=== PATIENT | male | born 1960 | race Hispanic/Latino ===

== ENCOUNTER 2016-10-25 00:39 | Inpatient (IN) | payer OTHER ==
[2016-10-25 00:40] VITALS: BMI 22.1
[2016-10-25] MEDS: Albuterol-Ipratrop 3 mg / 0.5 (3 ml) UD IH SCH ×4 (00:50→03:48)
--- NOTE | 2016-10-25 00:55 | ED PDOC ---
Arrival/HPI - General Chief Complaint: Shortness Of Breath Time Seen by Provider: 10/25/16 00:48 Historian: Patient - History of Present Illness Narrative History of Present Illness (Text): 10/25/16 00:54 Rik Vaughn is a 56 year old male, whose past medical history includes asthma , COPD, seizure disorder, hyperlipidemia, and alcohol abuse, who presents to the Emergency department complaining of shortness of breath. Patient states has been experiencing shortness of breath since symptoms are consistent with previous episodes of asthma. Patient states he used his inhalers at home but denies any significant relief. Patient denies any fever, chills, chest pain, nausea, vomiting, diarrhea, urinary symptoms, back pain, neck pain, headache, dizziness, or any other complaints. Time/Duration: 4-6 hours (18:00 yesterday) Symptom Onset: Gradual Symptom Course: Unchanged Activities at Onset: Rest, Light Context: Home Past Medical History - Provider Review Nursing Documentation Reviewed: Yes - Tetanus Immunization Tetanus Immunization: Unknown - Cardiac Hx Hypertension: Yes - Pulmonary Hx Respiratory Disorders: Yes Hx Asthma: Yes - Neurological Hx Neurological Disorder: Yes (forgetful) Hx Seizures: Yes (last hyoilek69/20/16) Hx Transient Ischemic Attacks (TIA): No Other/Comment: head trauma post fall 20 yrs ago, excision brain hematoma 20 yrs ago - HEENT Hx HEENT Disorder: Yes (reading glasses) Hx Blind: No - Endocrine/Metabolic Hx Hypothyroidism: Yes - Hematological/Oncological Hx Blood Disorders: No - Integumentary Hx Dermatological Disorder: No - Musculoskeletal/Rheumatological Hx Falls: Yes (head trauma 20 yrs ago) - Gastrointestinal Hx Gastrointestinal Disorders: Yes (weight loss) Hx Colostomy: Yes (ileostomy x2) Hx Gastroesophageal Reflux: Yes - Genitourinary/Gynecological Hx Genitourinary Disorders: Yes Hx Prostate Problems: Yes (bph slow urine stream) - Psychiatric Hx Anxiety: Yes Hx Emotional Abuse: No Hx Physical Abuse: No Hx Substance Use: No - Surgical History Hx Appendectomy: Yes Other/Comment: laparotomy/reversal of ileostomy/ partial small bowel resection today 05/18/16, exp lap 02/09/16, small bowel sx 02/16/16, perforated ap, pelvic and mucosa fistula reconstruction, ileostomy 01/2016 - Anesthesia Hx Anesthesia: Yes Hx Anesthesia Reactions: No Hx Malignant Hyperthermia: No - Suicidal Assessment Feels Threatened In Home Enviroment: No Family/Social History - Physician Review Nursing Documentation Reviewed: Yes Family/Social History: No Known Family HX Smoking Status: Former Smoker Hx Alcohol Use: Yes (quit 7 yrs ago) Hx Substance Use: No Allergies/Home Meds Allergies/Adverse Reactions: Allergies No Known Allergies Allergy (Verified 10/25/16 00:47) Review of Systems - Physician Review All systems were reviewed & negative as marked: Yes - Review of Systems Constitutional: Normal. absent: Fevers Eyes: Normal ENT: Normal Respiratory: SOB Cardiovascular: Normal. absent: Chest Pain Gastrointestinal: Normal. absent: Abdominal Pain, Diarrhea, Nausea, Vomiting Genitourinary Male: Normal. absent: Dysuria, Frequency, Hematuria, Urinary Output Changes Musculoskeletal: Normal. absent: Back Pain, Neck Pain Skin: Normal. absent: Rash Neurological: Normal. absent: Headache, Dizziness Endocrine: Normal Hemo/Lymphatic: Normal Psychiatric: Normal Physical Exam Vital Signs Reviewed: Yes Vital Signs Temp Pulse Resp BP Pulse Ox 10/25/16 13:00 93 H 17 119/59 L 97 10/25/16 12:33 87 18 128/69 10/25/16 11:00 87 17 128/69 100 10/25/16 08:58 86 18 126/82 100 10/25/16 07:00 89 17 115/73 98 10/25/16 06:41 113 H 115/73 10/25/16 05:41 100 H 18 120/63 96 10/25/16 04:09 113/66 10/25/16 03:20 109 H 18 121/72 98 10/25/16 00:55 25 H 10/25/16 00:50 98.4 F 116 H 24 153/95 H 93 L Temperature: Afebrile Blood Pressure: Normal Pulse: Regular Respiratory Rate: Normal Appearance: Positive for: Well-Appearing, Non-Toxic, Comfortable Pain Distress: None Mental Status: Positive for: Alert and Oriented X 3 - Systems Exam Head: Present: Atraumatic, Normocephalic Pupils: Present: PERRL Extroacular Muscles: Present: EOMI Conjunctiva: Present: Normal Mouth: Present: Moist Mucous Membranes Neck: Present: Normal Range of Motion Respiratory/Chest: Present: Wheezes. No: Respiratory Distress, Accessory Muscle Use Cardiovascular: Present: Regular Rate and Rhythm, Normal S1, S2. No: Murmurs Abdomen: Present: Normal Bowel Sounds. No: Tenderness, Distention, Peritoneal Signs Back: Present: Normal Inspection Upper Extremity: Present: Normal Inspection. No: Cyanosis, Edema Lower Extremity: Present: Normal Inspection. No: Edema Neurological: Present: GCS=15, CN II-XII Intact, Speech Normal Skin: Present: Warm, Dry, Normal Color. No: Rashes Psychiatric: Present: Alert, Oriented x 3, Normal Insight, Normal Concentration Medical Decision Making ED Course and Treatment: 10/25/16 00:54 Impression: 56 year old male complaining of shortness of breath. Differential Diagnosis include but are not limited to: asthma vs. COPD Plan: -- EKG -- Chest X-ray -- Labs, troponin -- Duoneb -- Solu-medrol -- Reassess and disposition Prior Visits: Notes and results from previous visits were reviewed. Progress Notes: Reviewed EKG, sinus tachycardia at 115 bpm. Non-specific ST/T wave changes. 10/25/16 02:30 Reviewed radiology, Chest X-ray shows no acute processes. 10/25/16 03:[address] Simms, who is aware and agrees with plan. Accepts pt in to his service. Pt will go to Telemetry observation for asthma. Discussed results and hospital observation plan with pt, who is aware and verbalizes understanding. 7am dr simms wants pt evaluated for icu dr brewer will come to ed , dr layton to follow up on icu 10/26/16 06:05 - Lab Interpretations Microbiology Results: Microbiology Results 10/25/16 01:10 Blood-Venous Blood Culture - Preliminary NO GROWTH AFTER 24 HOURS 10/25/16 00:55 Blood-Venous Blood Culture - Preliminary NO GROWTH AFTER 24 HOURS Lab Results: 10/25/16 00:56 10/25/16 00:56 Lab Results 10/25/16 03:00: Phenytoin 8 L 10/25/16 03:00: NT-Pro-B Natriuret Pep 48.3 10/25/16 03:00: PT 10.5, INR 0.97, APTT 25.2 10/25/16 00:56: Sodium 143, Potassium 3.8, Chloride 102, Carbon Dioxide 31, Anion Gap 14, BUN 19, Creatinine 0.9, Est GFR ( Amer) > 60, Est GFR (Non- Af Amer) > 60, Random Glucose 98, Calcium 9.2, Total Bilirubin 0.2, AST 37, ALT 35, Alkaline Phosphatase 122, Troponin I < 0.01 D, Total Protein 7.5, Albumin 4.5, Globulin 3.0, Albumin/Globulin Ratio 1.5 10/25/16 00:56: WBC 17.3 H D, RBC 4.18, Hgb 13.2 L, Hct 38.2 L, MCV 91.4, MCH 31.6, MCHC 34.6, RDW 13.5, Plt Count 256, MPV 11.2 H, Gran % 79.1 H, Lymph % ( Auto) 11.8 L, Patrick % (Auto) 7.2 H, Eos % (Auto) 1.7, Baso % (Auto) 0.2, Gran # 13.65 H, Lymph # 2.0, Patrick # 1.3 H, Eos # 0.3, Baso # 0.03 I have reviewed the lab results: Yes - RAD Interpretation Radiology Orders: 10/25/16 01:55 CHEST PORTABLE [RAD] Stat Monorail Helper: ED Physician - EKG Interpretation Interpreted by ED Physician: Yes Type: 12 lead EKG - Medication Orders Current Medication Orders: Acetaminophen (Tylenol 325mg Tab) 650 mg PO Q4H PRN PRN Reason: Fever >100.5 F Last Admin: 10/25/16 03:51 Dose: 650 mg Re-Assess: MAR Pain/Vitals Document 10/25/16 04:50 RD (Rec: 10/25/16 04:50 RD [id number]) Pain Reassessment Is This A Pain ReAssessment? No Sleep Is patient sleeping during reassessment? No Presence of Pain Presence of Pain No Acetylcysteine (Acetylcysteine 20%) 4 ml IH [id number] [facility] Last Admin: 10/26/16 02:00 Dose: 4 ml Albuterol/Ipratropium (Duoneb 3 Mg/0.5 Mg (3 Ml) Ud) 3 ml IH Q4H PRN PRN Reason: Wheezing Last Admin: 10/25/16 08:48 Dose: 3 ml Aspirin (Ecotrin) 81 mg PO DAILY [facility] Last Admin: 10/25/16 10:03 Dose: 81 mg Enoxaparin Sodium (Lovenox) 40 mg SC DAILY [facility] PRN Reason: Protocol Last Admin: 10/25/16 10:07 Dose: Ergocalciferol (Drisdol 50,000 Intl Units Cap) 1 cap PO WED [facility] Folic Acid (Folic Acid) 1 mg PO DAILY [facility] Last Admin: 10/25/16 10:03 Dose: 1 mg Furosemide (Lasix) 20 mg IVP Q12 [facility] Last Admin: 10/25/16 22:29 Dose: 20 mg Doxycycline Hyclate 100 mg/ (Sodium Chloride) 100 mls @ 100 mls/hr IVPB Q12 [facility] PRN Reason: Protocol Last Admin: 10/25/16 22:32 Dose: 100 mls/hr Cefepime HCl (Maxipime 1gm) 1 gm in 100 mls @ 100 mls/hr IVPB Q12 [facility] PRN Reason: Protocol Last Admin: 10/25/16 23:49 Dose: 100 mls/hr Levalbuterol HCl (Xopenex) 0.63 mg IH [id number] [facility] Last Admin: 10/26/16 02:05 Dose: Not Given Non-Admin Reason: Patient Asleep Levetiracetam (Keppra) 500 mg PO BID [facility] Last Admin: 10/25/16 17:53 Dose: 500 mg Magnesium Oxide (Mag-Ox) 400 mg PO BID [facility] Last Admin: 10/25/16 17:52 Dose: 400 mg Methylprednisolone (Solu-Medrol) 30 mg IVP Q8H [facility] Last Admin: 10/25/16 22:31 Dose: 30 mg Metoprolol Tartrate (Lopressor) 25 mg PO BRKDIN [facility] Last Admin: 10/25/16 17:53 Dose: 25 mg Midodrine (Proamatine) 5 mg PO Q8 [facility] Last Admin: 10/25/16 22:30 Dose: 5 mg Pantoprazole Sodium (Protonix Ec Tab) 40 mg PO 0630 [facility] Last Admin: 10/25/16 06:40 Dose: 40 mg Phenytoin Sodium (Dilantin) 200 mg PO Q12 [facility] Last Admin: 10/25/16 22:29 Dose: 200 mg Potassium Chloride (K-Dur 20 Meq Er Tab) 20 meq PO ACBD [facility] Last Admin: 10/25/16 17:53 Dose: 20 meq Tamsulosin HCl (Flomax) 0.4 mg PO DAILY [facility] Last Admin: 10/25/16 10:03 Dose: 0.4 mg Discontinued Medications Albuterol/Ipratropium (Duoneb 3 Mg/0.5 Mg (3 Ml) Ud) 3 ml IH Q15M [facility] Last Admin: 10/25/16 03:48 Dose: Albuterol/Ipratropium (Duoneb 3 Mg/0.5 Mg (3 Ml) Ud) 3 ml IH STAT STA Stop: 10/25/16 03:05 Last Admin: 10/25/16 03:12 Dose: 3 ml Doxycycline Hyclate 100 mg/ (Sodium Chloride) 100 mls @ 100 mls/hr IVPB STAT STA PRN Reason: Protocol Stop: 10/25/16 04:39 Last Admin: 10/25/16 04:36 Dose: 100 mls/hr Ceftriaxone Sodium (Rocephin 1 Gram Ivpb) 1 gm in 100 mls @ 200 mls/hr IVPB STAT STA PRN Reason: Protocol Stop: 10/25/16 04:09 Last Admin: 10/25/16 03:49 Dose: 200 mls/hr Methylprednisolone 30 gm/ (Sodium Chloride) 250 mls @ 500 mls/hr IV Q8H [facility] Phenytoin 500 mg/ Sodium (Chloride) 100 mls @ 120 mls/hr IVPB STAT STA Stop: 10/25/16 07:22 Last Admin: 10/25/16 06:58 Dose: 120 mls/hr Methylprednisolone (Solu-Medrol) 125 mg IVP ONCE ONE Stop: 10/25/16 00:55 Last Admin: 10/25/16 01:05 Dose: 125 mg Phenytoin Sodium (Dilantin) 100 mg PO Q8H [facility] Last Admin: 10/25/16 04:36 Dose: 100 mg - Ernestineibe Statement The provider has reviewed the documentation as recorded by the Ron Sheikh All medical record entries made by the Ron were at my direction and personally dictated by me. I have reviewed the chart and agree that the record accurately reflects my personal performance of the history, physical exam, medical decision making, and the department course for this patient. I have also personally directed, reviewed, and agree with the discharge instructions and disposition. Disposition/Present on Arrival - Present on Arrival Any Indicators Present on Arrival: No History of DVT/PE: No History of Uncontrolled Diabetes: No Urinary Catheter: No History of Decub. Ulcer: No History Surgical Site Infection Following: None - Disposition Have Diagnosis and Disposition been Completed?: Yes Diagnosis: Asthma attack, Pneumonia Disposition: HOSPITALIZED Disposition Time: 07:00 Patient Problems: Current Active Problems Problem Status Onset Asthma attack Acute Condition: FAIR
[2016-10-25 02:10] LABS: ADD MANUAL DIFF? NO
[2016-10-25 02:13] LABS: BASO # 0.03 K/mm3 (0.0-2.0); BASO % 0.2 % (0.0-3.0); EOS # 0.3 (0.0-0.7); EOS % 1.7 % (1.5-5.0); GRAN # 13.65 (1.4-6.5); GRAN % 79.1 % (50.0-68.0); HEMATOCRIT 38.2 % (42.0-52.0); LYMPH % 11.8 % (22.0-35.0); MEAN CELL VOLUME 91.4 fL (80.0-105.0); MEAN CORPUSCULAR HEMOGLOBIN 31.6 pg (25.0-35.0); MEAN CORPUSCULAR HGB CONC 34.6 g/dl (31.0-37.0); MEAN PLATELET VOLUME 11.2 fl (7.0-11.0); MONO # 1.3 (0.1-0.6); MONO % 7.2 % (1.0-6.0); PLATELET COUNT 256 10^3/uL (120.0-450.0); RED CELL DISTRIBUTION WIDTH 13.5 % (11.5-14.5); WHITE BLOOD COUNT 17.3 10^3/ul (4.5-11.0)
[2016-10-25 02:22] LABS: ALB/GLOB RATIO 1.5 (1.1-1.8); ALKALINE PHOSPHATASE 122 U/L (38-133); ALT/SGPT 35 U/L (7-56); AST/SGOT 37 U/L (15-59); BILIRUBIN,TOTAL 0.2 mg/dL (0.2-1.3); BLOOD UREA NITROGEN 19 mg/dL (7-21); CALCIUM 9.2 mg/dL (8.4-10.5); CARBON DIOXIDE 31 mmol/L (21-33); CHLORIDE 102 mmol/L (98-107); GFR AFRICAN-AMERICAN > 60; GLUCOSE,RANDOM 98 mg/dL (70-110); POTASSIUM 3.8 mmol/L (3.6-5.0); SODIUM 143 mmol/L (132-148); TOTAL PROTEIN 7.5 g/dL (5.8-8.3)
[2016-10-25 02:35] LABS: TROPONIN I < 0.01 ng/mL
[2016-10-25] MEDS ORDERED: Albuterol-Ipratrop 3 mg / 0.5 (3 ml) UD IH STA (03:04)
[2016-10-25] MEDS ORDERED: cefTRIAXone 1 gm 1 GM/100 ML BAG IVPB STA (03:40)
[2016-10-25] MEDS ORDERED: Albuterol-Ipratrop 3 mg / 0.5 (3 ml) UD IH PRN (03:41)
[2016-10-25] MEDS: Magnesium Oxide 400 mg Tab UD PO SCH ×3 (04:09→17:52)
[2016-10-25] MEDS ORDERED: methylPREDNISolone 30 GM in Sodium Chloride 0.9% 250 ML IV SCH (04:15)
[2016-10-25 04:18] LABS: INR 0.97 (0.93-1.08); PARTIAL THROMBOPLASTIN TIME 25.2 Seconds (23.7-30.8)
[2016-10-25 05:19] LABS: TROPONIN I < 0.01 ng/mL
[2016-10-25] MEDS: MethylPREDNISolone 40 mg Vial IVP SCH ×3 (05:25→22:31)
[2016-10-25] MEDS: Enoxaparin 40 mg Syringe SC SCH ×2 (05:32→10:07)
[2016-10-25] MEDS ORDERED: Phenytoin 500 MG in Sodium Chloride 0.9% 100 ML IVPB STA (06:33)
[2016-10-25] MEDS: Pantoprazole 40 mg EC Tab PO SCH (06:40)
[2016-10-25] MEDS: Potassium Chloride 20 mEq ER Tab PO SCH ×2 (06:41→17:53)
--- NOTE | 2016-10-25 07:24 | ED PDOC ---
Physical Exam Vital Signs Temp Pulse Resp BP Pulse Ox 10/25/16 08:58 86 18 126/82 100 10/25/16 07:00 89 17 115/73 98 10/25/16 06:41 113 H 115/73 10/25/16 05:41 100 H 18 120/63 96 10/25/16 04:09 113/66 10/25/16 03:20 109 H 18 121/72 98 10/25/16 00:55 25 H 10/25/16 00:50 98.4 F 116 H 24 153/95 H 93 L Medical Decision Making ED Course and Treatment: 10/25/16 07:00 Patient signed out to me by Dr. Martinez. Pending ICU Eval/Consult. 10/25/16 09:[address] Alexis Leon. We agree that patient can be admitted to Telemetry as planned. Patient is not in respiratory distress. - Lab Interpretations Lab Results: 10/25/16 00:56 10/25/16 00:56 Lab Results 10/25/16 03:00: Phenytoin 8 L 10/25/16 03:00: NT-Pro-B Natriuret Pep 48.3 10/25/16 03:00: PT 10.5, INR 0.97, APTT 25.2 10/25/16 00:56: Sodium 143, Potassium 3.8, Chloride 102, Carbon Dioxide 31, Anion Gap 14, BUN 19, Creatinine 0.9, Est GFR ( Amer) > 60, Est GFR (Non- Af Amer) > 60, Random Glucose 98, Calcium 9.2, Total Bilirubin 0.2, AST 37, ALT 35, Alkaline Phosphatase 122, Troponin I < 0.01 D, Total Protein 7.5, Albumin 4.5, Globulin 3.0, Albumin/Globulin Ratio 1.5 10/25/16 00:56: WBC 17.3 H D, RBC 4.18, Hgb 13.2 L, Hct 38.2 L, MCV 91.4, MCH 31.6, MCHC 34.6, RDW 13.5, Plt Count 256, MPV 11.2 H, Gran % 79.1 H, Lymph % ( Auto) 11.8 L, Bland % (Auto) 7.2 H, Eos % (Auto) 1.7, Baso % (Auto) 0.2, Gran # 13.65 H, Lymph # 2.0, Bland # 1.3 H, Eos # 0.3, Baso # 0.03 - RAD Interpretation Radiology Orders: 10/25/16 01:55 CHEST PORTABLE [RAD] Stat - Medication Orders Current Medication Orders: Acetaminophen (Tylenol 325mg Tab) 650 mg PO Q4H PRN PRN Reason: Fever >100.5 F Last Admin: 10/25/16 03:51 Dose: 650 mg Re-Assess: MAR Pain/Vitals Document 10/25/16 04:50 RD (Rec: 10/25/16 04:50 RD [id number]) Pain Reassessment Is This A Pain ReAssessment? No Sleep Is patient sleeping during reassessment? No Presence of Pain Presence of Pain No Acetylcysteine (Acetylcysteine 20%) 4 ml IH [id number] [facility] Last Admin: 10/25/16 08:03 Dose: 4 ml Albuterol/Ipratropium (Duoneb 3 Mg/0.5 Mg (3 Ml) Ud) 3 ml IH Q4H PRN PRN Reason: Wheezing Last Admin: 10/25/16 08:48 Dose: 3 ml Aspirin (Ecotrin) 81 mg PO DAILY [facility] Enoxaparin Sodium (Lovenox) 40 mg SC DAILY [facility] PRN Reason: Protocol Last Admin: 10/25/16 05:32 Dose: 40 mg Ergocalciferol (Drisdol 50,000 Intl Units Cap) 1 cap PO WED [facility] Folic Acid (Folic Acid) 1 mg PO DAILY [facility] Furosemide (Lasix) 20 mg IVP Q12 [facility] Last Admin: 10/25/16 04:09 Dose: 20 mg Doxycycline Hyclate 100 mg/ (Sodium Chloride) 100 mls @ 100 mls/hr IVPB Q12 [facility] PRN Reason: Protocol Cefepime HCl (Maxipime 1gm) 1 gm in 100 mls @ 100 mls/hr IVPB Q12 [facility] PRN Reason: Protocol Levalbuterol HCl (Xopenex) 0.63 mg IH [id number] [facility] Last Admin: 10/25/16 08:03 Dose: 0.63 mg Levetiracetam (Keppra) 500 mg PO BID [facility] Last Admin: 10/25/16 04:09 Dose: 500 mg Magnesium Oxide (Mag-Ox) 400 mg PO BID [facility] Last Admin: 10/25/16 04:09 Dose: 400 mg Methylprednisolone (Solu-Medrol) 30 mg IVP Q8H [facility] Last Admin: 10/25/16 05:25 Dose: Metoprolol Tartrate (Lopressor) 25 mg PO BRKDIN [facility] Last Admin: 10/25/16 06:41 Dose: 25 mg Midodrine (Proamatine) 5 mg PO Q8 [facility] Last Admin: 10/25/16 05:32 Dose: 5 mg Pantoprazole Sodium (Protonix Ec Tab) 40 mg PO 0630 [facility] Last Admin: 10/25/16 06:40 Dose: 40 mg Phenytoin Sodium (Dilantin) 200 mg PO Q12 [facility] Potassium Chloride (K-Dur 20 Meq Er Tab) 20 meq PO ACBD [facility] Last Admin: 10/25/16 06:41 Dose: 20 meq Tamsulosin HCl (Flomax) 0.4 mg PO DAILY [facility] Discontinued Medications Albuterol/Ipratropium (Duoneb 3 Mg/0.5 Mg (3 Ml) Ud) 3 ml IH Q15M [facility] Last Admin: 10/25/16 03:48 Dose: Albuterol/Ipratropium (Duoneb 3 Mg/0.5 Mg (3 Ml) Ud) 3 ml IH STAT STA Stop: 10/25/16 03:05 Last Admin: 10/25/16 03:12 Dose: 3 ml Doxycycline Hyclate 100 mg/ (Sodium Chloride) 100 mls @ 100 mls/hr IVPB STAT STA PRN Reason: Protocol Stop: 10/25/16 04:39 Last Admin: 10/25/16 04:36 Dose: 100 mls/hr Ceftriaxone Sodium (Rocephin 1 Gram Ivpb) 1 gm in 100 mls @ 200 mls/hr IVPB STAT STA PRN Reason: Protocol Stop: 10/25/16 04:09 Last Admin: 10/25/16 03:49 Dose: 200 mls/hr Methylprednisolone 30 gm/ (Sodium Chloride) 250 mls @ 500 mls/hr IV Q8H [facility] Phenytoin 500 mg/ Sodium (Chloride) 100 mls @ 120 mls/hr IVPB STAT STA Stop: 10/25/16 07:22 Last Admin: 10/25/16 06:58 Dose: 120 mls/hr Methylprednisolone (Solu-Medrol) 125 mg IVP ONCE ONE Stop: 10/25/16 00:55 Last Admin: 10/25/16 01:05 Dose: 125 mg Phenytoin Sodium (Dilantin) 100 mg PO Q8H [facility] Last Admin: 10/25/16 04:36 Dose: 100 mg - Ron Statement The provider has reviewed the documentation as recorded by the Ron Wei Provider Attestation: All medical record entries made by the Ron were at my direction and personally dictated by me. I have reviewed the chart and agree that the record accurately reflects my personal performance of the history, physical exam, medical decision making, and the department course for this patient. I have also personally directed, reviewed, and agree with the discharge instructions and disposition. Disposition/Present on Arrival - Present on Arrival Any Indicators Present on Arrival: No History of DVT/PE: No History of Uncontrolled Diabetes: No Urinary Catheter: No History of Decub. Ulcer: No History Surgical Site Infection Following: None - Disposition Have Diagnosis and Disposition been Completed?: Yes Diagnosis: Asthma attack Disposition: HOSPITALIZED Disposition Time: 03:39 Patient Plan: Admission Condition: FAIR
[2016-10-25] MEDS: Levalbuterol 0.63 MG/3 ML Inhal Soln UD IH SCH ×2 (08:03→14:26)
[2016-10-25] MEDS: Acetylcysteine 20% Inhal Soln (4ml) IH SCH ×2 (08:03→14:26)
[2016-10-25 08:38] LABS: TROPONIN I 0.02 ng/mL
--- NOTE | 2016-10-25 09:13 | CP.PCM.PN ---
Subjective - Date & Time of Evaluation Date of Evaluation: 10/25/16 Time of Evaluation: 08:40 - Subjective Subjective: 56 y/o M came to the ER w/ SOB , chest tightness and wheezing. In the ER received > 4 Albuterol treatments and Solumedrol. I was called to evaluate the patient per the PCP and ER physicians at 4a.m. I came to see the patient in the morning. He is sitting up speaking in full sentences but is upset and doesn't want to be examined or give any pertinent history . The patient did mention that he doesn't have a [employer] and he has been only using PROAIR roughly 10x day . His labs were reviewed and imaging. No findings of concern on the CT chest. Labs do show elevated WBC , for which he is started on ABX per the PCP. Elevated Lactate likely from Increased albuterol usage ( high proven in literature). Can repeat once albuterol frequency is lowered. No use of BIPAP or accessory muscles on R.A. Dr. Pearson from pulmonary is here as well and will be managing onwards. If pt worsens and warrants ICU please call back. Objective - Vital Signs/Intake and Output Vital Signs (last 24 hours): Temp Pulse Resp BP Pulse Ox 98.4 F 86 18 126/82 100 10/25/16 00:50 10/25/16 08:58 10/25/16 08:58 10/25/16 08:58 10/25/16 08:58 - Medications Medications: Current Medications Acetaminophen (Tylenol 325mg Tab) 650 mg PO Q4H PRN PRN Reason: Fever >100.5 F Last Admin: 10/25/16 03:51 Dose: 650 mg Acetylcysteine (Acetylcysteine 20%) 4 ml IH [id number] [facility] Last Admin: 10/25/16 08:03 Dose: 4 ml Albuterol/Ipratropium (Duoneb 3 Mg/0.5 Mg (3 Ml) Ud) 3 ml IH Q4H PRN PRN Reason: Wheezing Last Admin: 10/25/16 08:48 Dose: 3 ml Aspirin (Ecotrin) 81 mg PO DAILY [facility] Enoxaparin Sodium (Lovenox) 40 mg SC DAILY [facility] PRN Reason: Protocol Last Admin: 10/25/16 05:32 Dose: 40 mg Ergocalciferol (Drisdol 50,000 Intl Units Cap) 1 cap PO WED [facility] Folic Acid (Folic Acid) 1 mg PO DAILY [facility] Furosemide (Lasix) 20 mg IVP Q12 [facility] Last Admin: 10/25/16 04:09 Dose: 20 mg Doxycycline Hyclate 100 mg/ (Sodium Chloride) 100 mls @ 100 mls/hr IVPB Q12 [facility] PRN Reason: Protocol Cefepime HCl (Maxipime 1gm) 1 gm in 100 mls @ 100 mls/hr IVPB Q12 [facility] PRN Reason: Protocol Levalbuterol HCl (Xopenex) 0.63 mg IH [id number] [facility] Last Admin: 10/25/16 08:03 Dose: 0.63 mg Levetiracetam (Keppra) 500 mg PO BID [facility] Last Admin: 10/25/16 04:09 Dose: 500 mg Magnesium Oxide (Mag-Ox) 400 mg PO BID [facility] Last Admin: 10/25/16 04:09 Dose: 400 mg Methylprednisolone (Solu-Medrol) 30 mg IVP Q8H [facility] Last Admin: 10/25/16 05:25 Dose: Not Given Metoprolol Tartrate (Lopressor) 25 mg PO BRKDIN [facility] Last Admin: 10/25/16 06:41 Dose: 25 mg Midodrine (Proamatine) 5 mg PO Q8 [facility] Last Admin: 10/25/16 05:32 Dose: 5 mg Pantoprazole Sodium (Protonix Ec Tab) 40 mg PO 0630 [facility] Last Admin: 10/25/16 06:40 Dose: 40 mg Phenytoin Sodium (Dilantin) 200 mg PO Q12 [facility] Potassium Chloride (K-Dur 20 Meq Er Tab) 20 meq PO ACBD [facility] Last Admin: 10/25/16 06:41 Dose: 20 meq Tamsulosin HCl (Flomax) 0.4 mg PO DAILY [facility] - Labs Labs: PT 10.5 Seconds (9.9-11.8) 10/25/16 03:00 INR 0.97 (0.93-1.08) 10/25/16 03:00 APTT 25.2 Seconds (23.7-30.8) 10/25/16 03:00 - Constitutional Appears: No Acute Distress, Unkempt - Respiratory Exam Respiratory Exam: Wheezes
--- NOTE | 2016-10-25 09:19 | RAD ---
HISTORY: sob COMPARISON: 05/25/2016 FINDINGS: LUNGS: No active pulmonary disease. PLEURA: No significant pleural effusion identified, no pneumothorax apparent. CARDIOVASCULAR: Normal. OSSEOUS STRUCTURES: No significant abnormalities. VISUALIZED UPPER ABDOMEN: Normal. OTHER FINDINGS: None. IMPRESSION: No active disease.
[2016-10-25] MEDS: Cefepime 1gm in NS 100ml 1 GM/100 ML BAG IVPB SCH ×2 (10:03→23:49)
--- NOTE | 2016-10-25 10:58 | CT ---
PROCEDURE: CT Chest without contrast HISTORY: COPD COMPARISON: None. TECHNIQUE: Contiguous axial images were obtained through the chest without intravenous contrast enhancement. Sagittal and coronal reconstructions were performed. Radiation dose (DLP): 328 mGy-cm. This CT exam was performed using one or more of the following dose reduction techniques: Automated exposure control, adjustment of the mA and/or kV according to patient size, and/or use of iterative reconstruction technique. FINDINGS: LUNGS: Minimal interstitial infiltrate is seen in the left lower lobe. The lungs are otherwise clear. No evidence of emphysema MEDIASTINUM: Unremarkable thoracic aorta. No aneurysm. Normal sized heart. Main pulmonary artery unremarkable. No vascular congestion. No lymphadenopathy. PLEURA: No pleural fluid. No pneumothorax. BONES: No fracture. No destructive lesion. UPPER ABDOMEN: Grossly unremarkable. OTHER FINDINGS: The report concurs with the preliminary [facility] report IMPRESSION: Minimal interstitial infiltrate is seen in the left lower lobe. The lungs are otherwise clear. No evidence of emphysema
--- NOTE | 2016-10-25 12:07 | CARD ---
APPROVED REPORT EKG Measurement Heart [id number] <Conclusion> Poor data quality, interpretation may be adversely affected Sinus tachycardia Possible Left atrial enlargement Rightward axis Pulmonary disease pattern Abnormal ECG
[2016-10-25 12:45] LABS: TROPONIN I < 0.01 ng/mL
--- NOTE | 2016-10-25 16:09 | CON ---
DATE: 10/25/2016 The patient was seen and examined in the Emergency Room. I examined the patient together with Dr. Leon from intensive care unit, who was also called to evaluate the patient for possible admission to intensive care unit. The patient currently not in acute distress. He has mild shortness of breath at rest and he is receiving continuous albuterol inhalation treatment. He is able to speak in full sentences and give history. HISTORY OF PRESENT ILLNESS: The patient reported increasing shortness of breath over the last 10 days. He denied fever, denied chills, denied respiratory infections or chest pain. This time, the exacerbation or worsening occurred suddenly, so he came to Emergency Room. PAST MEDICAL HISTORY: Positive for bronchial asthma since childhood, chronic obstructive pulmonary disease, seizure disorder, hyperlipidemia, alcohol abuse. So seizure disorder, last seizure was 03/19/2016. PAST SURGICAL HISTORY: In addition to above history, positive for laparotomy temporary ileostomy, partial bowel resection 5 months ago. This was caused by a perforated appendix. FAMILY HISTORY: Negative for inherited diseases. SOCIAL HISTORY: He is a former smoker, quit 7 years ago. History of alcohol abuse, no substance abuse. ALLERGIES: No known allergies. REVIEW OF SYSTEMS: Conducted by reviewing all sources: CONSTITUTIONAL: Absent fevers. EYES, EARS, NOSE AND THROAT: Negative. RESPIRATORY: See history of present illness. CARDIOVASCULAR: No chest pain, no palpitations. GASTROINTESTINAL: No nausea, vomiting, diarrhea. GENITOURINARY: No dysuria or hematuria. MUSCULOSKELETAL: No back pain. SKIN: No new skin rashes. NEUROLOGIC: No new abnormalities. All other systems negative. PHYSICAL EXAMINATION: VITAL SIGNS: His temperature is 98.4, pulse is 100, respirations 22, blood pressure is 113/66, pulse oximetry currently is 100% on nasal cannula. HEAD, EARS, NOSE, AND THROAT: Atraumatic, normocephalic. NECK: Supple with no jugular vein distention. RESPIRATORY: Diffuse expiratory wheezes. Moderate tightness. No crackles. HEART: Regular, tachycardia, no murmurs. GASTROINTESTINAL: Abdomen soft, nontender. Surgical scars present. : Within normal limits EXTREMITIES: No edema. Good pulses. SKIN: Warm, dry, no cyanosis. NEUROLOGIC: Limited at present time. Chest x-ray was evaluated by me, showed no acute infiltrates. The patient also underwent CT angiogram, negative for pulmonary embolism. LABORATORY DATA: Reviewed. BNP is normal at 48. WBCs elevated at 17.3, hemoglobin 13.2, hematocrit 38, platelets 256,000. Sodium 143, potassium 3.8, BUN 19, creatinine 0.9, blood sugar is 98. ASSESSMENT AND PLAN: Exacerbation of bronchial asthma. The patient uses only albuterol inhaler at home. He is not on inhalant steroids, actually refusing to give a more detailed history about his asthma. His medical attending is Dr. Trevor Yin. Currently, he is receiving nebulizer treatment. He was started on doxycycline and ceftriaxone and also started on Solu-Medrol. I agree with current therapy. If patient's condition stabilizes, he can go to telemetry. Otherwise, ICU will reconsider. The patient could benefit from inhaled steroids as well as long acting bronchodilators on an outpatient basis. He may also benefit for workup for newer biological agent for asthma. However, he is not cooperative in the sense that he is refusing to consider those ideas. We will continue following him closely. Alex Arroyo MD cc: [id number] TT: 10/25/2016 16:08:13 Confirmation # [id number] Dictation # [id number] en MTDD
--- NOTE | 2016-10-25 20:20 | HP ---
The patient is a 56-year-old male who presented to the Emergency Room with complaints of sh ortness of breath, wheezing, asthma symptoms. The patient stated that he was trying to work at his h ome by probably removing some old paint or was trying to get rid of the nicotine smell in his house. After that, the patient developed shortness of breath and wheezing. The patient came to the Emergen cy Room. The patient's 13-system review was done. Pertinent positives and negatives dictated as per shortness of breath and wheezing. CODE STATUS: Full code. LIVING WILL AND ADVANCED DIRECTIVE: None. ALLERGIES: None. HEIGHT: 5 feet 9. WEIGHT: 150. BMI: 22. HOME MEDICATIONS: Aspirin 81 mg daily. Midodrine 5 mg q. 8 hours, which is incorrect dose; the danica ent is supposed to be on 10 mg 3 times a day. The patient is on Xopenex nebulizer 0.63 mg every 6 ho urs, Lasix 20 mg twice a day, folic acid 1 mg daily, vitamin B12 1000 mcg IM monthly, vitamin D2 50,0 00 units weekly, Keppra 500 mg twice a day, K-Dur 20 mEq twice a day or once a day, Dilantin 200 mg t wice a day, Protonix 40 mg daily. The patient is also on Zestril 2.5 mg daily. The patient is on Li pitor 40 mg daily. The patient is on Protonix 40 mg daily. The patient is on ProAmatine 10 mg 3 winston es a day. These doses of home medications are most likely not correct, which will be updated when e office records are available. SOCIAL HISTORY: Positive for former smoking, positive for former alcohol and questionable drug use. FAMILY HISTORY: Not available. OCCUPATIONAL HISTORY: Disabled male. PAST MEDICAL AND SURGICAL HISTORY: History of seizure disorder, history of nicotine and alcohol depe ndence in the past, history of vitamin B12 deficiency, history of chronic obstructive pulmonary disea se, history of idiopathic hypotension, history of cardiomyopathy with history of systolic congestive heart failure, history of cardiac catheterization, history of hypovitaminosis D, history of seizure d isorder, history of hypokalemia, history of seizure disorder, history of gastroesophageal reflux, his tory of perforated ruptured appendix and appendicitis, with history of abdominal abscess, history of colostomy, history of reversal of colostomy, history of intraabdominal abscess drainage, history of s epsis and septic shock, history of anemia, history of hyponatremia, history of dyslipidemia, history of prostate hypertrophy, history of prostatic hypertrophy. For details of history and other details, please refer to the previous admission and discharge summar y and history of physical examination in [facility]. PHYSICAL EXAMINATION: The patient was evaluated in the Emergency Room at bed 7 by ER physician. VITAL SIGNS: The patient's T-max was afebrile. Heart rate ranged from 100 to 116. Blood pressure 1 20/63, 128/64, 158/95. Heart rate between 98 and 100. The patient later on was seen and examined in room 577, bed 1. GENERAL: The patient was initially evaluated by the kennel attendant for possible admission to the intens gerald care unit, but since the patient was stabilized in the Emergency Room, the patient was then downg raded to telemetry then to med-surg. The patient is seen lying in the bed in room 577, bed 1. HEAD: Normocephalic, atraumatic. HEENT: Shows pinkish, pale conjunctivae, anicteric sclerae. No oropharyngeal lesion. NECK: No neck rigidity. CHEST: Kyphosis. LUNGS: Shows positive rhonchi, positive wheezing, positive creps, positive rales left more than the right. HEAD: Normocephalic, atraumatic. HEENT: Shows pinkish, pale conjunctivae, anicteric sclerae. No oropharyngeal lesion. NECK: No neck rigidity. CHEST: Kyphosis. LUNGS: As dictated above. Positive rhonchi, positive wheezing, positive crackles, rales left more t nixon the right. CARDIOVASCULAR: S1, S2, regular rhythm. ABDOMEN: Slightly protuberant with healed surgical scar of colostomy. GENITALIA: Male. RECTAL: Deferred. EXTREMITIES: Shows no pitting edema, no calf tenderness, no Homans sign. Positive ARISTIDES stockings. MUSCULOSKELETAL: Shows a body mass index of 22.2. NEUROLOGIC: The patient is alert, awake, oriented x 3. Cranial nerves II-XII intact. GAIT: Could not be tested. VASCULAR: Palpated pulses. Plantars are downward. DTRs are 2+. PSYCHIATRIC: Negative. DIAGNOSTICS: WBC count is 17.3, hemoglobin and hematocrit 13.2 and 38.2, platelet 256. Lactic acid initially 3.9 down to 2.5. 79 segs. Dilantin level 8. Chemistry is most of the chemistry is within normal limits. CPK slightly elevated in the 300s. Troponin is negative. BNP is less than 50. The patient's last blood pressure 120/72, pulse 82. CT of the chest was done, which shows left lower lo be interstitial infiltrate. EKG shows sinus tachycardia, possible right axis deviation with possible right ventricular conduction delay. The patient was seen in the Emergency Room by the ER physician. The patient was given a nebulizer tr eatment, IV steroids, Solu-Medrol 125 mg was given. The patient was Emergency Room. The patie nt was evaluated by kennel attendant because of elevated lactic acid level. The patient was initially mana luated by kennel attendant for ICU admission, but later on, the patient was stabilized and downgraded. Th e patient was then admitted to telemetry and then down to med-surg. IMPRESSION AND PLAN: 1. Acute exacerbation of bronchial asthma versus chronic obstructive pulmonary disease with bronchos pasm, wheezing. 2. Possible community-acquired versus healthcare-associated left lower lobe pneumonia and atelectasi s. 3. Lactic acidosis. 4. Leukocytosis with granulocytosis. 5. Tachycardia. 6. Questionable systemic inflammatory response syndrome. 7. Right axis deviation. 8. Questionable right ventricular conduction delay versus right bundle branch block. 9. Transient hypotension. 10. Tachycardia. 11. History of seizure disorder with subtherapeutic Dilantin level. 12. History of breakthrough seizures. 13. History of Dilantin toxicity. 14. History of poor compliance. 15. History of alcoholic cardiomyopathy. 16. History of hypotension, history of chronic obstructive pulmonary disease, history of hypovitamin osis D, history of seizure disorder, history of hypokalemia, history of gastroesophageal reflux. PLAN: At this time, the patient is to be admitted to [facility]. The patient has been s tarted on bronchodilators with Xopenex and Mucomyst nebulizer treatment. The patient has been given a Dilantin loading dose 500 mg IV. The patient is now placed on Dilantin 200 q. 12. The patient sta rted on Vibramycin 100 mg IV q. 12, vitamin D 50,000 units weekly. The patient started on aspirin 81 daily, Flomax 0.4 mg daily, folic acid 1 mg daily, K-Dur 20 mEq twice a day, Keppra 500 mg twice a d ay, Lasix 20 mg IV q. 12, Lopressor 25 mg q. 12, Lovenox 40 mg subQ daily for deep venous thrombosis prophylaxis, magnesium oxide 400 mg twice a day. The patient is started on Maxipime 1 gram IV q. 12. The patient was already given . The patient is resumed on ProAmatine 5 mg 3 times a day or 10 mg 3 times a day, Protonix 40 mg daily, Solu-Medrol 30 mg IV q. 8, Tylenol 650 q. 4 p.r.n. At present, the patient is to be admitted. In addition, the patient will be requested to be seen by infectious, by Dr. Angel; cardiology, Dr. López; pulmonary, Dr. Witt. At present, the patient is admitted to [facility]. The patient's further management is dependent upon the clini moi condition, hemodynamic status, and as per the patient response to therapeutic intervention, as pe r the patient's diagnostic test results and as per recommendation by all the physicians involved in t he care of the patient. Dictated, electronically signed, not read. Trevro Yin MD cc: [id number] TT: 10/25/2016 20:20:23 geovany
--- NOTE | 2016-10-25 21:05 | CON ---
DATE: 10/25/2016 The patient seen in the Emergency Room earlier. CHIEF COMPLAINT: Weakness and shortness of breath times several days. HISTORY OF PRESENT ILLNESS: This is a 56-year-old male with past medical history significant for ast hma, seizures, high cholesterol, GERD, history of appendectomy, who was in the hospital recently in [facility], who is now admitted, in the Emergency Room saw Dr. Rik Martinez complaining of shortness of breath. He denied any fevers, any chills, no chest pain, nausea, vomiting, no diarrhea or constipati on. PAST MEDICAL HISTORY: Significant for COPD, seizures, hyperlipidemia, asthma, GERD, alcohol abuse. The patient's past medical history is also significant for hypertension. PAST SURGICAL HISTORY: Significant for appendectomy. The patient also had a laparotomy and reversal of ileostomy, partial small bowel resection in 04/2016. MEDICATIONS: At home include Ecotrin, Lasix, Keppra, Protonix, phenytoin, folic acid. PHYSICAL EXAMINATION: GENERAL: The patient is in bed in no acute distress. VITAL SIGNS: Temperature of 98, heart rate of 113, respiratory rate was up to 24-25, blood pressure is 120/60, saturation was down to 93% in the Emergency Room on admission on room air. HEENT: Unremarkable. NECK: Supple. LUNGS: Have decreased breath sounds. HEART: Normal S1, S2. ABDOMEN: Soft, nontender, no organomegaly, no rebound, no guarding. The scars are present and have healed nicely. LABORATORY EXAMINATION: Reveals a white count of 17,300, hemoglobin of 13, platelets of 256. Chemis tries reveal the BUN of 19, creatinine of 0.9. Lactic acid is 3.9. BUN of 19, creatinine of 0.9. Th e patient had a CAT scan of the chest, interstitial infiltrates seen in the left lobe. The patient h ad a chest x-ray which showed no active disease. The patient was seen again by Dr. Thomas in the Em ergency Room. Dr. Leon's note is reviewed. The patient had an EKG, no reading available. ASSESSMENT AND PLAN: This is a 56-year-old male with asthma, seizures, high cholesterol, gastroesoph ageal reflux disease, chronic obstructive lung disease, alcohol abuse, hypertension. Last hospitaliz ation was in April over 5 months ago. Now admitted with severe sepsis with left-sided community-a cquired pneumonia. We will treat the patient with doxycycline, was started by Dr. Yin, and cefepim e, prednisone, pending blood cultures, urine cultures, sputum cultures and procalcitonin level. Will make further recommendations. Will follow closely with you. The patient had a human immunodeficien cy virus test in January which was negative. Santosh Angel MD cc: [id number] TT: 10/25/2016 21:04:51 Confirmation # [id number] Dictation # [id number] rn
[2016-10-26] MEDS: Acetylcysteine 20% Inhal Soln (4ml) IH SCH ×4 (02:00→20:45)
[2016-10-26] MEDS: Levalbuterol 0.63 MG/3 ML Inhal Soln UD IH SCH ×5 (02:01→20:45)
[2016-10-26] MEDS: MethylPREDNISolone 40 mg Vial IVP SCH ×3 (06:03→21:23)
[2016-10-26] MEDS: Pantoprazole 40 mg EC Tab PO SCH (06:03)
[2016-10-26 07:46] LABS: ADD MANUAL DIFF? NO
[2016-10-26 07:58] LABS: BASO # 0.02 K/mm3 (0.0-2.0); BASO % 0.2 % (0.0-3.0); EOS # 0.2 (0.0-0.7); EOS % 1.6 % (1.5-5.0); GRAN # 8.65 (1.4-6.5); GRAN % 78.3 % (50.0-68.0); HEMATOCRIT 38.6 % (42.0-52.0); LYMPH # 1.5 (1.2-3.4); LYMPH % 13.7 % (22.0-35.0); MEAN CELL VOLUME 92.3 fL (80.0-105.0); MEAN CORPUSCULAR HEMOGLOBIN 30.9 pg (25.0-35.0); MEAN CORPUSCULAR HGB CONC 33.4 g/dl (31.0-37.0); MEAN PLATELET VOLUME 10.6 fl (7.0-11.0); MONO # 0.7 (0.1-0.6); MONO % 6.2 % (1.0-6.0); PLATELET COUNT 260 10^3/uL (120.0-450.0); WHITE BLOOD COUNT 11.1 10^3/ul (4.5-11.0)
[2016-10-26] MEDS: Budesonide 0.5 mg/2 ml Inhal Susp UD IH SCH ×2 (08:07→20:45)
[2016-10-26 08:09] LABS: ALB/GLOB RATIO 1.5 (1.1-1.8); ALKALINE PHOSPHATASE 115 U/L (38-133); ALT/SGPT 40 U/L (7-56); AST/SGOT 32 U/L (15-59); BILIRUBIN,DIRECT 0.3 mg/dL (0.0-0.4); BILIRUBIN,TOTAL 0.3 mg/dL (0.2-1.3); BLOOD UREA NITROGEN 32 mg/dL (7-21); CALCIUM 9.4 mg/dL (8.4-10.5); CARBON DIOXIDE 27 mmol/L (21-33); CHLORIDE 102 mmol/L (98-107); GFR AFRICAN-AMERICAN > 60; GLUCOSE,RANDOM 107 mg/dL (70-110); MAGNESIUM 1.9 mg/dL (1.7-2.2); POTASSIUM 4.1 mmol/L (3.6-5.0); SODIUM 139 mmol/L (132-148); TOTAL PROTEIN 7.3 g/dL (5.8-8.3)
--- NOTE | 2016-10-26 08:38 | PN ---
DATE: 10/26/2016 SUBJECTIVE: The patient appears comfortable at rest. He is not short of breath. PHYSICAL EXAMINATION: VITAL SIGNS: Last temperature recorded 98.4, pulse 82, respirations 18, blood pressure 111/63. Oxygen saturation on nasal cannula is 97-100%. HEENT: Normocephalic, atraumatic. No JVD. CARDIOVASCULAR: Positive S1, S2. No S3 gallop. LUNGS: Decreased breath sounds at the bases. Mild bilateral rhonchi. No wheezing. EXTREMITIES: No clubbing, cyanosis, or edema. Calves are nontender to palpation. GASTROINTESTINAL: Abdomen is soft, nontender, nondistended. Bowel sounds are positive. SKIN: No acute rash. NEUROLOGIC: Limited at the present time. PERTINENT LABORATORY DATA: CAT scan of the chest was done on 10/25/2016 and reviewed. There is a small infiltrate noted at the left lower lobe. The lungs are otherwise clear. There is no lymphadenopathy. IMPRESSION: 1. Chronic obstructive pulmonary disease. 2. Asthma. 3. Acute bronchitis. 4. Left lower lobe pneumonia. PLAN: The patient appears comfortable this morning. He is not short of breath at rest. He states he is feeling much better overall. On physical exam, there is only mild bronchospasm noted. I will continue with the current nebulizer treatments and decrease the intravenous steroids this morning. I will also add inhaled Pulmicort. I did review the CAT scan of the chest. There is a small infiltrate noted at the left lower lobe - consistent with pneumonia. Pancultures have been ordered and will be analyzed when feasible. The patient has been placed on antibiotic therapy - as per infectious disease. Input by Dr. Angel is noted. Clinical status of the patient is improved - compared to the initial presentation. The patient is advised to be out of bed as much as possible. I will discuss the above with Dr. Yin. Jacob Witt MD cc: [id number] TT: 10/26/2016 08:37:43 Confirmation # [id number] Dictation # [id number] geovany MANN
[2016-10-26] MEDS: Potassium Chloride 20 mEq ER Tab PO SCH ×2 (10:20→17:18)
[2016-10-26] MEDS: Magnesium Oxide 400 mg Tab UD PO SCH ×2 (10:20→17:18)
[2016-10-26] MEDS: Enoxaparin 40 mg Syringe SC SCH (10:24)
[2016-10-26] MEDS: Cefepime 1gm in NS 100ml 1 GM/100 ML BAG IVPB SCH (10:25)
--- NOTE | 2016-10-26 13:52 | PN ---
DATE: 10/26/2016 The patient is seen in bed in no acute distress, nontoxic, no fevers and chills. PHYSICAL EXAMINATION: VITAL SIGNS: Temperature is 98, blood pressure is 111/60, respiratory rate of 20, heart rate of 81. HEENT: Unremarkable. NECK: Supple. LUNGS: Have decreased breath sounds. HEART: Normal S1, S2. ABDOMEN: Soft, nontender. LABORATORY DATA: Reveals the patient's white count is down to 11,000, hemoglobin of 12. BUN of 32, creatinine of 1.0. Procalcitonin is less than 0.05. Microbiology reveals the blood cultures are neg ative. Urine cultures are negative. Dr. Witt's note is reviewed. ASSESSMENT AND PLAN: This is a 56-year-old male with asthma, seizures, high cholesterol, gastroesoph ageal reflux disease, chronic obstructive lung disease, alcohol abuse, hypertension, now admitted wit h severe sepsis, left-sided community-acquired pneumonia on doxycycline and cefepime with negative bl ood cultures, negative urine cultures and a negative procalcitonin, white count is resolved, still so mewhat hypoxic. Would complete a short course of antibiotics, on cefepime and doxycycline, today is day #2 of antibiotics. The patient has no known allergies. The patient's EKG shows a QTc of 470, re lative contraindication for use of quinolones. Will follow with you. Santosh Angel MD cc: [id number] TT: 10/26/2016 13:51:46 Confirmation # [id number] Dictation # [id number] cn
--- NOTE | 2016-10-26 14:31 | CARD ---
APPROVED REPORT EKG Measurement Heart [id number] <Conclusion> Normal sinus rhythm with sinus arrhythmia Rightward axis Borderline ECG
--- NOTE | 2016-10-26 16:54 | PN ---
DATE: 10/26/2016 The patient is in room 577, bed 1. Overnight nurse's notes were reviewed. The patient was found to be alert, awake, oriented x 3, resting in bed. The patient was found to be sitting in bed this morning. Also overnight, patient had some wheezing, but patient continued to get treatment. The patient also ambulated today, witnessed by the nurses. PHYSICAL EXAMINATION: VITAL SIGNS: T-max 98.5, heart rate down to 81-97-15-87-89, blood pressure of 111/61, 120/72, 119/59, 128/69, respirations 20, O2 sat was 94%, 97%, 100%, 98% , 96%. Intake/output not documented. HEAD: Normocephalic, atraumatic. HEENT: Shows pink conjunctivae, anicteric sclerae. No oropharyngeal lesion. NECK: No neck rigidity. CHEST: Kyphosis. CARDIOVASCULAR: S1, S2, regular rhythm. LUNGS: Shows decreased breath sounds, occasional rhonchi, no wheezing today. Decreasing crackles left side. ABDOMEN: Soft, positive healed surgical scar of colostomy reversal. GENITALIA: Male. RECTAL: Deferred. EXTREMITIES: Shows positive ARISTIDES stockings. MUSCULOSKELETAL: Shows a body mass index of greater than 22. NEUROLOGIC: Cranial nerves II-XII intact. GAIT: Not tested. PSYCHIATRIC: Negative. VASCULAR: Palpable pulses. DIAGNOSTICS: WBC 11.1 down from 17.3, hemoglobin and hematocrit 12.9 and 38.6, platelets 260, granulocytes 78%. Sodium 139, potassium 4.1, chloride 102, CO2 27, anion gap 14, BUN 32, creatinine 1.0, GFR greater than 60. Lactic acid today is down to 1.4. LFTs are normal. Dilantin level today is 14. Blood and urine cultures negative so far. EKG done today was reviewed, shows sinus rhythm , right axis deviation. IMPRESSION AND PLAN: 1. Severe sepsis with left lower lobe community-acquired pneumonia. 2. Lactic acidosis. 3. Tachycardia 4. Transient hypotension. 5. Transient hypoxemia. 6. Leukocytosis with granulocytosis. 7. Normocytic anemia. 8. Lactic acidosis. 9. Mild rhabdomyolysis with elevated CPK. 10. History of seizure disorder with subtherapeutic Dilantin level. 11. Left lower lobe pneumonia, infiltrate, atelectasis. 12. Right axis deviation. 13. History of alcoholic cardiomyopathy. 14. History of alcohol abuse and nicotine dependence. 15. History of seizure disorder. 16. Hypovitaminosis D. 17. Prostatic hypertrophy. 18. Hypomagnesemia. 19. Hypotension. 20. History of seizure disorder with epileptogenic focus in the right temporal region. 21. History of poor compliance. 22. 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 23. History of former nicotine and alcohol dependence. 1. Acute exacerbation of bronchial asthma versus chronic obstructive pulmonary disease with bronchospasm, wheezing. 2. Possible community-acquired versus healthcare-associated left lower lobe pneumonia and atelectasis. 3. Lactic acidosis. 4. Leukocytosis with granulocytosis. 5. Tachycardia. 6. Questionable systemic inflammatory response syndrome. 7. Right axis deviation. 8. Questionable right ventricular conduction delay versus right bundle branch block. 9. Transient hypotension. 10. Tachycardia. 11. History of seizure disorder with subtherapeutic Dilantin level. 12. History of breakthrough seizures. 13. History of Dilantin toxicity. 14. History of poor compliance. 15. History of alcoholic cardiomyopathy. 16. History of hypotension, history of chronic obstructive pulmonary disease, history of hypovitaminosis D, history of seizure disorder, history of hypokalemia, history of gastroesophageal reflux. PLAN: At this time, patient is seen by infectious disease and pulmonary. The patient is to be continued on therapeutic intervention as follows: The patient has been ordered serial labs. CONSULTATIONS: Cardiology, pulmonary, infectious disease. CURRENT MEDICATIONS: 1. Xopenex and Mucomyst nebulizer treatment every 6 hours. 2. Dilantin 200 mg twice a day. 3. Doxycycline 100 mg IV q. 12. 4. Drisdol 50,000 weekly. 5. Ecotrin 81 mg daily. 6. Flomax 0.4 mg daily. 7. Folic acid 1 mg daily. 8. K-Dur 20 mEq twice a day. 9. Keppra 500 mg twice a day. 10. Lasix 20 mg IV q. 12. 11. Lopressor 25 mg twice a day. 12. Lovenox 40 mg subQ daily. 13. Magnesium oxide 400 mg twice a day. 14. Maxipime 1 gram IV q. 12. 15. ProAmatine 5 mg q. 8. 16. Protonix 40 mg daily. 17. Pulmicort nebulizer 0.5 mg q. 12. 18. Solu-Medrol 30 mg IV q. 12. 19. Tylenol 650 q. 4 p.r.n. 20. Xopenex nebulizer with Mucomyst nebulizer. Repeat EKG ordered. Echo with Doppler pending. Heart healthy diet, out of bed to chair, ARISTIDES stockings, SCDs. The patient will be ordered lipid panel, thyroid panel, vitamin D. The patient will be referred for TCU evaluation. At present, patient will be continued on the above therapeutic intervention as dictated above with close pulmonary, cardiology, infectious disease followup. The patient was advised strict compliance. Dictated and electronically signed, not read. Trevor Yin MD cc: [id number] TT: 10/26/2016 16:54:43 Confirmation # [id number] Dictation # [id number] en MTDD
[2016-10-26 17:13] LABS: CHOLESTEROL 178 mg/dL (130-200)
[2016-10-26 17:33] LABS: FREE T4 0.77 ng/dL (0.78-2.19); T4 5.2 ug/dL (5.5-11.0)
[2016-10-26 17:55] LABS: THYROID STIMULATING HORMONE 0.89 mIU/mL (0.46-4.68)
[2016-10-27] MEDS: Levalbuterol 0.63 MG/3 ML Inhal Soln UD IH SCH ×4 (04:44→19:44)
[2016-10-27] MEDS: Acetylcysteine 20% Inhal Soln (4ml) IH SCH ×4 (04:44→19:44)
[2016-10-27] MEDS: Pantoprazole 40 mg EC Tab PO SCH (06:30)
[2016-10-27 07:20] LABS: ADD MANUAL DIFF? NO
[2016-10-27 07:31] LABS: BASO # 0.02 K/mm3 (0.0-2.0); BASO % 0.2 % (0.0-3.0); EOS # 0.1 (0.0-0.7); EOS % 0.5 % (1.5-5.0); GRAN # 7.07 (1.4-6.5); GRAN % 62.7 % (50.0-68.0); HEMATOCRIT 37.5 % (42.0-52.0); LYMPH # 3.2 (1.2-3.4); LYMPH % 28.3 % (22.0-35.0); MEAN CELL VOLUME 91.5 fL (80.0-105.0); MEAN CORPUSCULAR HGB CONC 33.9 g/dl (31.0-37.0); MEAN PLATELET VOLUME 10.4 fl (7.0-11.0); MONO # 0.9 (0.1-0.6); MONO % 8.3 % (1.0-6.0); PLATELET COUNT 242 10^3/uL (120.0-450.0); RED CELL DISTRIBUTION WIDTH 13.7 % (11.5-14.5); WHITE BLOOD COUNT 11.3 10^3/ul (4.5-11.0)
[2016-10-27 07:52] LABS: ALB/GLOB RATIO 1.4 (1.1-1.8); ALKALINE PHOSPHATASE 106 U/L (38-133); ALT/SGPT 36 U/L (7-56); AST/SGOT 27 U/L (15-59); BILIRUBIN,DIRECT 0.4 mg/dL (0.0-0.4); BILIRUBIN,TOTAL 0.4 mg/dL (0.2-1.3); BLOOD UREA NITROGEN 35 mg/dL (7-21); CARBON DIOXIDE 27 mmol/L (21-33); CHLORIDE 101 mmol/L (98-107); GFR AFRICAN-AMERICAN > 60; GLUCOSE,RANDOM 117 mg/dL (70-110); POTASSIUM 3.8 mmol/L (3.6-5.0); SODIUM 140 mmol/L (132-148)
--- NOTE | 2016-10-27 07:58 | PN ---
DATE: 10/27/2016 SUBJECTIVE: The patient appears comfortable this morning. He is not short of breath at rest. PHYSICAL EXAMINATION: VITAL SIGNS: Temperature is 98.4, pulse 82, respirations 18, blood pressure 115 /75. Oxygen saturation on nasal cannula is 96%. HEENT: Normocephalic, atraumatic. No JVD. CARDIOVASCULAR: Positive S1, S2. No S3. LUNGS: Decreased breath sounds at the bases. Less rhonchi. No wheezing. EXTREMITIES: No clubbing, cyanosis, or edema. Calves are nontender to palpation. GASTROINTESTINAL: Abdomen is soft, nontender, nondistended. Bowel sounds are positive. SKIN: No acute rash. NEUROLOGIC: Limited at the present time. IMPRESSION: 1. Chronic obstructive pulmonary disease. 2. Asthma. 3. Acute bronchitis. 4. Left lower lobe pneumonia. PLAN: The patient appears comfortable this morning. He is not short of breath at rest. He does state to feeling much better overall. On physical exam, there is less bronchospasm noted. I will continue with the current nebulizer treatments and current intravenous steroids (decreased yesterday) for now. The patient remains on antibiotic therapy -- as per infectious disease. Input by Dr. Angel is noted. There are no temperatures noted. The leukocytosis has almost completely resolved. Clinical status of the patient is significantly improved -- compared to the initial presentation. I will discuss the above with Dr. Yin. Jacob Witt MD cc: [id number] TT: 10/27/2016 07:57:32 Confirmation # [id number] Dictation # [id number] en MTDD
[2016-10-27] MEDS: Potassium Chloride 20 mEq ER Tab PO SCH (08:05)
[2016-10-27] MEDS: Budesonide 0.5 mg/2 ml Inhal Susp UD IH SCH ×2 (08:38→19:44)
[2016-10-27] MEDS: Cefepime 1gm in NS 100ml 1 GM/100 ML BAG IVPB SCH ×2 (10:21→21:31)
[2016-10-27] MEDS: MethylPREDNISolone 40 mg Vial IVP SCH ×2 (10:22→21:32)
[2016-10-27] MEDS: Enoxaparin 40 mg Syringe SC SCH (10:23)
[2016-10-27] MEDS: Magnesium Oxide 400 mg Tab UD PO SCH ×2 (10:24→17:11)
--- NOTE | 2016-10-27 11:16 | PN ---
DATE: 10/27/2016 The patient is seen in room 577, bed 1. The patient is seen lying in the bed. The patient is alert, awake, oriented x 3. The patient denies any shortness of breath, denies wheezing. Denies coughing. The patient slept well overnight. The patient was ambulatory. PHYSICAL EXAMINATION: VITAL SIGNS: T-max 98, heart rate 84, blood pressure 120/80, 123/84, 115/75, respirations 16, O2 sat 98%. HEAD: Normocephalic, atraumatic. HEENT: Shows pink conjunctivae, anicteric sclerae. No oropharyngeal lesion. NECK: No neck rigidity. CHEST: Kyphosis. LUNGS: Show no wheezing. Occasional rhonchi. No crackles, rales, or crepitations. CARDIOVASCULAR: Shows S1, S2, regular rhythm. ABDOMEN: Soft. Positive healed surgical scar of the reversal of colostomy. GENITALIA: Male. RECTAL: Deferred. EXTREMITIES: Show positive ARISTIDES stockings. MUSCULOSKELETAL: Shows a body mass index of 22. NEUROLOGIC: Cranial nerves II-XII intact. Gait examination is independent as per the nurses' notes. VASCULAR: Palpable pulses. PSYCHIATRIC: Negative. DIAGNOSTICS: 10/27, WBC 7.3, hemoglobin and hematocrit 12.7 and 37.5, platelet 242. Sodium 140, potassium 3.8, chloride 101, CO2 27, anion gap 16, BUN 35, creatinine 1.0, GFR greater than 60, glucose 117. Lactic acid 1.1, calcium 9.0 , magnesium 2.0. LFTs are normal. ProBNP is 67.2. Vitamin D25 hydroxy 50. Cholesterol 178, LDL 72, HDL 86. Dilantin level today is 13 which is within normal limits. Urine and blood cultures negative. EKG from today shows sinus rhythm, right axis deviation. Q-wave in III and aVF. The patient seen by lead accountant, Dr. Witt. IMPRESSION AND PLAN: 1. Severe sepsis with left lower lobe community-acquired pneumonia. 2. Acute exacerbation of bronchial asthma and chronic obstructive pulmonary disease with bronchospasm and wheezing. 3. Leukocytosis with granulocytosis. 4. Normocytic anemia. 5. 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 6. History of seizure disorder, history of poor compliance. 7. History of pulmonary arterial hypertension with elevated right ventricular systolic pressure of 63 mmHg. 8. Mild prerenal kidney injury. 9. Lactic acidosis. 10. Mild rhabdomyolysis with elevated CPK. 11. History of seizure disorder with poor compliance and subtherapeutic Dilantin level. 12. History of alcohol and nicotine dependence. 13. History of hypokalemia. 14. History of hypotension. 1. Severe sepsis with left lower lobe community-acquired pneumonia. 2. Lactic acidosis. 3. Tachycardia 4. Transient hypotension. 5. Transient hypoxemia. 6. Leukocytosis with granulocytosis. 7. Normocytic anemia. 8. Lactic acidosis. 9. Mild rhabdomyolysis with elevated CPK. 10. History of seizure disorder with subtherapeutic Dilantin level. 11. Left lower lobe pneumonia, infiltrate, atelectasis. 12. Right axis deviation. 13. History of alcoholic cardiomyopathy. 14. History of alcohol abuse and nicotine dependence. 15. History of seizure disorder. 16. Hypovitaminosis D. 17. Prostatic hypertrophy. 18. Hypomagnesemia. 19. Hypotension. 20. History of seizure disorder with epileptogenic focus in the right temporal region. 21. History of poor compliance. 22. 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 23. History of former nicotine and alcohol dependence. 1. Acute exacerbation of bronchial asthma versus chronic obstructive pulmonary disease with bronchospasm, wheezing. 2. Possible community-acquired versus healthcare-associated left lower lobe pneumonia and atelectasis. 3. Lactic acidosis. 4. Leukocytosis with granulocytosis. 5. Tachycardia. 6. Questionable systemic inflammatory response syndrome. 7. Right axis deviation. 8. Questionable right ventricular conduction delay versus right bundle branch block. 9. Transient hypotension. 10. Tachycardia. 11. History of seizure disorder with subtherapeutic Dilantin level. 12. History of breakthrough seizures. 13. History of Dilantin toxicity. 14. History of poor compliance. 15. History of alcoholic cardiomyopathy. 16. History of hypotension, history of chronic obstructive pulmonary disease, history of hypovitaminosis D, history of seizure disorder, history of hypokalemia, history of gastroesophageal reflux. PLAN: At this time, patient has been ordered serial labs. The patient is currently on consult with cardiology, infectious disease, pulmonary. The patient was referred to TCU. CURRENT MEDICATIONS: 1. Mucomyst and Xopenex nebulizer treatment every 6 hours. 2. Dilantin 200 twice a day. 3. Doxycycline 100 mg IV q. 12. 4. Drisdol 50,000 weekly. 5. Aspirin 81 mg daily. 6. Flomax 0.4 mg daily. 7. Folic acid 1 mg daily. 8. The patient's potassium and Lasix are stopped because of prerenal kidney injury with elevated BUN from 19-35. The patient's Lasix and potassium are discontinued at present. 9. The patient is on Keppra 500 twice a day. 10. Lopressor 25 twice a day. 11. Lovenox 40 mg subQ daily. 12. Magnesium oxide 400 mg twice a day. 13. Maxipime 1 gram IV q. 12. 14. ProAmatine 5 mg q. 8. 15. Protonix 40 mg daily. 17. Pulmicort nebulizer 0.5 mg twice a day. 18. The patient's Solu-Medrol is to be kept at 30 mg IV q. 12 hours as per pulmonary recommendation. The patient is on chest PT, incentive spirometer. The patient is awaiting echo with Doppler. The patient has been ordered out of bed, ARISTIDES stockings, SCDs, physical therapy. At present, the patient will be continued on the IV antibiotics as per infectious disease recommendation. We are awaiting recommendations from TCU evaluation. Dictated and electronically signed, not read. Trevor Yin MD cc: [id number] TT: 10/27/2016 11:15:19 Confirmation # [id number] Dictation # [id number] valeri MANN
--- NOTE | 2016-10-27 13:47 | CP.PCM.PN ---
Subjective - Date & Time of Evaluation Date of Evaluation: 10/27/16 Time of Evaluation: 11:50 - Subjective Subjective: Comfortable, not dyspneic at rest, no fevers overnight. Objective - Vital Signs/Intake and Output Vital Signs (last 24 hours): Temp Pulse Resp BP Pulse Ox 98 F 84 16 123/84 98 10/27/16 08:00 10/27/16 08:06 10/27/16 08:00 10/27/16 08:06 10/27/16 08:00 Intake and Output: 10/27/16 10/27/16 06:59 18:59 Intake Total 960 Balance 960 - Medications Medications: Current Medications Acetaminophen (Tylenol 325mg Tab) 650 mg PO Q4H PRN PRN Reason: Fever >100.5 F Last Admin: 10/25/16 03:51 Dose: 650 mg Acetylcysteine (Acetylcysteine 20%) 4 ml IH [id number] [facility] Last Admin: 10/27/16 08:38 Dose: 4 ml Albuterol/Ipratropium (Duoneb 3 Mg/0.5 Mg (3 Ml) Ud) 3 ml IH Q4H PRN PRN Reason: Wheezing Last Admin: 10/25/16 08:48 Dose: 3 ml Aspirin (Ecotrin) 81 mg PO DAILY [facility] Last Admin: 10/26/16 10:21 Dose: 81 mg Budesonide (Pulmicort Respules) 0.5 mg IH [id number] [facility] Last Admin: 10/27/16 08:38 Dose: 0.5 mg Enoxaparin Sodium (Lovenox) 40 mg SC DAILY [facility] PRN Reason: Protocol Last Admin: 10/26/16 10:24 Dose: 40 mg Ergocalciferol (Drisdol 50,000 Intl Units Cap) 1 cap PO WED [facility] Folic Acid (Folic Acid) 1 mg PO DAILY [facility] Last Admin: 10/26/16 10:20 Dose: 1 mg Furosemide (Lasix) 20 mg IVP Q12 [facility] Last Admin: 10/26/16 21:24 Dose: 20 mg Doxycycline Hyclate 100 mg/ (Sodium Chloride) 100 mls @ 100 mls/hr IVPB Q12 [facility] PRN Reason: Protocol Last Admin: 10/26/16 21:26 Dose: 100 mls/hr Cefepime HCl (Maxipime 1gm) 1 gm in 100 mls @ 100 mls/hr IVPB Q12 [facility] PRN Reason: Protocol Last Admin: 10/26/16 10:25 Dose: 100 mls/hr Levalbuterol HCl (Xopenex) 0.63 mg IH [id number] [facility] Last Admin: 10/27/16 08:39 Dose: 0.63 mg Levetiracetam (Keppra) 500 mg PO BID [facility] Last Admin: 10/26/16 17:18 Dose: 500 mg Magnesium Oxide (Mag-Ox) 400 mg PO BID [facility] Last Admin: 10/26/16 17:18 Dose: 400 mg Methylprednisolone (Solu-Medrol) 30 mg IVP Q12 [facility] Last Admin: 10/26/16 21:23 Dose: 30 mg Metoprolol Tartrate (Lopressor) 25 mg PO BRKDIN [facility] Last Admin: 10/27/16 08:06 Dose: 25 mg Midodrine (Proamatine) 5 mg PO Q8 [facility] Last Admin: 10/27/16 07:58 Dose: 5 mg Pantoprazole Sodium (Protonix Ec Tab) 40 mg PO 0630 [facility] Last Admin: 10/27/16 06:30 Dose: 40 mg Phenytoin Sodium (Dilantin) 200 mg PO Q12 [facility] Last Admin: 10/26/16 21:23 Dose: 200 mg Potassium Chloride (K-Dur 20 Meq Er Tab) 20 meq PO ACBD [facility] Last Admin: 10/27/16 08:05 Dose: 20 meq Tamsulosin HCl (Flomax) 0.4 mg PO DAILY [facility] Last Admin: 10/26/16 10:21 Dose: 0.4 mg - Labs Labs: 10/27/16 07:00 10/27/16 07:00 PT 10.5 Seconds (9.9-11.8) 10/25/16 03:00 INR 0.97 (0.93-1.08) 10/25/16 03:00 APTT 25.2 Seconds (23.7-30.8) 10/25/16 03:00 - Constitutional Appears: Non-toxic, No Acute Distress - Head Exam Head Exam: NORMAL INSPECTION - ENT Exam ENT Exam: Mucous Membranes Moist - Neck Exam Neck Exam: absent: Lymphadenopathy, Meningismus - Respiratory Exam Respiratory Exam: Decreased Breath Sounds - Cardiovascular Exam Cardiovascular Exam: +S1, +S2 - GI/Abdominal Exam GI & Abdominal Exam: Soft. 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
[2016-10-27 16:49] VITALS: RESP 20
[2016-10-28] MEDS: Levalbuterol 0.63 MG/3 ML Inhal Soln UD IH SCH ×4 (01:14→19:57)
[2016-10-28] MEDS: Acetylcysteine 20% Inhal Soln (4ml) IH SCH ×4 (01:14→19:57)
--- NOTE | 2016-10-28 01:40 | CARD ---
APPROVED REPORT EKG Measurement Heart [id number] <Conclusion> Normal sinus rhythm Cannot rule out Inferior infarct, age undetermined Abnormal ECG
[2016-10-28] MEDS: Pantoprazole 40 mg EC Tab PO SCH (06:08)
[2016-10-28] MEDS: Budesonide 0.5 mg/2 ml Inhal Susp UD IH SCH ×2 (07:18→19:57)
[2016-10-28 07:29] LABS: ADD MANUAL DIFF? NO
[2016-10-28 07:35] LABS: BASO # 0.04 K/mm3 (0.0-2.0); BASO % 0.4 % (0.0-3.0); EOS # 0.1 (0.0-0.7); EOS % 0.6 % (1.5-5.0); GRAN # 6.51 (1.4-6.5); GRAN % 59.7 % (50.0-68.0); HEMATOCRIT 39.5 % (42.0-52.0); LYMPH # 3.4 (1.2-3.4); MEAN CELL VOLUME 91.6 fL (80.0-105.0); MEAN CORPUSCULAR HEMOGLOBIN 31.1 pg (25.0-35.0); MEAN CORPUSCULAR HGB CONC 33.9 g/dl (31.0-37.0); MEAN PLATELET VOLUME 10.5 fl (7.0-11.0); MONO # 0.9 (0.1-0.6); MONO % 8.3 % (1.0-6.0); PLATELET COUNT 251 10^3/uL (120.0-450.0); RED CELL DISTRIBUTION WIDTH 13.6 % (11.5-14.5); WHITE BLOOD COUNT 10.9 10^3/ul (4.5-11.0)
[2016-10-28 07:44] LABS: ALB/GLOB RATIO 1.5 (1.1-1.8); ALKALINE PHOSPHATASE 105 U/L (38-133); ALT/SGPT 34 U/L (7-56); AST/SGOT 25 U/L (15-59); BILIRUBIN,DIRECT 0.3 mg/dL (0.0-0.4); BILIRUBIN,TOTAL 0.3 mg/dL (0.2-1.3); BLOOD UREA NITROGEN 39 mg/dL (7-21); CALCIUM 9.2 mg/dL (8.4-10.5); CARBON DIOXIDE 25 mmol/L (21-33); CHLORIDE 102 mmol/L (95-110); GFR AFRICAN-AMERICAN > 60; GLUCOSE,RANDOM 88 mg/dL (70-110); MAGNESIUM 2.1 mg/dL (1.7-2.2); POTASSIUM 3.9 mmol/L (3.6-5.0); SODIUM 138 mmol/L (132-148); TOTAL PROTEIN 7.1 g/dL (5.8-8.3)
--- NOTE | 2016-10-28 08:32 | PN ---
DATE: 10/28/2016 SUBJECTIVE: The patient appears very comfortable this morning. He is not short of breath at rest. PHYSICAL EXAMINATION: VITAL SIGNS (last noted in the computer): Temperature is 98.2, pulse 78, respirations 18/20, blood pressure 123/88. Oxygen saturation on room air ranges between 94%-98%. HEENT: Normocephalic, atraumatic. No JVD. CARDIOVASCULAR: Positive S1, S2. No S3. LUNGS: Improved breath sounds at the bases. Much less/minimal rhonchi. No wheezing. EXTREMITIES: No clubbing, cyanosis, or edema. Calves are nontender to palpation. GASTROINTESTINAL: Abdomen is soft, nontender, nondistended. Bowel sounds are positive. SKIN: No acute rash. NEUROLOGIC: Limited at the present time. IMPRESSION: 1. Chronic obstructive pulmonary disease. 2. Asthma. 3. Acute bronchitis. 4. Left lower lobe pneumonia. PLAN: The patient appears very comfortable this morning. He is not short of breath at rest. He does state to feeling much better overall. On physical exam , his bronchospasm continues to resolve. In addition, the alveolar-arterial gradient also continues to resolve. I will continue with the current nebulizer treatments and change to oral steroids this morning. The patient remains on antibiotic therapy -- as per infectious disease. There are no temperatures noted. His leukocytosis has completely resolved. Clinical status of the patient is significantly improved -- compared to the initial presentation. The patient is reminded to be out of bed as much as possible. I will discuss the above with Dr. Yin. Jacob Witt MD cc: [id number] TT: 10/28/2016 08:32:07 Confirmation # [id number] Dictation # [id number] en MTDD
[2016-10-28] MEDS ORDERED: Ergocalciferol 50,000 Intl Units Cap PO SCH (10:00)
[2016-10-28] MEDS: Magnesium Oxide 400 mg Tab UD PO SCH ×2 (10:14→17:08)
[2016-10-28] MEDS: Enoxaparin 40 mg Syringe SC SCH (10:15)
[2016-10-28] MEDS: Cefepime 1gm in NS 100ml 1 GM/100 ML BAG IVPB SCH ×2 (10:15→21:59)
--- NOTE | 2016-10-28 14:39 | PN ---
DATE: 10/28/2016 The patient is seen in room 577, bed 1 with patient's next of kin, Sheridan, at bedside. The patient is alert, awake, responsive. The patient does not appear to be in any respiratory distress. The patient denies any nausea, vomiting, diarrhea or wheezing. The patient was evaluated by TCU. The patient was not found to be eligible for TCU due to insurance issues. Overnight nurse's notes were reviewed. PHYSICAL EXAMINATION: VITAL SIGNS: T-max 98.2, pulse 78-85; blood pressure 108/65, 123/88; respirations 20, O2 sat 94-96-98%. HEAD: Normocephalic, atraumatic. HEENT: Shows pink conjunctivae, anicteric sclerae. No oropharyngeal lesion. NECK: No neck rigidity. CHEST: Kyphosis. LUNGS: Show no rales, crackles, or wheezing. Very occasional rhonchi anterior lung dimas, upper lung dimas. CARDIOVASCULAR: S1, S2, regular rhythm. ABDOMEN: Soft, slightly protuberant with positive surgical scar of abdominal surgery. GENITALIA: Male. RECTAL: Deferred. EXTREMITIES: Shows no pitting edema, no calf tenderness, no Homans' sign. NEUROLOGIC: The patient is alert, awake, oriented x 3. Cranial nerves II-XII intact. GAIT: Independent. VASCULAR: Palpable pulses. PSYCHIATRIC: Negative for anxiety, depression. Negative for suicidal or homicidal ideation. Negative for auditory or visual hallucinations. DIAGNOSTICS: 10/28/2016: WBC 10.9, hemoglobin and hematocrit are 13.4 and 39.5 , platelet 251. Sodium 138, potassium 3.9, chloride 102, CO2 of 25, anion gap 15, BUN 39, creatinine 0.9, GFR greater than 60, glucose 88. Lactic acid is down to 0.8 from 3.9. LFTs are normal. Magnesium is normal. BNP is normal. Dilantin level is 10 today. The patient is seen by pulmonary. Recommendations noted. IMPRESSION: 1. Sepsis due to left-sided community-acquired pneumonia. 2. History of seizure disorder. 3. Hypoxemia. 4. History of nicotine and alcohol dependence. 5. Leukocytosis with granulocytosis. 6. Normocytic anemia. 7. Mild prerenal kidney injury. 8. Lactic acidosis. 9. Mild rhabdomyolysis with elevated CPK. 10. History of hypovitaminosis D. 11. History of seizure disorder with subtherapeutic Dilantin level. 12. Acute exacerbation of chronic obstructive pulmonary disease and bronchial asthma. 1. Severe sepsis with left lower lobe community-acquired pneumonia. 2. Acute exacerbation of bronchial asthma and chronic obstructive pulmonary disease with bronchospasm and wheezing. 3. Leukocytosis with granulocytosis. 4. Normocytic anemia. 5. 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 6. History of seizure disorder, history of poor compliance. 7. History of pulmonary arterial hypertension with elevated right ventricular systolic pressure of 63 mmHg. 8. Mild prerenal kidney injury. 9. Lactic acidosis. 10. Mild rhabdomyolysis with elevated CPK. 11. History of seizure disorder with poor compliance and subtherapeutic Dilantin level. 12. History of alcohol and nicotine dependence. 13. History of hypokalemia. 14. History of hypotension. 1. Severe sepsis with left lower lobe community-acquired pneumonia. 2. Lactic acidosis. 3. Tachycardia 4. Transient hypotension. 5. Transient hypoxemia. 6. Leukocytosis with granulocytosis. 7. Normocytic anemia. 8. Lactic acidosis. 9. Mild rhabdomyolysis with elevated CPK. 10. History of seizure disorder with subtherapeutic Dilantin level. 11. Left lower lobe pneumonia, infiltrate, atelectasis. 12. Right axis deviation. 13. History of alcoholic cardiomyopathy. 14. History of alcohol abuse and nicotine dependence. 15. History of seizure disorder. 16. Hypovitaminosis D. 17. Prostatic hypertrophy. 18. Hypomagnesemia. 19. Hypotension. 20. History of seizure disorder with epileptogenic focus in the right temporal region. 21. History of poor compliance. 22. 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 23. History of former nicotine and alcohol dependence. 1. Acute exacerbation of bronchial asthma versus chronic obstructive pulmonary disease with bronchospasm, wheezing. 2. Possible community-acquired versus healthcare-associated left lower lobe pneumonia and atelectasis. 3. Lactic acidosis. 4. Leukocytosis with granulocytosis. 5. Tachycardia. 6. Questionable systemic inflammatory response syndrome. 7. Right axis deviation. 8. Questionable right ventricular conduction delay versus right bundle branch block. 9. Transient hypotension. 10. Tachycardia. 11. History of seizure disorder with subtherapeutic Dilantin level. 12. History of breakthrough seizures. 13. History of Dilantin toxicity. 14. History of poor compliance. 15. History of alcoholic cardiomyopathy. 16. History of hypotension, history of chronic obstructive pulmonary disease, history of hypovitaminosis D, history of seizure disorder, history of hypokalemia, history of gastroesophageal reflux. PLAN: At this time, the patient is declined by TCU. The patient has been ordered serial labs. CURRENT CONSULTATION: Pulmonary and infectious disease. The patient not seen by cardiology yet. CURRENT MEDICATIONS: 1. Mucomyst 20% 4 mL nebulizer with Xopenex 0.63 mg nebulizer every 6 hours. 2. Dilantin 200 mg p.o. q. 12. 3. Vibramycin 100 mg IV q. 12. 4. Drisdol 50,000 weekly. 5. Ecotrin 81 mg daily. 6. Flomax 0.4 mg daily. 7. Folic acid 1 mg daily. 8. Keppra 500 mg twice a day. 9. Lopressor 25 mg twice a day. 10. Lovenox 40 mg subQ daily. 11. Magnesium oxide 400 mg twice a day. 12. Maxipime 1 gram IV q. 12. 13. The patient's IV steroids are switched to prednisone 40 mg daily. 14. ProAmatine 5 mg q. 8 hours. 15. Protonix 40 mg daily. 16. Pulmicort nebulizer 0.5 mg q. 12 hours. 17. Tylenol 650 q. 4 p.r.n. Chest PT, incentive spirometry. The patient's echo with Doppler is pending. The patient has been ordered out of bed, ARISTIDES yun, SCDs. Infectious disease recommendations noted. The patient is to continue on IV cefepime and doxycycline for a total of 5-7 days; today is day #4. If patient continues to improve, we will await further recommendations by infectious disease regarding the discontinuation of the IV antibiotics. The patient's echocardiogram will be reviewed when the results are available. The patient has been updated about his condition, diagnoses, test results and recommendation by all physicians involved in the care of the patient, and all the questions and concerns answered , which he acknowledged and understands. Dictated and electronically signed; not read. Trevor Yin MD cc: [id number] TT: 10/28/2016 14:38:58 Confirmation # [id number] Dictation # [id number] mn [email or web address]
--- NOTE | 2016-10-28 18:31 | CON ---
DATE: 10/28/2016 HISTORY OF PRESENT ILLNESS: The patient is a 56-year-old male who presented with dyspnea. No chest pain noted. PAST MEDICAL HISTORY: Notable for dilated cardiomyopathy in the past. He underwent a cardiac cathet erization in April of this past year, which no critical coronary lesions were noted. The ejection fraction was 30%. The patient has a past medical history of heavy drinking as well as smoking, which he has stopped sin ce his catheterization in April. He is currently feeling better. His breathing has improved. Denies chest pain. SOCIAL HISTORY: He is a former smoker. REVIEW OF SYSTEMS: A 14-point review of systems was reviewed. No acute symptoms are noted. PHYSICAL EXAMINATION: VITAL SIGNS: Blood pressure is 108/65, heart rate is in the 80s. NECK: Negative JVD. LUNGS: Without rales. HEART: Reveals S1, S2. EXTREMITIES: Without edema. LABORATORIES: Hemoglobin is 13.4, BUN and creatinine are unremarkable. Troponins are negative x 4. IMPRESSION: 1. Dilated cardiomyopathy. 2. Probable chronic obstructive pulmonary disease. 3. Nonobstructive coronary artery disease. 4. History of alcohol abuse which he has stopped since April. PLAN: Given these findings, the patient's cardiac status is stable. No evidence for acute coronary syndrome. Will check his echocardiogram to evaluate his LV function. Balaji López MD cc: [id number] TT: 10/28/2016 18:29:54 Confirmation # [id number] Dictation # [id number] samanta
--- NOTE | 2016-10-28 18:45 | CP.PCM.PN ---
Subjective - Date & Time of Evaluation Date of Evaluation: 10/28/16 Time of Evaluation: 10:40 - Subjective Subjective: Breathing better, no fevers overnight, able to walk around the floor without getting dyspneic. Objective - Vital Signs/Intake and Output Vital Signs (last 24 hours): Temp Pulse Resp BP Pulse Ox 97.9 F 85 20 108/65 94 L 10/28/16 08:25 10/28/16 08:42 10/28/16 08:25 10/28/16 08:42 10/28/16 08:25 Intake and Output: 10/28/16 10/28/16 06:59 18:59 Intake Total 780 Balance 780 - Medications Medications: Current Medications Acetaminophen (Tylenol 325mg Tab) 650 mg PO Q4H PRN PRN Reason: Fever >100.5 F Last Admin: 10/25/16 03:51 Dose: 650 mg Acetylcysteine (Acetylcysteine 20%) 4 ml IH [id number] [facility] Last Admin: 10/28/16 07:18 Dose: 4 ml Albuterol/Ipratropium (Duoneb 3 Mg/0.5 Mg (3 Ml) Ud) 3 ml IH Q4H PRN PRN Reason: Wheezing Last Admin: 10/25/16 08:48 Dose: 3 ml Aspirin (Ecotrin) 81 mg PO DAILY [facility] Last Admin: 10/27/16 10:24 Dose: 81 mg Budesonide (Pulmicort Respules) 0.5 mg IH [id number] [facility] Last Admin: 10/28/16 07:18 Dose: 0.5 mg Enoxaparin Sodium (Lovenox) 40 mg SC DAILY [facility] PRN Reason: Protocol Last Admin: 10/27/16 10:23 Dose: 40 mg Ergocalciferol (Drisdol 50,000 Intl Units Cap) 1 cap PO WED [facility] Folic Acid (Folic Acid) 1 mg PO DAILY [facility] Last Admin: 10/27/16 10:24 Dose: 1 mg Doxycycline Hyclate 100 mg/ (Sodium Chloride) 100 mls @ 100 mls/hr IVPB Q12 [facility] PRN Reason: Protocol Last Admin: 10/27/16 22:46 Dose: 100 mls/hr Cefepime HCl (Maxipime 1gm) 1 gm in 100 mls @ 100 mls/hr IVPB Q12 [facility] PRN Reason: Protocol Last Admin: 10/27/16 21:31 Dose: 100 mls/hr Levalbuterol HCl (Xopenex) 0.63 mg IH [id number] [facility] Last Admin: 10/28/16 07:17 Dose: 0.63 mg Levetiracetam (Keppra) 500 mg PO BID [facility] Last Admin: 10/27/16 17:10 Dose: 500 mg Magnesium Oxide (Mag-Ox) 400 mg PO BID [facility] Last Admin: 10/27/16 17:11 Dose: 400 mg Metoprolol Tartrate (Lopressor) 25 mg PO BRKDIN [facility] Last Admin: 10/28/16 08:42 Dose: 25 mg Midodrine (Proamatine) 5 mg PO Q8 [facility] Last Admin: 10/28/16 06:08 Dose: 5 mg Pantoprazole Sodium (Protonix Ec Tab) 40 mg PO 0630 [facility] Last Admin: 10/28/16 06:08 Dose: 40 mg Phenytoin Sodium (Dilantin) 200 mg PO Q12 [facility] Last Admin: 10/27/16 21:31 Dose: 200 mg Prednisone (Prednisone Tab) 40 mg PO DAILY [facility] Tamsulosin HCl (Flomax) 0.4 mg PO DAILY [facility] Last Admin: 10/27/16 10:24 Dose: 0.4 mg - Labs Labs: 10/28/16 07:10 10/28/16 07:10 PT 10.5 Seconds (9.9-11.8) 10/25/16 03:00 INR 0.97 (0.93-1.08) 10/25/16 03:00 APTT 25.2 Seconds (23.7-30.8) 10/25/16 03:00 - Constitutional Appears: Non-toxic, No Acute Distress - Head Exam Head Exam: NORMAL INSPECTION - ENT Exam ENT Exam: Mucous Membranes Moist - Neck Exam Neck Exam: absent: Lymphadenopathy, Meningismus - Respiratory Exam Respiratory Exam: Decreased Breath Sounds - Cardiovascular Exam Cardiovascular Exam: +S1, +S2 - GI/Abdominal Exam GI & Abdominal Exam: Soft. 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
--- NOTE | 2016-10-28 20:13 | CARD ---
APPROVED REPORT EXAM: Two-dimensional and M-mode echocardiogram with Doppler and color Doppler. INDICATION Cardiomyopathy 2D DIMENSIONS IVSd0.9 (0.7-1.1cm)LVDd4.7 (3.9-5.9cm) PWd1.0 (0.7-1.1cm)LVDs3.2 (2.5-4.0cm) FS (%) 33.4 %LVEF (%)50.0 (>50%) M-Mode DIMENSIONS Aortic Root2.90 (2.2-3.7cm)Aortic Cusp Exc.1.70 (1.5-2.0cm) Aortic Valve AoV Peak Zzzxkfbm606.0cm/Kira Peak GR.7mmHg Mitral Valve MV E Hvjdarqr30.0cm/sMV A Yfisxvrd92.4cm/sE/A ratio1.2 TDI Lateral E' Peak V13.60cm/sMedial E' Peak V10.30cm/sE/Lateral E'6.3 E/Medial E'8.3 Pulmonary Valve PV Peak Zkpstkzs096.0cm/sPV Peak Grad.4mmHg Tricuspid Valve TR Peak Xyziplgx772mr/sRAP CHPLRYWV77phQtKJ Peak Gr.40mmHg [id number] LEFT VENTRICLE The left ventricle is normal size. There is normal left ventricular wall thickness. Left ventricle systolic function is borderline. There is normal LV segmental wall motion. RIGHT VENTRICLE The right ventricle is moderately dilated. RV Systolic function is moderately reduced. ATRIA The left atrium size is normal. The right atrium is mildly dilated. AORTIC VALVE The aortic valve is not well visualized. MITRAL VALVE The mitral valve is normal in structure. TRICUSPID VALVE There is moderate pulmonary hypertension. GREAT VESSELS The aortic root is normal in size. PERICARDIAL EFFUSION There is a trace loculated anterior pericardial effusion. <Conclusion> The left ventricle is normal size. There is normal left ventricular wall thickness. Left ventricle systolic function is borderline. The right ventricle is moderately dilated. RV Systolic function is moderately reduced. There is moderate pulmonary hypertension.
[2016-10-29] MEDS: Acetylcysteine 20% Inhal Soln (4ml) IH SCH ×4 (01:48→20:06)
[2016-10-29] MEDS: Levalbuterol 0.63 MG/3 ML Inhal Soln UD IH SCH ×4 (01:48→20:05)
[2016-10-29] MEDS: Pantoprazole 40 mg EC Tab PO SCH (05:45)
[2016-10-29 07:23] LABS: ADD MANUAL DIFF? NO
--- NOTE | 2016-10-29 07:28 | PN ---
DATE: 10/29/2016 SUBJECTIVE: The patient appears very comfortable this morning. He is not short of breath at rest. PHYSICAL EXAMINATION: VITAL SIGNS: Temperature is 98.2, pulse 92, respirations 18, blood pressure 126 /82. Oxygen saturation on room air is 98%. HEENT: Normocephalic, atraumatic. No JVD. CARDIOVASCULAR: Positive S1, S2. No S3. LUNGS: Very minimal/less rhonchi. No wheezing. EXTREMITIES: No clubbing, cyanosis, or edema. Calves are nontender to palpation. GASTROINTESTINAL: Abdomen is soft, nontender, nondistended. Bowel sounds are positive. SKIN: No acute rash. NEUROLOGIC: Limited at the present time. IMPRESSION: 1. Chronic obstructive pulmonary disease. 2. Asthma. 3. Acute bronchitis. 4. Left lower lobe pneumonia. PLAN: The patient appears very comfortable this morning. He is not short of breath at rest. He is not short of breath on exertion. He states he is feeling much, much better overall. On physical exam, his bronchospasm continues to resolve. In addition, the alveolar arterial gradient has also resolved. Oxygen saturation on room air is now 98%. I will continue with the current nebulizer treatments and current oral steroids (started yesterday) for now. The patient remains on antibiotic therapy -- as per infectious disease. Input by Dr. Escalante is noted. Pulmonary status of the patient is significantly improved -- compared to the initial presentation. I will discuss the above with Dr. Yin. Jacob Witt MD cc: [id number] TT: 10/29/2016 07:27:43 Confirmation # [id number] Dictation # [id number] valeri MANN
[2016-10-29 07:41] LABS: ALB/GLOB RATIO 1.4 (1.1-1.8); ALKALINE PHOSPHATASE 103 U/L (38-133); ALT/SGPT 35 U/L (7-56); AST/SGOT 21 U/L (15-59); BILIRUBIN,DIRECT 0.2 mg/dL (0.0-0.4); BILIRUBIN,TOTAL 0.2 mg/dL (0.2-1.3); BLOOD UREA NITROGEN 28 mg/dL (7-21); CALCIUM 9.1 mg/dL (8.4-10.5); CARBON DIOXIDE 28 mmol/L (21-33); CHLORIDE 103 mmol/L (98-107); GFR AFRICAN-AMERICAN > 60; GLUCOSE,RANDOM 83 mg/dL (70-110); POTASSIUM 4.1 mmol/L (3.6-5.0); SODIUM 139 mmol/L (132-148); TOTAL PROTEIN 7.3 g/dL (5.8-8.3)
[2016-10-29 07:51] LABS: BASO # 0.07 K/mm3 (0.0-2.0); BASO % 0.6 % (0.0-3.0); EOS # 0.2 (0.0-0.7); EOS % 1.4 % (1.5-5.0); GRAN # 6.49 (1.4-6.5); GRAN % 54.8 % (50.0-68.0); HEMATOCRIT 40.1 % (42.0-52.0); LYMPH # 4.1 (1.2-3.4); LYMPH % 34.8 % (22.0-35.0); MEAN CELL VOLUME 91.8 fL (80.0-105.0); MEAN CORPUSCULAR HEMOGLOBIN 31.6 pg (25.0-35.0); MEAN CORPUSCULAR HGB CONC 34.4 g/dl (31.0-37.0); MEAN PLATELET VOLUME 10.4 fl (7.0-11.0); MONO % 8.4 % (1.0-6.0); PLATELET COUNT 257 10^3/uL (120.0-450.0); RED CELL DISTRIBUTION WIDTH 13.7 % (11.5-14.5); WHITE BLOOD COUNT 11.8 10^3/ul (4.5-11.0)
[2016-10-29] MEDS: Budesonide 0.5 mg/2 ml Inhal Susp UD IH SCH ×2 (08:11→20:05)
[2016-10-29] MEDS: Magnesium Oxide 400 mg Tab UD PO SCH ×2 (09:25→17:51)
[2016-10-29] MEDS: Cefepime 1gm in NS 100ml 1 GM/100 ML BAG IVPB SCH ×2 (09:27→22:04)
[2016-10-29] MEDS: Enoxaparin 40 mg Syringe SC SCH (09:27)
--- NOTE | 2016-10-29 11:05 | CP.PCM.PN ---
Subjective - Date & Time of Evaluation Date of Evaluation: 10/29/16 Time of Evaluation: 10:05 - Subjective Subjective: Comfortable, breathing better, afebrile, not in distress. Objective - Vital Signs/Intake and Output Vital Signs (last 24 hours): Temp Pulse Resp BP Pulse Ox 98.2 F 74 20 132/73 98 10/28/16 16:00 10/29/16 08:23 10/28/16 16:00 10/29/16 08:23 10/28/16 16:00 Intake and Output: 10/29/16 10/29/16 06:59 18:59 Intake Total 1060 Balance 1060 - Medications Medications: Current Medications Acetaminophen (Tylenol 325mg Tab) 650 mg PO Q4H PRN PRN Reason: Fever >100.5 F Last Admin: 10/25/16 03:51 Dose: 650 mg Acetylcysteine (Acetylcysteine 20%) 4 ml IH [id number] [facility] Last Admin: 10/29/16 08:11 Dose: 4 ml Albuterol/Ipratropium (Duoneb 3 Mg/0.5 Mg (3 Ml) Ud) 3 ml IH Q4H PRN PRN Reason: Wheezing Last Admin: 10/25/16 08:48 Dose: 3 ml Aspirin (Ecotrin) 81 mg PO DAILY [facility] Last Admin: 10/29/16 09:27 Dose: 81 mg Budesonide (Pulmicort Respules) 0.5 mg IH [id number] [facility] Last Admin: 10/29/16 08:11 Dose: 0.5 mg Doxycycline Hyclate (Doryx) 100 mg PO Q12 [facility] PRN Reason: Protocol Last Admin: 10/29/16 09:25 Dose: 100 mg Enoxaparin Sodium (Lovenox) 40 mg SC DAILY [facility] PRN Reason: Protocol Last Admin: 10/29/16 09:27 Dose: 40 mg Ergocalciferol (Drisdol 50,000 Intl Units Cap) 1 cap PO WED [facility] Last Admin: 10/28/16 10:14 Dose: 1 cap Folic Acid (Folic Acid) 1 mg PO DAILY [facility] Last Admin: 10/29/16 09:26 Dose: 1 mg Cefepime HCl (Maxipime 1gm) 1 gm in 100 mls @ 100 mls/hr IVPB Q12 [facility] PRN Reason: Protocol Last Admin: 10/29/16 09:27 Dose: 100 mls/hr Levalbuterol HCl (Xopenex) 0.63 mg IH [id number] [facility] Last Admin: 10/29/16 08:14 Dose: 0.63 mg Levetiracetam (Keppra) 500 mg PO BID [facility] Last Admin: 10/29/16 09:24 Dose: 500 mg Magnesium Oxide (Mag-Ox) 400 mg PO BID [facility] Last Admin: 10/29/16 09:25 Dose: 400 mg Metoprolol Tartrate (Lopressor) 25 mg PO BRKDIN [facility] Last Admin: 10/29/16 08:23 Dose: 25 mg Midodrine (Proamatine) 5 mg PO Q8 [facility] Last Admin: 10/29/16 05:44 Dose: 5 mg Pantoprazole Sodium (Protonix Ec Tab) 40 mg PO 0630 [facility] Last Admin: 10/29/16 05:45 Dose: 40 mg Phenytoin Sodium (Dilantin) 200 mg PO Q12 [facility] Last Admin: 10/29/16 09:24 Dose: 200 mg Prednisone (Prednisone Tab) 40 mg PO DAILY [facility] Last Admin: 10/29/16 09:26 Dose: 40 mg Tamsulosin HCl (Flomax) 0.4 mg PO DAILY [facility] Last Admin: 10/29/16 09:27 Dose: 0.4 mg - Labs Labs: 10/29/16 07:10 10/29/16 07:10 PT 10.5 Seconds (9.9-11.8) 10/25/16 03:00 INR 0.97 (0.93-1.08) 10/25/16 03:00 APTT 25.2 Seconds (23.7-30.8) 10/25/16 03:00 - Constitutional Appears: Non-toxic, No Acute Distress - Head Exam Head Exam: NORMAL INSPECTION - ENT Exam ENT Exam: Mucous Membranes Moist - Neck Exam Neck Exam: absent: Lymphadenopathy, Meningismus - Respiratory Exam Respiratory Exam: Decreased Breath Sounds - Cardiovascular Exam Cardiovascular Exam: +S1, +S2 - GI/Abdominal Exam GI & Abdominal Exam: Soft. 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 Witt previously
--- NOTE | 2016-10-29 11:40 | PN ---
DATE: 10/29/2016 The patient is seen lying in the bed in room 574, bed 2. The patient's room lumbar has been changed. The patient was seen and examined with the patient's nurse, Amy. The patient is lying in the bed. The patient is alert, awake, responsive. The patient does not offer any specific complaints. Overnight nurse's notes were reviewed. The patient refused vital signs last night. The patient was educated about incentive spirometry. PHYSICAL EXAMINATION: VITAL SIGNS: T-max 98.____, heart rate 74, 92, 85, blood pressure 132/73, 126/ 82, respiration 20, O2 sat 98%. HEAD: Normocephalic, atraumatic. HEENT: Shows pink conjunctivae, anicteric sclerae. No oropharyngeal lesion. NECK: No neck rigidity. CHEST: Kyphosis. LUNGS: Show no rales, crackles, or wheezing, no rhonchi, no creps. CARDIOVASCULAR: Shows S1, S2, regular rhythm. Questionable soft systolic murmur right second intercostal space, left sternal border. ABDOMEN: Soft. Positive midline surgical scar. Positive surgical scar of the abdominal surgery. GENITALIA: Male. RECTAL: Deferred. EXTREMITIES: Show positive ARISTIDES stockings. NEUROLOGIC: Cranial nerves II-XII are intact. GAIT : Independent. VASCULAR: Palpable pulses. MUSCULOSKELETAL: Shows a body mass index of 22. Cranial nerves II-XII intact. PSYCHIATRIC: Negative for anxiety, depression. Negative for suicidal or homicidal ideation, negative for auditory or visual hallucination. DIAGNOSTICS: 10/29: WBC 11.8, hemoglobin and hematocrit 13.8 and 40, platelets 257. Sodium 139, potassium 4.1, chloride 103, CO2 of 28, anion gap 12, BUN 28, creatinine 0.8. GFR greater than 60. Glucose 83, calcium 9.1, magnesium 2.0. LFTs are normal. Dilantin level is 11. Blood and urine cultures are all negative. MRSA is negative. MRSA nares is negative. Echocardiogram done yesterday. Echocardiogram shows an ejection fraction of 50% , right ventricular systolic pressure of 50 mmHg. Left ventricular systolic function, borderline, moderately dilated right ventricle with moderately- reduced right ventricular systolic function with moderate pulmonary arterial hypertension. IMPRESSION AND PLAN: 1. Sepsis secondary to left lower lobe community-acquired pneumonia. 2. Borderline reduced left ventricular systolic function with ejection fraction of 50%. 3. Pulmonary arterial hypertension with right ventricular systolic pressure of 50 mmHg. 4. Moderately dilated right ventricle with moderately reduced right ventricular systolic function. 5. History of tachycardia. 6. History of hypotension. 7. Leukocytosis with granulocytosis. 8. Normocytic anemia. 9. Prerenal kidney injury. 10. Lactic acidosis. 11. Mild rhabdomyolysis. 12. Mild rhabdomyolysis with elevated CPK. 13. History of seizure disorder with subtherapeutic Dilantin level. 14. History of poor compliance and noncompliance. 15. History of alcohol and nicotine abuse and dependence. 16. Hypovitaminosis D. 17. Left lower lobe interstitial pneumonia and infiltrate. 18. Right axis deviation. 19. Age-indeterminate inferior infarct. 21. Sinus tachycardia. 22. Right axis deviation. 23. History of prostatic hypertrophy. 24. Acute exacerbation of chronic obstructive pulmonary disease and asthma with bronchospasm. 25. Hypovitaminosis D. 1. Sepsis due to left-sided community-acquired pneumonia. 2. History of seizure disorder. 3. Hypoxemia. 4. History of nicotine and alcohol dependence. 5. Leukocytosis with granulocytosis. 6. Normocytic anemia. 7. Mild prerenal kidney injury. 8. Lactic acidosis. 9. Mild rhabdomyolysis with elevated CPK. 10. History of hypovitaminosis D. 11. History of seizure disorder with subtherapeutic Dilantin level. 12. Acute exacerbation of chronic obstructive pulmonary disease and bronchial asthma. 1. Severe sepsis with left lower lobe community-acquired pneumonia. 2. Acute exacerbation of bronchial asthma and chronic obstructive pulmonary disease with bronchospasm and wheezing. 3. Leukocytosis with granulocytosis. 4. Normocytic anemia. 5. 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 6. History of seizure disorder, history of poor compliance. 7. History of pulmonary arterial hypertension with elevated right ventricular systolic pressure of 63 mmHg. 8. Mild prerenal kidney injury. 9. Lactic acidosis. 10. Mild rhabdomyolysis with elevated CPK. 11. History of seizure disorder with poor compliance and subtherapeutic Dilantin level. 12. History of alcohol and nicotine dependence. 13. History of hypokalemia. 14. History of hypotension. 1. Severe sepsis with left lower lobe community-acquired pneumonia. 2. Lactic acidosis. 3. Tachycardia 4. Transient hypotension. 5. Transient hypoxemia. 6. Leukocytosis with granulocytosis. 7. Normocytic anemia. 8. Lactic acidosis. 9. Mild rhabdomyolysis with elevated CPK. 10. History of seizure disorder with subtherapeutic Dilantin level. 11. Left lower lobe pneumonia, infiltrate, atelectasis. 12. Right axis deviation. 13. History of alcoholic cardiomyopathy. 14. History of alcohol abuse and nicotine dependence. 15. History of seizure disorder. 16. Hypovitaminosis D. 17. Prostatic hypertrophy. 18. Hypomagnesemia. 19. Hypotension. 20. History of seizure disorder with epileptogenic focus in the right temporal region. 21. History of poor compliance. 22. 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 23. History of former nicotine and alcohol dependence. 1. Acute exacerbation of bronchial asthma versus chronic obstructive pulmonary disease with bronchospasm, wheezing. 2. Possible community-acquired versus healthcare-associated left lower lobe pneumonia and atelectasis. 3. Lactic acidosis. 4. Leukocytosis with granulocytosis. 5. Tachycardia. 6. Questionable systemic inflammatory response syndrome. 7. Right axis deviation. 8. Questionable right ventricular conduction delay versus right bundle branch block. 9. Transient hypotension. 10. Tachycardia. 11. History of seizure disorder with subtherapeutic Dilantin level. 12. History of breakthrough seizures. 13. History of Dilantin toxicity. 14. History of poor compliance. 15. History of alcoholic cardiomyopathy. 16. History of hypotension, history of chronic obstructive pulmonary disease, history of hypovitaminosis D, history of seizure disorder, history of hypokalemia, history of gastroesophageal reflux. PLAN: 1. At this time, the patient has been ordered serial labs. The patient is on Xopenex 0.63 mg and Mucomyst 20% 4-mL nebulizer every 6 hours. 2. Dilantin 200 mg twice a day. 3. Doxycycline 100 mg p.o. q. 12. 4. Drisdol 50,000 weekly. 5. Ecotrin 81 mg daily. 6. Flomax 0.4 mg daily. 7. Folic acid 1 mg daily. 8. Keppra 500 mg twice a day. 9. Lopressor 25 mg twice a day. 10. Lovenox 40 mg subQ daily. 11. Magnesium oxide 400 mg twice a day. 12. Cefepime 1 gram IV q. 12. 13. Prednisone 40 mg p.o. daily. 14. ProAmatine 5 mg p.o. q. 8 hours. 15. Protonix 40 mg daily. 16. Pulmicort nebulizer 0.5 mg q. 12. 17. Tylenol 650 q. 4 p.r.n. 18. Xopenex 0.63 mg every 6 hours. The patient is ordered chest PT, incentive spirometry, out of bed, ARISTIDES stockings , SCDs. At present, the patient has been explained about all of his diagnostic test results and recommendation by all the physicians involved in the care of the patient, which he acknowledged and understood. The patient was also explained the patient needs to complete 7 days of intravenous antibiotic, which he is in agreement with. The patient has completed day 4 of IV antibiotic today. The patient' s day 7 will be 11/01, Wednesday, and after that, the patient will be considered for discharge by 11/02. The patient was evaluated by TCU, but the patient was declined by TCU. Dictated and electronically signed, not read. Trevor Yin MD cc: [id number] TT: 10/29/2016 11:40:00 Confirmation # [id number] Dictation # [id number] [id number]
[2016-10-29 16:11] VITALS: TEMP 98.3; O2SAT 94
[2016-10-30] MEDS: Acetylcysteine 20% Inhal Soln (4ml) IH SCH ×2 (01:36→07:29)
[2016-10-30] MEDS: Levalbuterol 0.63 MG/3 ML Inhal Soln UD IH SCH ×2 (01:36→07:29)
[2016-10-30] MEDS: Pantoprazole 40 mg EC Tab PO SCH (05:31)
[2016-10-30] MEDS: Budesonide 0.5 mg/2 ml Inhal Susp UD IH SCH (07:29)
[2016-10-30 08:12] LABS: ADD MANUAL DIFF? NO
[2016-10-30 08:17] LABS: BASO # 0.03 K/mm3 (0.0-2.0); BASO % 0.3 % (0.0-3.0); EOS # 0.2 (0.0-0.7); EOS % 1.6 % (1.5-5.0); GRAN # 6.78 (1.4-6.5); LYMPH # 3.2 (1.2-3.4); LYMPH % 29.1 % (22.0-35.0); MEAN CELL VOLUME 91.6 fL (80.0-105.0); MEAN CORPUSCULAR HEMOGLOBIN 30.8 pg (25.0-35.0); MEAN CORPUSCULAR HGB CONC 33.7 g/dl (31.0-37.0); MEAN PLATELET VOLUME 10.4 fl (7.0-11.0); MONO # 0.9 (0.1-0.6); PLATELET COUNT 280 10^3/uL (120.0-450.0); RED CELL DISTRIBUTION WIDTH 13.6 % (11.5-14.5); WHITE BLOOD COUNT 11.1 10^3/ul (4.5-11.0)
[2016-10-30 08:37] VITALS: BP 132/83; PULSE 76
--- NOTE | 2016-10-30 08:40 | PN ---
DATE: 10/30/2016 SUBJECTIVE: The patient appears very comfortable this morning. He is not short of breath at rest. PHYSICAL EXAMINATION: VITAL SIGNS: Temperature is 98.3, pulse 72, respirations 18, blood pressure 129 /67. Oxygen saturation on room air ranges between 94%-98%. HEENT: Normocephalic, atraumatic. No JVD. CARDIOVASCULAR: Positive S1, S2. No S3. LUNGS: Clear bilaterally. EXTREMITIES: No clubbing, cyanosis, or edema. Calves are nontender to palpation. GASTROINTESTINAL: Abdomen is soft, nontender, nondistended. Bowel sounds are positive. SKIN: No acute rash. NEUROLOGIC: Limited at the present time. IMPRESSION: 1. Chronic obstructive pulmonary disease. 2. Asthma. 3. Acute bronchitis. 4. Left lower lobe pneumonia. PLAN: The patient appears very comfortable this morning. He is not short of breath at rest. He states he is feeling much, much better overall. On physical exam, his lungs are now clear. In addition, there is no significant alveolar-arterial gradient. I will continue with the current nebulizer treatments and decrease the oral steroids this morning. I did review the note by Dr. Escalante -- infectious disease. Hopefully, we can change to oral antibiotic therapy at this point in time. Clinical status of the patient is significantly improved overall. He is for discharge in the near future. Jacob Witt MD cc: [id number] TT: 10/30/2016 08:40:12 Confirmation # [id number] Dictation # [id number]
[2016-10-30 09:06] LABS: ALB/GLOB RATIO 1.4 (1.1-1.8); ALKALINE PHOSPHATASE 93 U/L (38-133); ALT/SGPT 34 U/L (7-56); AST/SGOT 22 U/L (15-59); BILIRUBIN,DIRECT 0.3 mg/dL (0.0-0.4); BILIRUBIN,TOTAL 0.4 mg/dL (0.2-1.3); BLOOD UREA NITROGEN 28 mg/dL (7-21); CALCIUM 9.4 mg/dL (8.4-10.5); CARBON DIOXIDE 29 mmol/L (21-33); CHLORIDE 103 mmol/L (98-107); GFR AFRICAN-AMERICAN > 60; GLUCOSE,RANDOM 81 mg/dL (70-110); MAGNESIUM 2.3 mg/dL (1.7-2.2); POTASSIUM 4.4 mmol/L (3.6-5.0); SODIUM 139 mmol/L (132-148); TOTAL PROTEIN 6.6 g/dL (5.8-8.3)
[2016-10-30] MEDS: Magnesium Oxide 400 mg Tab UD PO SCH (09:20)
[2016-10-30] MEDS: Enoxaparin 40 mg Syringe SC SCH (09:20)
--- NOTE | 2016-10-30 09:38 | DS ---
The patient is seen in room 574, bed 2. When I walked into the room today morning, the patient started cursing and using inappropriate words. The patient started cursing and using inappropriate language and was disrespectful, so I told the patient that when he has calmed down and when he is more appropriate, I will later to see him. Later on, patient came out of the room and apologized and then patient was examined with the patient's nurse, . The patient was seen sitting up in the bed. The patient does not appear to be in any distress. Overnight nurse's notes were reviewed. No adverse events documented. PHYSICAL EXAMINATION: VITAL SIGNS: T-max afebrile, heart rate 76, blood pressure 132/83, respirations 20, O2 sat is 94%-98%. HEAD: Normocephalic, atraumatic. HEENT: Shows pink conjunctivae, anicteric sclerae. No oropharyngeal lesion. NECK: No neck rigidity. CHEST: Kyphosis. LUNGS: Shows no rales, crackles, or wheezing. CARDIOVASCULAR: S1, S2, regular rhythm. Questionable soft systolic murmur right second intercostal space, left sternal border. ABDOMEN: Soft, positive healed surgical scar of the abdomen. Positive healed surgical scar of the abdomen. GENITALIA: Male. RECTAL: Deferred. EXTREMITIES: Shows no pitting edema, no calf tenderness, no Homans signs. GAIT: Independent. VASCULAR: Palpable pulses. MUSCULOSKELETAL: Shows a body mass index of 22. NEUROLOGIC: Cranial nerves II-XII are intact. PSYCHIATRIC: Negative for anxiety, depression. Negative for suicidal or homicidal ideation. Negative for auditory or visual hallucination. DIAGNOSTIC DATA: 10/30, WBC 11.1, hemoglobin/hematocrit 12.8/38.0, platelets 280. Chemistry is pending. Dilantin level is 10. Chemistry is pending. Dilantin level is 10. FINAL IMPRESSION, PLAN, AND DISCHARGE DIAGNOSES: 1. Sepsis, secondary to left lower lobe community-acquired pneumonia, atelectasis. 2. Poor compliance. 3. Tachycardia. 4. History of poor compliance and noncompliance. 5. History of hypertension. 6. Episodic hypoxemia. 7. Leukocytosis with granulocytosis. 8. Normocytic anemia. 9. Mild prerenal kidney injury. 10. Dyslipidemia with elevated HDL. 11. Hypovitaminosis D. 12. Mild rhabdomyolysis with elevated CPK. 13. Lactic acidosis (resolved). 14. History of seizure disorder. 15. History of seizure disorder and poor compliance. 16. Borderline reduced left ventricular systolic function with ejection fraction of 50%. 17. Pulmonary arterial hypertension with elevated right ventricular systolic pressure of 50 mmHg. 18. Moderately dilated right ventricle with moderately reduced right ventricular systolic function. 19. Moderate pulmonary arterial hypertension. 20. Left lower lobe pneumonia, interstitial infiltrate. 21. Sinus tachycardia. 22. Right axis deviation. 23. Acute exacerbation of chronic obstructive pulmonary disease and asthma. 1. Sepsis secondary to left lower lobe community-acquired pneumonia. 2. Borderline reduced left ventricular systolic function with ejection fraction of 50%. 3. Pulmonary arterial hypertension with right ventricular systolic pressure of 50 mmHg. 4. Moderately dilated right ventricle with moderately reduced right ventricular systolic function. 5. History of tachycardia. 6. History of hypotension. 7. Leukocytosis with granulocytosis. 8. Normocytic anemia. 9. Prerenal kidney injury. 10. Lactic acidosis. 11. Mild rhabdomyolysis. 12. Mild rhabdomyolysis with elevated CPK. 13. History of seizure disorder with subtherapeutic Dilantin level. 14. History of poor compliance and noncompliance. 15. History of alcohol and nicotine abuse and dependence. 16. Hypovitaminosis D. 17. Left lower lobe interstitial pneumonia and infiltrate. 18. Right axis deviation. 19. Age-indeterminate inferior infarct. 21. Sinus tachycardia. 22. Right axis deviation. 23. History of prostatic hypertrophy. 24. Acute exacerbation of chronic obstructive pulmonary disease and asthma with bronchospasm. 25. Hypovitaminosis D. 1. Sepsis due to left-sided community-acquired pneumonia. 2. History of seizure disorder. 3. Hypoxemia. 4. History of nicotine and alcohol dependence. 5. Leukocytosis with granulocytosis. 6. Normocytic anemia. 7. Mild prerenal kidney injury. 8. Lactic acidosis. 9. Mild rhabdomyolysis with elevated CPK. 10. History of hypovitaminosis D. 11. History of seizure disorder with subtherapeutic Dilantin level. 12. Acute exacerbation of chronic obstructive pulmonary disease and bronchial asthma. 1. Severe sepsis with left lower lobe community-acquired pneumonia. 2. Acute exacerbation of bronchial asthma and chronic obstructive pulmonary disease with bronchospasm and wheezing. 3. Leukocytosis with granulocytosis. 4. Normocytic anemia. 5. 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 6. History of seizure disorder, history of poor compliance. 7. History of pulmonary arterial hypertension with elevated right ventricular systolic pressure of 63 mmHg. 8. Mild prerenal kidney injury. 9. Lactic acidosis. 10. Mild rhabdomyolysis with elevated CPK. 11. History of seizure disorder with poor compliance and subtherapeutic Dilantin level. 12. History of alcohol and nicotine dependence. 13. History of hypokalemia. 14. History of hypotension. 1. Severe sepsis with left lower lobe community-acquired pneumonia. 2. Lactic acidosis. 3. Tachycardia 4. Transient hypotension. 5. Transient hypoxemia. 6. Leukocytosis with granulocytosis. 7. Normocytic anemia. 8. Lactic acidosis. 9. Mild rhabdomyolysis with elevated CPK. 10. History of seizure disorder with subtherapeutic Dilantin level. 11. Left lower lobe pneumonia, infiltrate, atelectasis. 12. Right axis deviation. 13. History of alcoholic cardiomyopathy. 14. History of alcohol abuse and nicotine dependence. 15. History of seizure disorder. 16. Hypovitaminosis D. 17. Prostatic hypertrophy. 18. Hypomagnesemia. 19. Hypotension. 20. History of seizure disorder with epileptogenic focus in the right temporal region. 21. History of poor compliance. 22. 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 23. History of former nicotine and alcohol dependence. 1. Acute exacerbation of bronchial asthma versus chronic obstructive pulmonary disease with bronchospasm, wheezing. 2. Possible community-acquired versus healthcare-associated left lower lobe pneumonia and atelectasis. 3. Lactic acidosis. 4. Leukocytosis with granulocytosis. 5. Tachycardia. 6. Questionable systemic inflammatory response syndrome. 7. Right axis deviation. 8. Questionable right ventricular conduction delay versus right bundle branch block. 9. Transient hypotension. 10. Tachycardia. 11. History of seizure disorder with subtherapeutic Dilantin level. 12. History of breakthrough seizures. 13. History of Dilantin toxicity. 14. History of poor compliance. 15. History of alcoholic cardiomyopathy. 16. History of hypotension, history of chronic obstructive pulmonary disease, history of hypovitaminosis D, history of seizure disorder, history of hypokalemia, history of gastroesophageal reflux. PLAN: At this time, patient is seen by infectious disease. Their recommendations noted. The patient is seen by pulmonary. Their recommendations were noted. The patient can be switched to oral antibiotic as per infectious disease. CURRENT MEDICATIONS: Mucomyst 20% 4 mL nebulizer every 6 hours with Xopenex 0.63 mg nebulizer every 6 hours. The patient is on Dilantin 200 twice a day, doxycycline 100 mg twice a day, Drisdol 50,000 weekly, Ecotrin 81 mg daily, Flomax 0.4 mg daily, folic acid 1 mg daily, Keppra 500 mg twice a day, Lopressor 25 mg twice a day, Lovenox 40 mg subQ daily, magnesium oxide 400 mg twice a day, cefepime 1 gram IV q. 12, prednisone tapering will be ordered 30 mg daily for 3 days, 20 mg daily for 3 days, 10 mg daily for 3 days, ProAmatine 5 mg 3 times a day, Protonix 40 mg daily, Pulmicort nebulizer 0.5 mg twice a day. The patient, in addition to above, patient will be discharged on Augmentin 875 twice a day, Ecotrin 81 mg daily, vitamin D 50,000 weekly, doxycycline 100 mg twice a day, folic acid 1 mg daily, Lasix 20 mg twice a day, Xopenex nebulizer 0.63 mg every 6 hours, Keppra 500 mg twice a day, magnesium oxide 400 twice a day, ProAmatine 5 mg 3 times a day, Protonix 40 mg daily, Dilantin 200 twice a day, K-Dur 20 mEq twice a day, Flomax 0.4 mg daily, prednisone tapering has been ordered. At present, patient is also discharged on Augmentin 875 twice a day, Ecotrin 81 mg daily, vitamin D 50,000 units weekly , doxycycline 100 mg twice a day, Drisdol 50,000 weekly, folic acid 1 mg daily, Lasix 20 mg twice a day, Xopenex 0.63 mg every 6 hours, Keppra 500 mg twice a day, magnesium oxide 400 mg twice a day, Lopressor 25 mg twice a day, ProAmatine 5 mg every 8 hours or 3 times a day, Protonix 40 mg daily, Dilantin 200 mg twice a day, K-Dur 20 mEq twice a day, prednisone tapering has been ordered, Flomax 0.4 mg daily, prednisone tapering has been ordered. The patient is to be discharged home. DISCHARGE FOLLOWUP: With Dr. Yin within 1 week. The patient is discharged on above medications. The patient's new script has been sent to the, electronically transmitted to the patient's pharmacy, [facility] During this hospitalization, patient was extensively explained about the details of his medical condition, diagnosis, test results, recommendation by all physicians involved in the care of the patient. All of the above was explained to the patient and the patient's girlfriend, Sheridan, on multiple occasions during this hospitalization in layman's language. All questions and concerns answered. Dictated and electronically signed, not read. Trevor Yin MD cc: [id number] TT: 10/30/2016 09:37:33 en MTDD
[2016-10-30] MEDS ORDERED: Amoxicillin-Clav 875-125 mg Tab PO SCH (10:00)
--- NOTE | 2016-10-30 16:16 | CP.PCM.PN ---
Subjective - Date & Time of Evaluation Date of Evaluation: 10/30/16 Time of Evaluation: 10:45 - Subjective Subjective: Feeling much better, less cough, breathing well, able to walk around the floor without getting short of breath. Objective - Vital Signs/Intake and Output Vital Signs (last 24 hours): Temp Pulse Resp BP Pulse Ox 98.3 F 76 20 132/83 94 L 10/29/16 16:00 10/30/16 08:33 10/29/16 16:00 10/30/16 08:33 10/30/16 08:23 Intake and Output: 10/30/16 10/30/16 06:59 18:59 Intake Total 800 Balance 800 - Medications Medications: Current Medications Acetaminophen (Tylenol 325mg Tab) 650 mg PO Q4H PRN PRN Reason: Fever >100.5 F Last Admin: 10/25/16 03:51 Dose: 650 mg Acetylcysteine (Acetylcysteine 20%) 4 ml IH [id number] [facility] Last Admin: 10/30/16 07:29 Dose: 4 ml Albuterol/Ipratropium (Duoneb 3 Mg/0.5 Mg (3 Ml) Ud) 3 ml IH Q4H PRN PRN Reason: Wheezing Last Admin: 10/25/16 08:48 Dose: 3 ml Amoxicillin/Clavulanate Potassium (Augmentin 875 Mg-125 Mg Tab) 1 tab PO Q12 [facility] PRN Reason: Protocol Stop: 11/04/16 10:01 Aspirin (Ecotrin) 81 mg PO DAILY [facility] Last Admin: 10/29/16 09:27 Dose: 81 mg Budesonide (Pulmicort Respules) 0.5 mg IH [id number] [facility] Last Admin: 10/30/16 07:29 Dose: 0.5 mg Doxycycline Hyclate (Doryx) 100 mg PO Q12 [facility] PRN Reason: Protocol Last Admin: 10/29/16 21:54 Dose: 100 mg Enoxaparin Sodium (Lovenox) 40 mg SC DAILY [facility] PRN Reason: Protocol Last Admin: 10/29/16 09:27 Dose: 40 mg Ergocalciferol (Drisdol 50,000 Intl Units Cap) 1 cap PO WED [facility] Last Admin: 10/28/16 10:14 Dose: 1 cap Folic Acid (Folic Acid) 1 mg PO DAILY [facility] Last Admin: 10/29/16 09:26 Dose: 1 mg Levalbuterol HCl (Xopenex) 0.63 mg IH [id number] [facility] Last Admin: 10/30/16 07:29 Dose: 0.63 mg Levetiracetam (Keppra) 500 mg PO BID [facility] Last Admin: 10/29/16 17:51 Dose: 500 mg Magnesium Oxide (Mag-Ox) 400 mg PO BID [facility] Last Admin: 10/29/16 17:51 Dose: 400 mg Metoprolol Tartrate (Lopressor) 25 mg PO BRKDIN [facility] Last Admin: 10/30/16 08:33 Dose: 25 mg Midodrine (Proamatine) 5 mg PO Q8 [facility] Last Admin: 10/30/16 05:31 Dose: 5 mg Pantoprazole Sodium (Protonix Ec Tab) 40 mg PO 0630 [facility] Last Admin: 10/30/16 05:31 Dose: 40 mg Phenytoin Sodium (Dilantin) 200 mg PO Q12 [facility] Last Admin: 10/29/16 21:54 Dose: 200 mg Prednisone (Prednisone Tab) 30 mg PO DAILY [facility] Tamsulosin HCl (Flomax) 0.4 mg PO DAILY [facility] Last Admin: 10/29/16 09:27 Dose: 0.4 mg - Labs Labs: 10/30/16 07:50 10/29/16 07:10 PT 10.5 Seconds (9.9-11.8) 10/25/16 03:00 INR 0.97 (0.93-1.08) 10/25/16 03:00 APTT 25.2 Seconds (23.7-30.8) 10/25/16 03:00 - Constitutional Appears: Non-toxic, No Acute Distress - Head Exam Head Exam: NORMAL INSPECTION - ENT Exam ENT Exam: Mucous Membranes Moist - Neck Exam Neck Exam: absent: Lymphadenopathy, Meningismus - Respiratory Exam Respiratory Exam: Decreased Breath Sounds - Cardiovascular Exam Cardiovascular Exam: +S1, +S2 - GI/Abdominal Exam GI & Abdominal Exam: Soft. 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 Witt previously
== END 2016-10-30 11:55 | disposition home or self-care (01) | DRG 871 ==
LOC: ED 00:39 → ERH 03:39 → 5RSO 14:54 → OBSVTOIN 10-26 16:20 → 5RSO 10-28 14:21
PROVIDERS: ADMIT Internal Medicine; ATTEND Internal Medicine
DX: A41.9 Sepsis, unspecified organism (principal); J18.9 Pneumonia, unspecified organism; E87.2 Acidosis; I11.0 Hypertensive heart disease with heart failure; J44.1 Chronic obstructive pulmonary disease with (acute) exacerbation; I42.0 Dilated cardiomyopathy; I50.22 Chronic systolic (congestive) heart failure; J45.901 Unspecified asthma with (acute) exacerbation; J98.11 Atelectasis; M62.82 Rhabdomyolysis; E83.42 Hypomagnesemia; Z91.19 Patient's noncompliance with other medical treatment and regimen; R00.0 Tachycardia, unspecified; I10 Essential (primary) hypertension; R09.02 Hypoxemia; Z86.73 Personal history of transient ischemic attack (TIA), and cerebral infarction without residual deficits; E03.9 Hypothyroidism, unspecified; Z87.891 Personal history of nicotine dependence; K21.9 Gastro-esophageal reflux disease without esophagitis; E78.5 Hyperlipidemia, unspecified; E55.9 Vitamin D deficiency, unspecified; E53.8 Deficiency of other specified B group vitamins; N40.0 Benign prostatic hyperplasia without lower urinary tract symptoms; F10.21 Alcohol dependence, in remission; J20.9 Acute bronchitis, unspecified; D64.9 Anemia, unspecified; I27.2 Other secondary pulmonary hypertension

== ENCOUNTER 2017-10-06 07:18 | Day surgery (SDC) | payer OTHER ==
[2017-10-06] MEDS ORDERED: cefTRIAXone (Rocephin) 1 gm Inj ONE (08:42)
[2017-10-06] MEDS ORDERED: cefTRIAXone 1 gm 1 GM/100 ML BAG IVPB STA (08:43)
[2017-10-06] MEDS ORDERED: cefTRIAXone 1 GM in NS 100 ML BAG IVPB ONE (08:45)
[2017-10-06] MEDS ORDERED: Propofol 10 mg/ml Inj (20 ML) ONE (09:05)
[2017-10-06] MEDS ORDERED: Lidocaine 1% Inj (20ml) ONE (09:06)
[2017-10-06] MEDS ORDERED: Succinylcholine 200 mg/10 ml Inj IV ONE (09:08)
[2017-10-06] MEDS ORDERED: Iohexol 240 (50 ml) ONE (09:19)
[2017-10-06] MEDS ORDERED: ePHEDrine 50 mg/ml Inj ONE (09:23)
[2017-10-06] MEDS ORDERED: Sevoflurane - Inhalation Anesthetic Liq (250 ml) ONE (09:38)
[2017-10-06] MEDS ORDERED: Lactated Ringer's 1,000 ML IV SCH (09:45)
[2017-10-06] MEDS ORDERED: HYDROmorphone 0.5 mg/0.5 ml ISec IVP PRN (09:45)
[2017-10-06] MEDS ORDERED: Oxycodone/Acetaminophen 5/325 mg Tab PO PRN (10:57)
[2017-10-06] MEDS ORDERED: Oxycodone/Acetaminophen 5/325 mg Tab ONE (10:59)
[2017-10-06 11:05] VITALS: RESP 18; TEMP 97.6
[2017-10-06 11:19] VITALS: BMI 22.1
[2017-10-06 11:33] VITALS: BP 134/66; PULSE 60; O2SAT 94
--- NOTE | 2017-10-06 13:06 | RAD ---
PROCEDURE: Retrograde pyelogram HISTORY: R/O STONES COMPARISON: TECHNIQUE: Fluoroscopy was provided in the operating room. 9.3 seconds of fluoro time. 2.55 mGy cumulative dose. Seven images submitted FINDINGS: There is opacification of the renal collecting systems bilaterally. There are no filling defects. The ureters were incompletely visualize. IMPRESSION: As above
--- NOTE | 2017-10-07 08:34 | OP ---
PROCEDURE DATE: 10/06/2017 UROLOGY OPERATIVE REPORT PREOPERATIVE DIAGNOSES: Voiding dysfunction, irritative and obstructive urinary complaints, urinary retention, incomplete bladder emptying, and nocturia. POSTOPERATIVE DIAGNOSES: Voiding dysfunction, irritative and obstructive urinary complaints, urinary retention, incomplete bladder emptying, and nocturia. PROCEDURE: Cystoscopy, bilateral retrograde pyelogram. BLOOD LOSS: Less than 10 mL. DRAINS: No drains. FINDINGS: Normal anterior urethra. No strictures. Verumontanum is visually occlusive. He actually has a fairly large prostate for a 57-year-old man about 2 to 3 cm. Normal ureteral orifices with clear efflux on both sides. There is no bladder cancer determined. There is a mildly trabeculated bladder. Otherwise, no abnormalities indicated. INDICATIONS FOR PROCEDURE: See history and physical for further details. A very pleasant gentleman here for the above procedure. DESCRIPTION OF PROCEDURE: After obtaining informed consent, the patient was placed on the table. Routine monitors were placed. Timeout was called to confirm the patient, positioning, etc. Once we confirmed the patient positioning, the patient was also given antibiotic prophylaxis. We inserted the cystoscope under direct vision. Anterior urethra is normal with no strictures. Verumontanum is minimally occlusive about 2 to 3 cm. Fairly large actually for a 57-year-old. Ureter was identified, trabeculated bladder noted, bilateral retrograde pyelogram. There is no stone seen. empties well. No stones are seen. Patient tolerated this without complications. Rectal exam showed a 30 g prostate, soft and smooth. No specific or other abnormalities. . Patient tolerated this without complications. We are going to recommend PVP GreenLight laser. I did discuss other options with the patient and his girlfriend, Scarlet. We discussed about other possibilities. For now, we are going to continue the Flomax. Although, he says the Flomax does not help. We are also going to continue some anticholinergics. And then we will discuss options, but he is really not completely happy with his current habits. And he also trying to look for clearance before he had surgical resection. So, from our standpoint, we are going to recommend a PVP GreenLight laser, TURP and then further plans will follow. I did discuss with him the potential side effects particularly of retrograde ejaculation. Cali Rothman MD [facility] # [id number]
--- NOTE | 2017-10-07 08:36 | HP ---
UROLOGY ADMISSION HISTORY AND PHYSICAL REASON FOR ADMISSION: Here for Urology workup for hematuria and voiding dysfunction. HISTORY OF PRESENT ILLNESS: This is a pleasant gentleman, who is here, 57-year-old with voiding dysfunction, decreased urine, nocturia, urgency, frequency and irritative and obstructive urinary complaints. He also has microhematuria and he is here now today for cystoscopy and retrograde pyelogram. PAST MEDICAL AND SURGICAL HISTORY: As listed in the chart. He is a patient also of Dr. Willams and he has been apparently preparing for incisional hernia repair. He had a history of ileostomy or colostomy several years ago. . He had surgical resection for this. He is here today for a workup prior to getting this done, they want to make sure that his urinary tract is all clear. SOCIAL HISTORY: On a social note, he is here with his girlfriend name Grant who actually is my former patient. He also is a recovering alcoholic. He has been 10 years free of any alcohol. He is also 2 years free of smoking. Others, unremarkable. REVIEW OF SYSTEMS: No weight loss, chest pain, shortness of breath. PHYSICAL EXAMINATION GENERAL: Well-nourished male, in no apparent distress. VITAL SIGNS: Within normal limits. LUNGS: Clear. HEART: Normal S1 and S2. ABDOMEN: Soft and nontender. GENITOURINARY: Normal phallus without discharge. No testicular masses. RECTAL: A 30 g prostate, soft and smooth. LABORATORY DATA: PSA noted. BUN and creatinine noted. All noted. DIAGNOSES: Microhematuria, voiding dysfunction, irritative and obstructive urinary complaints. A very pleasant gentleman, 57 years old. He was taking Flomax. He felt this was not helping as much. We gave him last time some anticholinergics. After discussing the option with the patient, he is a little bit happy, but still not perfectly happy, still according to Grant, particularly he has some irritative and obstructive complaints with . We discussed options, risk, benefits and alternatives today. PLAN: 1. Cystoscopy. 2. Retrograde pyelogram and then further plans will follow. ADDENDUM: See the operative note. We are going to recommend actually . I believe this will benefit the patient the most. Cali Rothman MD [facility] # [id number]
== END 2017-10-06 13:45 | disposition home or self-care (01) ==
LOC: SDS 07:18
PROVIDERS: ATTEND Urology
DX: R33.9 Retention of urine, unspecified (principal); R35.1 Nocturia; R31.29 Other microscopic hematuria
CPT/HCPCS: 52005; 74420; J0330; J0696; J1170; J2704; J3010; J7120; Q9966

== ENCOUNTER 2017-10-26 11:23 | Emergency (ER) | payer OTHER ==
[2017-10-26 11:37] VITALS: BMI 26.7
[2017-10-26 11:38] VITALS: RESP 18; TEMP 98.5
--- NOTE | 2017-10-26 12:08 | ED PDOC ---
Arrival/HPI - General Chief Complaint: ENT Problem Time Seen by Provider: 10/26/17 12:06 Historian: Patient - History of Present Illness Narrative History of Present Illness (Text): 10/26/17 12:06 57yo male with pmhx of Asthma, seizure, who present with complaint of hearing loss to his left ear. States it feels like something is blocking his hearing. The by the bedside stated he have appointment with ENT for Wednesday. Denies drainage, trauma, pain, any other complaint. Past Medical History - Provider Review Nursing Documentation Reviewed: Yes - Tetanus Immunization Tetanus Immunization: Unknown - Cardiac Hx Pacemaker: No - Pulmonary Hx Respiratory Disorders: Yes Hx Asthma: Yes - Neurological Hx Paralysis: No Hx Seizures: Yes - HEENT Hx HEENT Disorder: Yes (reading glasses) Hx Blind: No - Endocrine/Metabolic Hx Hypothyroidism: Yes - Hematological/Oncological Hx Blood Transfusions: No Hx Blood Transfusion Reaction: No - Integumentary Hx Dermatological Disorder: No - Musculoskeletal/Rheumatological Hx Musculoskeletal Disorders: No - Gastrointestinal Hx Gastrointestinal Disorders: Yes (weight loss) Hx Colostomy: Yes (ileostomy x2) Hx Gastroesophageal Reflux: Yes - Genitourinary/Gynecological Hx Genitourinary Disorders: Yes Hx Prostate Problems: Yes (bph slow urine stream) - Psychiatric Hx Emotional Abuse: No Hx Physical Abuse: No Hx Substance Use: No - Surgical History Hx Appendectomy: Yes Other/Comment: laparotomy/reversal of ileostomy/ partial small bowel resection today 05/18/16, exp lap 02/09/16, small bowel sx 02/16/16, perforated ap, pelvic and mucosa fistula reconstruction, ileostomy 01/2016 - Anesthesia Hx Anesthesia Reactions: No Hx Malignant Hyperthermia: No - Suicidal Assessment Feels Threatened In Home Enviroment: No Family/Social History - Physician Review Nursing Documentation Reviewed: Yes Family/Social History: Unknown Family HX Smoking Status: Former Smoker Hx Alcohol Use: Yes (quit 7 yrs ago) Hx Substance Use: No Allergies/Home Meds Allergies/Adverse Reactions: Allergies No Known Allergies Allergy (Verified 10/26/17 12:02) Home Medications: Home Meds Medication Instructions Recorded Confirmed Albuterol Sulfate [Proair Hfa] 2 puff IH QID 10/05/17 10/06/17 Alprazolam [Xanax] 0.5 mg PO PRN PRN 10/05/17 10/06/17 Atorvastatin [Lipitor] 40 mg PO DAILY 10/05/17 10/06/17 Cyanocobalamin (Vitamin B-12) 1,000 mcg IJ Q30D 10/05/17 10/06/17 [B-12 Compliance] Solifenacin Succinate [Vesicare] 10 mg PO DAILY 10/05/17 10/06/17 Thiamine [Vitamin B-1] 100 mg PO DAILY 10/05/17 10/06/17 levETIRAcetam [Keppra] 500 mg PO TID 10/05/17 10/06/17 Review of Systems - Physician Review All systems were reviewed & negative as marked: Yes - Review of Systems Constitutional: Normal Eyes: Normal ENT: Hearing Changes (Hearing loss to left ear) Respiratory: Normal Cardiovascular: Normal Gastrointestinal: Normal Genitourinary Male: Normal Musculoskeletal: Normal Skin: Normal Neurological: Normal Endocrine: Normal Hemo/Lymphatic: Normal Psychiatric: Normal Physical Exam Vital Signs Reviewed: Yes Vital Signs Temp Pulse Resp BP Pulse Ox 10/26/17 11:37 98.5 F 71 18 120/81 97 Temperature: Afebrile Blood Pressure: Normal Pulse: Regular Respiratory Rate: Normal Appearance: Positive for: Well-Appearing, Non-Toxic, Comfortable Pain Distress: None Mental Status: Positive for: Alert and Oriented X 3 - Systems Exam Head: Present: Atraumatic, Normocephalic Pupils: Present: PERRL Extroacular Muscles: Present: EOMI Conjunctiva: Present: Normal Ears: No: NORMAL TM (Cerumen noted obstructing view into the left TM) Mouth: Present: Moist Mucous Membranes Neck: Present: Normal Range of Motion Respiratory/Chest: Present: Clear to Auscultation, Good Air Exchange. No: Respiratory Distress, Accessory Muscle Use Cardiovascular: Present: Regular Rate and Rhythm, Normal S1, S2. No: Murmurs Abdomen: No: Tenderness, Distention, Peritoneal Signs Back: Present: Normal Inspection Upper Extremity: Present: Normal Inspection. No: Cyanosis, Edema Lower Extremity: Present: Normal Inspection. No: Edema Neurological: Present: GCS=15, CN II-XII Intact, Speech Normal Skin: Present: Warm, Dry, Normal Color. No: Rashes Psychiatric: Present: Alert, Oriented x 3, Normal Insight, Normal Concentration Medical Decision Making ED Course and Treatment: 05/29/18 12:43 War was irrigated with warm NS and hardened cerumen was removed from left ear. Pt noted resolution of hearing loss immoderately. He was referred to ENT. Disposition/Present on Arrival - Present on Arrival Any Indicators Present on Arrival: No History of DVT/PE: No History of Uncontrolled Diabetes: No Urinary Catheter: No History of Decub. Ulcer: No History Surgical Site Infection Following: None - Disposition Have Diagnosis and Disposition been Completed?: Yes Diagnosis: Cerumen impaction Disposition: HOME/ ROUTINE Disposition Time: 12:45 Patient Plan: Discharge Condition: STABLE Discharge Instructions (ExitCare): Ear Wax Impaction Additional Instructions: Follow up with ENT Return to ED for any new symptoms Referrals: Trevor Yin MD [Primary Care Provider] - Follow up with primary Logan Collazo MD [Medical Doctor] - Follow up with primary Brandon Henley DO [Staff Provider] - Follow up with primary Forms: [employer] (Ukrainian)
[2017-10-26 13:33] VITALS: BP 121/78; PULSE 74; O2SAT 98
== END 2017-10-26 12:49 | disposition home or self-care (01) ==
LOC: ED 11:23
DX: H61.22 Impacted cerumen, left ear (principal)

== ENCOUNTER 2018-06-23 09:57 | Inpatient (IN) | payer OTHER ==
[2018-06-23] MEDS ORDERED: Promethazine/Cod 6.25mg-10mg/5ml Syr UD PO STA (10:30)
--- NOTE | 2018-06-23 10:32 | ED PDOC ---
Arrival/HPI - General Chief Complaint: Shortness Of Breath Time Seen by Provider: 06/23/18 10:04 Historian: Patient - History of Present Illness Narrative History of Present Illness (Text): 06/23/18 10:32 57 year old male, whose past medical history includes asthma, COPD, seizure disorder (dilantin & keppra), hyperlipidemia,and ileostomy (2015) presents to the emergency department complaining of cough, congestion, wheezing, and shortness of breath, for the past 2 days. Patient reports he uses his nebulizer treatments with mild relief and cough drops. He denies body aches, fevers, chills, headache, dizziness, chest pain, abdominal pain, nausea, vomiting, diarrhea, back pain, neck pain, or any other complaint. PMD: Dr. Yin Time/Duration: < week (2 days) Symptom Onset: Gradual Symptom Course: Unchanged Activities at Onset: Light Context: Home Past Medical History - Provider Review Nursing Documentation Reviewed: Yes - Tetanus Immunization Tetanus Immunization: Unknown - Cardiac Hx Pacemaker: No - Pulmonary Hx Respiratory Disorders: Yes Hx Asthma: Yes - Neurological Hx Paralysis: No Hx Seizures: Yes - HEENT Hx HEENT Disorder: Yes (reading glasses) Hx Blind: No - Endocrine/Metabolic Hx Hypothyroidism: Yes - Hematological/Oncological Hx Blood Transfusions: No Hx Blood Transfusion Reaction: No - Integumentary Hx Dermatological Disorder: No - Musculoskeletal/Rheumatological Hx Musculoskeletal Disorders: No - Gastrointestinal Hx Gastrointestinal Disorders: Yes (weight loss) Hx Colostomy: Yes (ileostomy x2) Hx Gastroesophageal Reflux: Yes - Genitourinary/Gynecological Hx Genitourinary Disorders: Yes Hx Prostate Problems: Yes (bph slow urine stream) - Psychiatric Hx Emotional Abuse: No Hx Physical Abuse: No Hx Substance Use: No - Surgical History Hx Appendectomy: Yes Other/Comment: laparotomy/reversal of ileostomy/ partial small bowel resection today 05/18/16, exp lap 02/09/16, small bowel sx 02/16/16, perforated ap, pelvic and mucosa fistula reconstruction, ileostomy 01/2016 - Anesthesia Hx Anesthesia: Yes Hx Anesthesia Reactions: No Hx Malignant Hyperthermia: No - Suicidal Assessment Feels Threatened In Home Enviroment: No Family/Social History - Physician Review Nursing Documentation Reviewed: Yes Family/Social History: No Known Family HX Smoking Status: Former Smoker Hx Alcohol Use: Yes (quit 7 yrs ago) Hx Substance Use: No Allergies/Home Meds Allergies/Adverse Reactions: Allergies No Known Allergies Allergy (Verified 10/26/17 12:02) Home Medications: Home Meds Medication Instructions Recorded Confirmed Albuterol Sulfate [Proair Hfa] 2 puff IH QID 10/05/17 10/06/17 Alprazolam [Xanax] 0.5 mg PO PRN PRN 10/05/17 10/06/17 Atorvastatin [Lipitor] 40 mg PO DAILY 10/05/17 10/06/17 Cyanocobalamin (Vitamin B-12) 1,000 mcg IJ Q30D 10/05/17 10/06/17 [B-12 Compliance] Solifenacin Succinate [Vesicare] 10 mg PO DAILY 10/05/17 10/06/17 Thiamine [Vitamin B-1] 100 mg PO DAILY 10/05/17 10/06/17 levETIRAcetam [Keppra] 500 mg PO TID 10/05/17 10/06/17 Review of Systems - Physician Review All systems were reviewed & negative as marked: Yes - Review of Systems Constitutional: absent: Fevers Eyes: absent: Vision Changes ENT: Sinus Congestion Respiratory: SOB, Cough, Wheezing Cardiovascular: absent: Chest Pain Gastrointestinal: absent: Abdominal Pain, Diarrhea, Nausea, Vomiting Genitourinary Male: absent: Dysuria, Frequency Musculoskeletal: absent: Back Pain, Neck Pain Neurological: absent: Headache, Dizziness Physical Exam Vital Signs Reviewed: Yes Vital Signs Temp Pulse Resp BP Pulse Ox 06/23/18 10:13 18 06/23/18 09:58 99.3 F 98 H 18 121/80 90 L Temperature: Afebrile Blood Pressure: Normal Pulse: Tachycardic Respiratory Rate: Normal Appearance: Positive for: Well-Appearing, Non-Toxic, Comfortable Pain Distress: None Mental Status: Positive for: Alert and Oriented X 3 - Systems Exam Head: Present: Atraumatic, Normocephalic Pupils: Present: PERRL Extroacular Muscles: Present: EOMI Conjunctiva: Present: Normal Mouth: Present: Moist Mucous Membranes Neck: Present: Normal Range of Motion Respiratory/Chest: Present: Wheezes (wheezing bilaterally). No: Respiratory Distress, Accessory Muscle Use, Tachypneic Cardiovascular: Present: Regular Rate and Rhythm, Normal S1, S2. No: Murmurs Abdomen: No: Tenderness, Distention, Peritoneal Signs, Rebound, Guarding Back: Present: Normal Inspection Upper Extremity: Present: Normal Inspection. No: Cyanosis, Edema Lower Extremity: Present: Normal Inspection. No: Edema Neurological: Present: GCS=15, CN II-XII Intact, Speech Normal Skin: Present: Warm, Dry, Normal Color. No: Rashes Psychiatric: Present: Alert, Oriented x 3, Normal Insight, Normal Concentration Medical Decision Making ED Course and Treatment: 06/23/18 10:32 Impression: 57 year old male who presents to the emergency department complaining of coughing, wheezing, shortness of breath, and sinus congestion. Differential Diagnosis included but are not limited to: COPD exacerbation r/o pneumonia r/o influenza Plan: -- EKG -- Labs -- Chest X-ray -- Duoneb -- Phenergan/ Codeine Oral syrup -- Blood culture -- Rapid Flu A/B -- Reassess and disposition Prior Visits: Notes and results from previous visits were reviewed. Progress Notes: EKG reviewed, shows: NSR at 91 bpm, No ST-T wave changes. 06/23/18 11:33 Chest X-ray reviewed, shows: IMPRESSION: No active disease. 06/23/18 16:03 Patient was still having wheezing despite treatments and continued to have symptoms. He was saturating at 91% on RA. I discussed the case in detail with Dr. Yin who will admit under his service. - Lab Interpretations I have reviewed the lab results: Yes - RAD Interpretation Radiology Orders: 06/23/18 10:30 CHEST PORTABLE [RAD] Stat - EKG Interpretation Interpreted by ED Physician: Yes Type: 12 lead EKG - Medication Orders Current Medication Orders: Albuterol/Ipratropium (Duoneb 3 Mg/0.5 Mg (3 Ml) Ud) 3 ml IH Q15M ROMI Stop: 06/23/18 11:01 Methylprednisolone (Solu-Medrol) 125 mg IVP STAT STA Stop: 06/23/18 10:30 Promethazine HCl/Codeine (Phenergan/Codeine Oral Syrup) 5 ml PO STAT STA Stop: 06/23/18 10:31 - Scribe Statement The provider has reviewed the documentation as recorded by the Ron Hidalgo Provider Scribe Attestation: All medical record entries made by the Scribe were at my direction and personally dictated by me. I have reviewed the chart and agree that the record accurately reflects my personal performance of the history, physical exam, medical decision making, and the department course for this patient. I have also personally directed, reviewed, and agree with the discharge instructions and disposition. Disposition/Present on Arrival - Present on Arrival Any Indicators Present on Arrival: No History of DVT/PE: No History of Uncontrolled Diabetes: No Urinary Catheter: No History of Decub. Ulcer: No History Surgical Site Infection Following: None - Disposition Have Diagnosis and Disposition been Completed?: Yes Diagnosis: Asthma attack Disposition: HOSPITALIZED Disposition Time: 14:03 Patient Plan: Admission Condition: GUARDED
[2018-06-23] MEDS: Albuterol-Ipratrop 3 mg / 0.5 (3 ml) UD IH SCH ×2 (10:41→11:02)
[2018-06-23 10:59] LABS: BASO # 0.01 K/mm3 (0.0-2.0); BASO % 0.1 % (0.0-3.0); EOS # 0.1 (0.0-0.7); EOS % 0.8 % (1.5-5.0); GRAN # 5.29 (1.4-6.5); GRAN % 70.8 % (50.0-68.0); HEMOGLOBIN 12.5 g/dL (14.0-18.0); LYMPH # 0.9 (1.2-3.4); MEAN CELL VOLUME 92.1 fl (80.0-105.0); MEAN CORPUSCULAR HEMOGLOBIN 30.7 pg (25.0-35.0); MEAN CORPUSCULAR HGB CONC 33.3 g/dl (31.0-37.0); MEAN PLATELET VOLUME 10.9 fl (7.0-11.0); MONO # 1.2 (0.1-0.6); MONO % 16.3 % (1.0-6.0); RBC 4.07 10^6/uL (3.5-6.1); RED CELL DISTRIBUTION WIDTH 13.4 % (11.5-14.5); WHITE BLOOD COUNT 7.5 10^3/uL (4.5-11.0)
--- NOTE | 2018-06-23 11:31 | RAD ---
Date of service: 06/23/2018 HISTORY: cough r/o pna COMPARISON: 10/25/2016 FINDINGS: LUNGS: No active pulmonary disease. PLEURA: No significant pleural effusion identified, no pneumothorax apparent. CARDIOVASCULAR: No aortic atherosclerotic calcification present. Normal cardiac size. No pulmonary vascular congestion. OSSEOUS STRUCTURES: No significant abnormalities. VISUALIZED UPPER ABDOMEN: Normal. OTHER FINDINGS: None. IMPRESSION: No active disease.
[2018-06-23] MEDS ORDERED: Albuterol 0.083% Inhal Sol (2.5 mg/3 mL) UD IH STA (11:46)
[2018-06-23 13:39] LABS: BLOOD UREA NITROGEN 15 mg/dL (7-21); GFR NON-AFRICAN AMERICAN > 60
[2018-06-23 13:40] LABS: CALCIUM 8.6 mg/dL (8.4-10.5)
[2018-06-23 14:43] LABS: ARTERIAL BLOOD GAS HCO3 27.9 mmol/L (21-28); ARTERIAL BLOOD GAS HEMOGLOBIN 12.5 g/dL (11.7-17.4); ARTERIAL BLOOD GAS O2 CAPACITY 17.4 mL/dl (16-24); ARTERIAL BLOOD GAS O2 CONTENT 16.5 ML/dl (15-23); ARTERIAL BLOOD GAS O2 SAT 95.1 % (95-98); ARTERIAL BLOOD GAS PCO2 44 mm/Hg (35-45); ARTERIAL BLOOD GAS PH 7.41 (7.35-7.45); ARTERIAL BLOOD GAS TCO2 29.3 mmol.L (22-28)
--- NOTE | 2018-06-23 15:31 | CP.PCM.HP ---
History of Present Illness - History of Present Illness History of Present Illness: H&P for Dr. Humphrey Rush PGY2 Chief Complaint: Productive cough with yellow sputum and shortness of breath for 3 days HPI: Patient is a 57 M with history of tobacco abuse x 40 years, COPD, abdominal hernia, previous alcohol abuse who presents with complaints of productive cough and shortness of breath which has been going on for the past 3 days. Patient states he has also experienced fevers and chills during these last 3 days. He denies chest pain, abdominal pain, dysuria, nausea, vomiting, diarrhea. States he noticed these symptoms with the recent change in weather. PMD: Dr. Yin Surgical Hx: denies Allergies: NKDA Family Hx: CAD on both sides of family Present on Admission - Present on Admission Any Indicators Present on Admission: No Review of Systems - Review of Systems All systems: reviewed and no additional remarkable complaints except (what's mentioned in the HPI) Past Patient History - Tetanus Immunizations Tetanus Immunization: Unknown - Past Medical History & Family History Past Medical History?: Yes - Past Social History Smoking Status: Former Smoker - CARDIAC Hx Pacemaker: No - PULMONARY Hx Respiratory Disorders: Yes Hx Asthma: Yes - NEUROLOGICAL Hx Paralysis: No Hx Seizures: Yes - HEENT Hx HEENT Problems: Yes (reading glasses) Hx Blind: No - ENDOCRINE/METABOLIC Hx Hypothyroidism: Yes - HEMATOLOGICAL/ONCOLOGICAL Hx Blood Transfusions: No Hx Blood Transfusion Reaction: No - INTEGUMENTARY Hx Dermatological Problems: No - MUSCULOSKELETAL/RHEUMATOLOGICAL Hx Musculoskeletal Disorders: No - GASTROINTESTINAL Hx Gastrointestinal Disorders: Yes (weight loss) Hx Colostomy: Yes (ileostomy x2) Hx Gastroesophageal Reflux: Yes - GENITOURINARY/GYNECOLOGICAL Hx Genitourinary Disorders: Yes Hx Prostate Problems: Yes (bph slow urine stream) - PSYCHIATRIC Hx Emotional Abuse: No Hx Physical Abuse: No Hx Substance Use: No - SURGICAL HISTORY Hx Appendectomy: Yes Other/Comment: laparotomy/reversal of ileostomy/ partial small bowel resection today 05/18/16, exp lap 02/09/16, small bowel sx 02/16/16, perforated ap, pelvic and mucosa fistula reconstruction, ileostomy 01/2016 - ANESTHESIA Hx Anesthesia: Yes Hx Anesthesia Reactions: No Hx Malignant Hyperthermia: No Meds Allergies/Adverse Reactions: Allergies Allergy/AdvReac Type Severity Reaction Status Date / Time No Known Allergies Allergy Verified 06/23/18 17:01 Physical Exam - Constitutional Appears: Non-toxic - Head Exam Head Exam: ATRAUMATIC, NORMAL INSPECTION, NORMOCEPHALIC - Eye Exam Eye Exam: EOMI, Normal appearance - ENT Exam ENT Exam: Mucous Membranes Moist - Respiratory Exam Respiratory Exam: Rales (bilateral lung bases), NORMAL BREATHING PATTERN - Cardiovascular Exam Cardiovascular Exam: Tachycardia - GI/Abdominal Exam GI & Abdominal Exam: Distended, Hernia, Hyperactive Bowel Sounds - Extremities Exam Extremities exam: Positive for: pedal edema (bilateral 2+) - Neurological Exam Neurological exam: Alert, CN II-XII Intact, Oriented x3 - Psychiatric Exam Psychiatric exam: Normal Affect, Normal Mood - Skin Skin Exam: Dry, Intact, Warm Results - Vital Signs Recent Vital Signs: Last Vital Signs Temp 99.3 F 06/23/18 09:58 Pulse 91 H 06/23/18 12:37 Resp 18 06/23/18 12:37 BP 130/74 06/23/18 12:37 Pulse Ox 95 06/23/18 12:37 - Labs Result Diagrams: 06/24/18 07:50 06/24/18 07:50 Labs: Laboratory Results - last 24 hr 06/23/18 06/23/18 06/23/18 10:45 10:45 10:45 WBC 7.5 RBC 4.07 Hgb 12.5 L Hct 37.5 L MCV 92.1 MCH 30.7 MCHC 33.3 RDW 13.4 Plt Count 171 MPV 10.9 Gran % 70.8 H Lymph % (Auto) 12.0 L Dare % (Auto) 16.3 H Eos % (Auto) 0.8 L Baso % (Auto) 0.1 Gran # 5.29 Lymph # (Auto) 0.9 L Dare # (Auto) 1.2 H Eos # (Auto) 0.1 Baso # (Auto) 0.01 pCO2 pO2 HCO3 ABG pH ABG Total CO2 ABG O2 Saturation ABG O2 Content ABG Base Excess ABG Hemoglobin ABG Carboxyhemoglobin POC ABG HHb (Measured) ABG Methemoglobin ABG O2 Capacity Hgb O2 Saturation FiO2 Sodium 139 Potassium 3.7 Chloride 102 Carbon Dioxide 27 Anion Gap 14 BUN 15 Creatinine 0.8 Est GFR ( Amer) > 60 Est GFR (Non-Af Amer) > 60 Random Glucose 104 Calcium 8.6 Magnesium 1.9 Phenytoin 14 Influenza Typ A,B (EIA) 06/23/18 06/23/18 13:05 14:30 WBC RBC Hgb Hct MCV MCH MCHC RDW Plt Count MPV Gran % Lymph % (Auto) Dare % (Auto) Eos % (Auto) Baso % (Auto) Gran # Lymph # (Auto) Dare # (Auto) Eos # (Auto) Baso # (Auto) pCO2 44 pO2 69.0 L HCO3 27.9 ABG pH 7.41 ABG Total CO2 29.3 H ABG O2 Saturation 95.1 ABG O2 Content 16.5 ABG Base Excess 2.8 ABG Hemoglobin 12.5 ABG Carboxyhemoglobin 0.7 POC ABG HHb (Measured) 4.8 ABG Methemoglobin 0.9 ABG O2 Capacity 17.4 Hgb O2 Saturation 93.6 L FiO2 28.0 Sodium Potassium Chloride Carbon Dioxide Anion Gap BUN Creatinine Est GFR ( Amer) Est GFR (Non-Af Amer) Random Glucose Calcium Magnesium Phenytoin Influenza Typ A,B (EIA) Negative for flu a/b Assessment & Plan - Assessment and Plan (Free Text) Assessment: COPD exacerbation -Continue with xopenex and mucomyst, budesonide, and solumedrol -Tessalon perles for cough -Doxycycline and Rocephin started -Solumedrol 40 q12 Anxiety -Continue with xanax Hyperlipidemia -Continue lipitor Seizure history -Continue with dilantin and keppra DVTGI ppx: Lovenox/Protonix
[2018-06-23 16:04] LABS: BARBITURATES, UR NEGATIVE (NEGATIVE)
[2018-06-23 16:08] LABS: BENZODIAZEPINES, UR NEGATIVE (NEGATIVE); OPIATES, UR POSITIVE (NEGATIVE); PHENCYCLIDINE, UR NEGATIVE (NEGATIVE)
[2018-06-23] MEDS ORDERED: MethylPREDNISolone 40 mg Vial ONE (16:10)
[2018-06-23] MEDS: cefTRIAXone 2 GM IN NS 2 GM/100 ML BAG IVPB SCH ×2 (16:11→16:12)
[2018-06-23] MEDS: Acetylcysteine 20% Inhal Soln (4ml) IH SCH (16:12)
[2018-06-23] MEDS: Levalbuterol 0.63 MG/3 ML Inhal Soln UD IH SCH ×2 (16:12→19:46)
[2018-06-23 16:13] LABS: B-TYPE NATRIURETIC PEPTIDE 93.5 pg/mL (0-450); TROPONIN I < 0.01 ng/mL
[2018-06-23] MEDS: Enoxaparin 40 mg Syringe SC SCH (16:13)
[2018-06-23] MEDS: MethylPREDNISolone 40 mg Vial IVP SCH ×2 (16:14→20:27)
--- NOTE | 2018-06-23 16:56 | US ---
HISTORY: Leg pain and swelling. Evaluate for DVT PHYSICIAN(S): Balaji Barlow MD. TECHNIQUE: Duplex sonography and color-flow Doppler with graded compression were used to evaluate the deep venous systems of both lower extremities. FINDINGS: The visualized deep venous systems of both lower extremities are sonographically normal and compressible. Normal wave forms and augmentation are seen. There is no sonographic evidence for deep venous thrombosis in the visualized segments of both lower extremities. IMPRESSION: No sonographic evidence for deep venous thrombosis in the visualized segments of both lower extremities.
[2018-06-23] MEDS ORDERED: MethylPREDNISolone 40 mg Vial IVP STA ×2 (17:34→20:36)
[2018-06-23] MEDS: Budesonide 0.5 mg/2 ml Inhal Susp UD IH SCH (19:45)
--- NOTE | 2018-06-23 23:02 | CARD ---
APPROVED REPORT Date of service: 06/23/2018 EKG Measurement Heart [id number] <Conclusion> Normal sinus rhythm Rightward axis Nonspecific T wave abnormality Prolonged QT Abnormal ECG
[2018-06-23 23:11] VITALS: BMI 25.8
[2018-06-23] MEDS ORDERED: Influenza Vaccine 60 mcg/0.5 mL SYR (4YR UP) IM ONE (23:11)
[2018-06-23] MEDS ORDERED: Pneumococcal 23-Valent Vaccine IM ONE (23:11)
[2018-06-24] MEDS: Acetylcysteine 20% Inhal Soln (4ml) IH SCH ×3 (02:14→13:26)
[2018-06-24] MEDS: Levalbuterol 0.63 MG/3 ML Inhal Soln UD IH SCH ×3 (02:15→13:26)
[2018-06-24] MEDS: Levalbuterol 0.63 MG/3 ML Inhal Soln UD IH PRN ×2 (03:44→05:01)
[2018-06-24] MEDS: MethylPREDNISolone 40 mg Vial IVP SCH ×3 (04:08→22:33)
[2018-06-24] MEDS ORDERED: Acetylcysteine 20% Inhal Soln (4ml) IH STA ×2 (04:31→04:32)
[2018-06-24] MEDS: Pantoprazole 40 mg EC Tab PO SCH (07:09)
[2018-06-24] MEDS: Budesonide 0.5 mg/2 ml Inhal Susp UD IH SCH (07:18)
[2018-06-24 08:10] LABS: BASO # 0.01 K/mm3 (0.0-2.0); BASO % 0.1 % (0.0-3.0); GRAN # 8.23 (1.4-6.5); GRAN % 85.2 % (50.0-68.0); HEMOGLOBIN 13.6 g/dL (14.0-18.0); LYMPH # 0.7 (1.2-3.4); LYMPH % 7.5 % (22.0-35.0); MEAN CELL VOLUME 92.9 fl (80.0-105.0); MEAN CORPUSCULAR HEMOGLOBIN 31.1 pg (25.0-35.0); MEAN CORPUSCULAR HGB CONC 33.4 g/dl (31.0-37.0); MEAN PLATELET VOLUME 11.1 fl (7.0-11.0); MONO # 0.7 (0.1-0.6); MONO % 7.2 % (1.0-6.0); RBC 4.38 10^6/uL (3.5-6.1); RED CELL DISTRIBUTION WIDTH 13.6 % (11.5-14.5); WHITE BLOOD COUNT 9.7 10^3/uL (4.5-11.0)
[2018-06-24 08:19] LABS: ALB/GLOB RATIO 1.3 (1.1-1.8); ALBUMIN 4.3 g/dL (3.0-4.8); ALT/SGPT 35 U/L (7-56); AST/SGOT 42 U/L (17-59); BILIRUBIN,DIRECT 0.2 mg/dL (0.0-0.4); BLOOD UREA NITROGEN 17 mg/dL (7-21); GFR NON-AFRICAN AMERICAN > 60
--- NOTE | 2018-06-24 08:23 | HP ---
DATE OF EXAM: 06/23/2018 HISTORY OF PRESENT ILLNESS: The patient is a 57-year-old male who presented to the emergency room with shortness of breath, bilateral leg swelling. The patient came to the emergency room, walk-in. The patient's vital signs, diagnostic data, imaging studies were reviewed. For detailed history, physical examination, please refer to the history, physical examination by the medical office clerk. IMPRESSION: 1. Acute exacerbation of chronic obstructive pulmonary disease with wheezing and acute exacerbation of asthma. 2. Shortness of breath and wheezing. 3. History of poor compliance. 4. Tachycardia. 5. Hypoxemia 6. Bilateral lower extremity venous stasis. 7. Normocytic anemia with granulocytosis. 8. Hypoxemia. 9. Urine drug screen positive for opiates. 10. Bilateral lower extremity venous stasis. 11. History of nicotine dependence. 12. History of anxiety disorder. 13. History of seizure disorder. 14. History of alcohol abuse in the past. 15. History of prostatic hypertrophy. 16. History of ventral hernia, incisional hernia, history of large ventral hernia with herniation of the part of transverse colon. 17. History of noncompliance. 18. History of acute appendicitis. 19. History of indeterminate testicular masses. 20. History of acute suppurative appendicitis with perforated appendicitis. 21. History of questionable cardiomyopathy with decreased ejection fraction. 22. History of cardiac catheterization. 23. History of left ventricular ejection fraction of 30% on cardiac catheterization in 2016. 24. History of nonobstructive coronary artery disease. 25. History of cardiomyopathy. 26. History of improved left ventricular ejection fraction on the echo on 2017 with ejection fraction of 50%. 27. History of pulmonary hypertension with right ventricular systolic pressure of 50 mmHg. 28. History of moderately dilated right ventricle and moderately reduced right ventricular systolic function. 29. History of moderate pulmonary hypertension. 30. History of bilateral lower extremity venous stasis. 31. History of sepsis. 32. History of pneumonia. 33. History of dyslipidemia. 34. History of hypovitaminosis D. 35. History of vitamin B12 deficiency. 36. History of seizure disorder. 37. History of pulmonary hypertension. 38. 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 39. History of left lower lobe pneumonia. 40. History of voiding dysfunction. 41. History of cystoscopy, bilateral retrograde pyelogram. 42. History of large ventral hernia repair. 43. History of small bowel resection. 44. History of multiple abdominal surgery. 45. History of perforated appendicitis. 46. History of laparotomy. 47. History of right to mid temporal region epileptogenic focus. 48. Right axis deviation. 49. Sinus tachycardia. 50. History of appendectomy. 51. History of former nicotine and alcohol abuse. 52. History of ileostomy. PLAN: At this time, the patient at present will be admitted to [facility] to Med-Surg floor. The patient has been ordered repeat labs for the morning. TCU evaluation ordered. Current medications include Xopenex nebulizer with Mucomyst nebulizer every 6 hours, Colace 100 three times a day, Dilantin 200 every 12, Vibramycin 100 mg IV every 12, Drisdol 50,000 units weekly, folic acid 1 mg daily, Keppra 500 g three times a day, Lipitor 40 mg daily, Lovenox 40 mg subcutaneously daily for DVT prophylaxis, Protonix 40 mg daily, Rocephin 2 g IV daily, Solu-Medrol received 125 in the ER. The patient will be started on Solu-Medrol 40 IV every 8, Tessalon Perles 200 three times a day, Tylenol p.r.n. every 6, thiamine 100 mg daily, Xanax 0.5 mg at bedtime, Xopenex 0.63 mg every 6 hours round the clock p.r.n., Zofran 4 IV every 4. The patient has been ordered venous Doppler of the lower extremity, chest PT, incentive spirometry, oxygen nasal cannula, heart-healthy diet, ARISTIDES stockings, out of bed, physical therapy, occupational therapy. The patient was seen and evaluated in the emergency room and in the ultrasound area. The patient's further management will be dependent upon the patient's clinical condition, hemodynamic status and as per the patient response to therapeutic intervention, as per the patient's diagnostic test results, and as per recommendation by all physician involved in the care of the patient. Dictated and electronically signed, not read. Trevor Yin MD
[2018-06-24] MEDS: Enoxaparin 40 mg Syringe SC SCH (12:21)
--- NOTE | 2018-06-24 14:24 | CP.PCM.PN ---
Subjective - Date & Time of Evaluation Date of Evaluation: 06/24/18 Time of Evaluation: 06:30 - Subjective Subjective: Patient seen and examined at bedside in no acute distress. Patient states his breathing is improving and he is starting to feel better. . Objective - Vital Signs/Intake and Output Vital Signs (last 24 hours): Temp Pulse Resp BP Pulse Ox 98.4 F 82 18 140/81 94 L 06/23/18 23:15 06/23/18 23:15 06/23/18 23:15 06/23/18 23:15 06/23/18 23:15 Intake and Output: 06/24/18 06/24/18 06:59 18:59 Intake Total 720 Output Total 200 Balance 520 - Medications Medications: Current Medications Acetaminophen (Tylenol 325mg Tab) 650 mg PO Q6 PRN PRN Reason: TEMP>=99.5F Acetaminophen (Tylenol 650 Mg Supp) 650 mg RC Q6H PRN PRN Reason: TEMP>=99.5F Acetylcysteine (Acetylcysteine 20%) 4 ml IH [id number] [facility] Last Admin: 06/24/18 13:26 Dose: 4 ml Alprazolam (Xanax) 0.5 mg PO HS [facility]; Protocol Last Admin: 06/23/18 21:56 Dose: 0.5 mg Atorvastatin Calcium (Lipitor) 40 mg PO DAILY [facility] Last Admin: 06/24/18 09:38 Dose: 40 mg Benzonatate (Tessalon Perles) 200 mg PO TID [facility] Last Admin: 06/24/18 09:38 Dose: 200 mg Budesonide (Pulmicort Respules) 0.5 mg IH [id number] [facility] Last Admin: 06/24/18 07:18 Dose: 0.5 mg Docusate Sodium (Colace) 100 mg PO TID [facility] Last Admin: 06/24/18 09:38 Dose: 100 mg Doxycycline Hyclate (Doryx) 100 mg PO Q12 [facility] Last Admin: 06/24/18 12:20 Dose: 100 mg Enoxaparin Sodium (Lovenox) 40 mg SC DAILY [facility]; Protocol Last Admin: 06/23/18 16:13 Dose: Not Given Ergocalciferol (Drisdol 50,000 Intl Units Cap) 1 cap PO WED [facility] Folic Acid (Folic Acid) 1 mg PO DAILY [facility] Last Admin: 06/24/18 09:39 Dose: 1 mg Ceftriaxone Sodium (Rocephin 2 Gm Ivpb) 2 gm in 100 mls @ 100 mls/hr IVPB DAILY [facility]; Protocol Last Admin: 06/23/18 16:12 Dose: 100 mls/hr Levalbuterol HCl (Xopenex) 0.63 mg IH [id number] [facility] Last Admin: 06/24/18 13:26 Dose: 0.63 mg Levalbuterol HCl (Xopenex) 0.63 mg IH Q2H PRN PRN Reason: SOB/WHEEZING Last Admin: 06/24/18 05:01 Dose: 0.63 mg Levetiracetam (Keppra) 500 mg PO TID [facility] Last Admin: 06/24/18 09:38 Dose: 500 mg Methylprednisolone (Solu-Medrol) 30 mg IVP Q12 [facility] Ondansetron HCl (Zofran Inj) 4 mg IVP Q4H PRN PRN Reason: Nausea/Vomiting Pantoprazole Sodium (Protonix Ec Tab) 40 mg PO 0600 [facility] Last Admin: 06/24/18 07:09 Dose: 40 mg Phenytoin Sodium (Dilantin) 200 mg PO Q12 [facility] Last Admin: 06/24/18 09:37 Dose: 200 mg Thiamine HCl (Vitamin B1 Tab) 100 mg PO DAILY [facility] Last Admin: 06/24/18 09:39 Dose: 100 mg - Labs Labs: 06/24/18 07:50 06/24/18 07:50 - Constitutional Appears: Non-toxic, No Acute Distress - Head Exam Head Exam: ATRAUMATIC, NORMAL INSPECTION, NORMOCEPHALIC - Eye Exam Eye Exam: EOMI - ENT Exam ENT Exam: Mucous Membranes Moist - Respiratory Exam Respiratory Exam: NORMAL BREATHING PATTERN. absent: Rhonchi, Wheezes - Cardiovascular Exam Cardiovascular Exam: REGULAR RHYTHM, +S1, +S2 - GI/Abdominal Exam GI & Abdominal Exam: Distended, Hernia, Normal Bowel Sounds. absent: Guarding, Tenderness - Neurological Exam Neurological Exam: Alert, Awake, Oriented x3 - Psychiatric Exam Psychiatric exam: Normal Affect, Normal Mood - Skin Skin Exam: Normal Color, Warm Assessment and Plan - Assessment and Plan (Free Text) Assessment: COPD exacerbation -Continue with xopenex and mucomyst, budesonide, and solumedrol -Tessalon perles for cough -Doxycycline and Rocephin started -Solumedrol tapered down to 30 mg q12 Anxiety -Continue with xanax Hyperlipidemia -Continue lipitor Seizure history -Continue with dilantin and keppra DVTGI ppx: Lovenox/Protonix
[2018-06-24] MEDS ORDERED: Benzocaine/Menthol (Cepacol) Lozenge MT PRN (20:29)
--- NOTE | 2018-06-24 21:31 | PN ---
DATE: 06/24/2018 SUBJECTIVE: The patient was seen sitting up in the bed. Overnight nurse's notes were reviewed. The patient's girlfriend is at bedside. The patient overnight had episodes of wheezing. The patient also attempted and verbalized that he wanted to leave the hospital yesterday, but stayed overnight. The patient had episodes of shortness of breath and chest tightness with wheezing noted overnight. The patient today even refused nebulizer treatment. The patient was evaluated by the medical staff services manager, then convinced to take nebulizer medication. The patient has been extremely noncompliant even as an outpatient. PHYSICAL EXAMINATION: GENERAL: The patient is seen sitting up in the bed. The patient is alert, awake, responsive. VITAL SIGNS: T-max 98.4, blood pressure is 128/79, 140/81, 129/82, 132/74, 130/74, respiration 18 to 20, O2 sat is 90% to 94% to -95% on oxygen. Intake output not documented. HEENT: Head is normocephalic, atraumatic. HEENT examination shows pink conjunctivae. Anicteric sclerae. No oropharyngeal lesion. NECK: No neck rigidity. CHEST: Kyphosis. CARDIOPULMONARY: S1, S2, regular rhythm. Questionable soft systolic murmur at the left sternal border, right second intercostal space, left second intercostal space. LUNGS: Decreased wheezing and decreased rhonchi, slightly improved air entry. With decreased breath sounds. ABDOMEN: Protuberant with positive midline incisional ventral hernia. GENITALIA: Male. RECTAL: Deferred. EXTREMITIES: The patient is refusing to wear ARISTIDES stockings, positive swelling of the lower extremity noted. MUSCULOSKELETAL: Shows a body mass index of 26. NEUROLOGIC: The patient is alert, awake, responsive. Motor strength is 5/5. Gait examination is not tested. DIAGNOSTICS: On 06/24/2018, WBC 9.7, hemoglobin/hematocrit 13.6, 41, platelet 201. Granulocytes 85. Sodium 140, potassium 4.0, chloride 102, CO2 29, anion gap 13, BUN 17, creatinine 0.8, GFR greater than 60, glucose 112, calcium 9.0, phosphorus 3.6, magnesium 2.1, alk phos 148. Troponin negative. BNP negative. Urine drug screen positive for opiates, negative for benzos. Influenza negative. Microbiology, blood cultures negative. Venous Doppler of the lower extremity done yesterday was negative. EKG shows right axis deviation, nonspecific T-wave abnormalities. IMPRESSION: 1. Acute exacerbation of chronic obstructive pulmonary disease with acute bronchitis and acute exacerbation of bronchial asthma with hypoxemia, wheezing. 2. Poor compliance and noncompliance. 3. Hypertension. 4. Bilateral lower extremity venous stasis. 5. Tachycardia. 6. Hypoxemia. 7. Abdominal incisional vertebral hernia. 8. Normocytic anemia. 9. Granulocytosis. 10. Hypoxemia. 11. Urine drug screen positive for opiates. 12. Right axis deviation. 13. Bilateral lower extremity venous stasis. 14. Anxiety disorder. 15. Seizure disorder. 16. Hypovitaminosis D. 17. Hyperlipidemia. PLAN: At this time, the patient has been ordered repeat labs for the morning. TCU evaluation ordered. Current medications, Mucomyst nebulizer 20% 4 mL mixed with Xopenex nebulizer 0.63 mg every 6 hours, Colace 100 mg three times a day, Dilantin 200 mg every 12, doxycycline 100 mg p.o. every 12, Drisdol 50,000 weekly, folic acid 1 mg daily, Keppra 500 mg three times a day, the patient is ordered a dose of Lasix 40 IV x1 to resolve venous stasis, Lovenox 40 mg subcutaneously daily, Protonix 40 mg daily for GI prophylaxis, Pulmicort nebulizer 0.5 mg every 12, Rocephin 2 g IV daily, the patient's Solu-Medrol was decreased from 40 IV every 8 to 30 IV every 12, Tessalon Perles 200 three times a day, Tylenol 650 mg p.o. suppository every 12 p.r.n., thiamine 100 mg daily, Xanax 0.5 mg at bedtime, Zofran four every 4 p.r.n. Chest PT, incentive spirometry, oxygen 2 liters nasal cannula, occupational therapy, physical therapy, SCDs, ARISTIDES stockings, thigh-high ordered. The patient was evaluated by physical therapist. The patient was seen by the physical therapist. The recommendation by physical therapy was discharge recommendation was home.. The patient's medications will be titrated down with close monitoring. If the patient continues to improve, the patient's intravenous antibiotics, intravenous steroids will be switched over to p.o. steroid and anticipate discharge soon. The patient's condition, diagnosis, treatment plan, treatment options other details discussed at length with the patient and the patient's girlfriend who was present at the room at the bedside, but the patient does not appear to be paying attention to the recommendation and due to his patient history of severe noncompliance and poor compliance, the patient has stated and indicated that he will not comply with the recommendation which has been given to him during the multiple office visits and even today. The patient also was advised to follow up in the office on a regular basis and also advised to follow up when the patient is sick, but the patient does not want to follow up and states that he would like to follow up every 3 months and not otherwise. The patient was explained about all the risk and consequences of his multiple medical condition which he acknowledged understand. Dictated and electronically signed, not read. Trevor Yin MD
[2018-06-25] MEDS: Pantoprazole 40 mg EC Tab PO SCH (06:22)
[2018-06-25] MEDS: Acetylcysteine 20% Inhal Soln (4ml) IH SCH ×3 (07:37→20:25)
[2018-06-25] MEDS: Budesonide 0.5 mg/2 ml Inhal Susp UD IH SCH (07:38)
[2018-06-25] MEDS: Levalbuterol 0.63 MG/3 ML Inhal Soln UD IH SCH ×3 (07:38→20:26)
[2018-06-25 08:02] LABS: BASO # 0.03 K/mm3 (0.0-2.0); BASO % 0.4 % (0.0-3.0); EOS # 0.1 (0.0-0.7); EOS % 0.8 % (1.5-5.0); HEMOGLOBIN 13.1 g/dL (14.0-18.0); LYMPH # 1.8 (1.2-3.4); LYMPH % 23.3 % (22.0-35.0); MEAN CELL VOLUME 92.7 fl (80.0-105.0); MEAN CORPUSCULAR HEMOGLOBIN 30.8 pg (25.0-35.0); MEAN CORPUSCULAR HGB CONC 33.2 g/dl (31.0-37.0); MEAN PLATELET VOLUME 11.1 fl (7.0-11.0); MONO % 12.3 % (1.0-6.0); RBC 4.25 10^6/uL (3.5-6.1); RED CELL DISTRIBUTION WIDTH 13.6 % (11.5-14.5); WHITE BLOOD COUNT 7.9 10^3/uL (4.5-11.0)
[2018-06-25 08:21] LABS: ALB/GLOB RATIO 1.3 (1.1-1.8); ALBUMIN 4.2 g/dL (3.0-4.8); ALT/SGPT 38 U/L (7-56); AST/SGOT 43 U/L (17-59); BILIRUBIN,DIRECT 0.3 mg/dL (0.0-0.4); BLOOD UREA NITROGEN 22 mg/dL (7-21); CALCIUM 8.5 mg/dL (8.4-10.5); GFR NON-AFRICAN AMERICAN > 60
[2018-06-25] MEDS: MethylPREDNISolone 40 mg Vial IVP SCH ×2 (10:52→21:13)
[2018-06-25] MEDS: cefTRIAXone 2 GM IN NS 2 GM/100 ML BAG IVPB SCH (10:52)
[2018-06-25] MEDS: Enoxaparin 40 mg Syringe SC SCH (10:53)
--- NOTE | 2018-06-25 11:25 | PN ---
DATE: 06/25/2018 SUBJECTIVE: The patient is in room 571, bed 2. Overnight nurse's notes were reviewed. The patient has been noncompliant with nebulizer treatment, refusing medications, refusing Lovenox. The patient had episodic shortness of breath and wheezing for which the patient asked for nebulizer treatment with positive relief. The patient has been extremely rude and noncompliant with the nurses and the physician, despite my multiple explanation about his medical condition to him and his girlfriend. The patient still appears to be rude and noncompliant. PHYSICAL EXAMINATION: VITAL SIGNS: The patient's vital signs from today, June 25, 2018 are not documented in [place] yet. For reasons unknown. GENERAL: The patient is in room 571, bed 2. The patient does not appear to be in any distress at present. The patient is alert, awake and responsive. HEENT: Head examination normocephalic and atraumatic. HEENT examination shows pink conjunctivae. Anicteric sclerae. No oropharyngeal lesion. No neck rigidity. CHEST: Kyphosis. LUNGS: Shows positive audible rhonchi and positive wheezing today which I noted in the upper lung field which is probably secondary to the patient's refusal of the nebulizer treatment and the medication. The patient has developed some wheezing again. Positive rhonchi noted. Decreased breath sounds noted bilaterally. CARDIOVASCULAR: S1, S2, regular rhythm. Questionable soft systolic murmur left sternal border, right second intercostal space and left second intercostal space. ABDOMEN: Protuberant and distended. Positive incisional ventral hernia noted. No palpable hepatosplenomegaly. GENITALIA: Male. RECTAL: Deferred. EXTREMITIES: Positive swelling of the lower extremity noted. The patient has been refusing ARISTIDES stockings and SCDs. MUSCULOSKELETAL: As per the body mass index. NEUROLOGIC: . Motor strength is 5/5 in upper and lower extremity. Cranial nerves II-XII intact and limited. Gait examination not tested. LABORATORY DATA: June 25, 2018 still pending despite ordered at 5:00 a.m. today in the morning. IMPRESSION: 1. Severe noncompliance and poor compliance. 2. History of seizure disorder. 3. Acute exacerbation of chronic obstructive pulmonary disease, asthmatic bronchitis and bronchospasm with rebound wheezing. 4. Hypoxemia. 5. History of nicotine, alcohol abuse and dependence. 6. Hypertension. 7. History of dilated alcoholic cardiomyopathy. 8. History of pulmonary hypertension. 9. Bilateral lower extremity venous stasis. 10. Large incisional ventral hernia of the abdomen. 11. Chronic obstructive pulmonary disease. 12. History of seizure disorder. 13. History of hypertension. 14. Hyperlipidemia, history of prostatic hypertrophy. 15. History of perforated ruptured appendicitis with multiple abdominal surgeries and exploratory laparotomy. 16. Hyperlipidemia. 17. Vitamin B12 deficiency. 18. Prostatic hypertrophy. 19. Anxiety disorder. 20. Noncompliance. PLAN: At this time, the patient will be continued on the same therapeutic intervention with maintenance of the IV steroids, IV nebulizer treatment, IV antibiotic, chest PT, incentive spirometry, GI and DVT prophylaxis, all will be continued. No changes in the therapeutic intervention will be done today. The patient will be continued on all the medications as per the MAR of today which was reviewed and modified and updated. The patient is again counseled and re-advised about strict compliance with all the medications recommendation by physician, nurses, physical therapy, occupational therapy and ambulation therapy. The patient has been advised to be out of bed to chair and performed physical therapy, occupational therapy, ambulation therapy and gait training. Dictated and electronically signed, not read. Trevor Yin MD
[2018-06-26] MEDS: Acetylcysteine 20% Inhal Soln (4ml) IH SCH ×4 (01:19→19:29)
[2018-06-26] MEDS: Levalbuterol 0.63 MG/3 ML Inhal Soln UD IH SCH ×4 (01:19→19:29)
[2018-06-26] MEDS: Pantoprazole 40 mg EC Tab PO SCH (05:33)
[2018-06-26] MEDS: Budesonide 0.5 mg/2 ml Inhal Susp UD IH SCH ×2 (07:19→19:29)
[2018-06-26 07:45] LABS: BASO # 0.03 K/mm3 (0.0-2.0); BASO % 0.5 % (0.0-3.0); EOS # 0.1 (0.0-0.7); EOS % 1.3 % (1.5-5.0); HEMOGLOBIN 12.7 g/dL (14.0-18.0); LYMPH % 31.4 % (22.0-35.0); MEAN CELL VOLUME 92.8 fl (80.0-105.0); MEAN CORPUSCULAR HEMOGLOBIN 30.4 pg (25.0-35.0); MEAN CORPUSCULAR HGB CONC 32.7 g/dl (31.0-37.0); MEAN PLATELET VOLUME 10.9 fl (7.0-11.0); MONO % 15.5 % (1.0-6.0); RBC 4.18 10^6/uL (3.5-6.1); RED CELL DISTRIBUTION WIDTH 13.3 % (11.5-14.5); WHITE BLOOD COUNT 6.2 10^3/uL (4.5-11.0)
[2018-06-26 08:04] LABS: ALB/GLOB RATIO 1.2 (1.1-1.8); ALBUMIN 3.8 g/dL (3.0-4.8); ALT/SGPT 34 U/L (7-56); AST/SGOT 39 U/L (17-59); BILIRUBIN,DIRECT 0.2 mg/dL (0.0-0.4); BLOOD UREA NITROGEN 27 mg/dL (7-21); CALCIUM 8.8 mg/dL (8.4-10.5); GFR NON-AFRICAN AMERICAN > 60
[2018-06-26] MEDS ORDERED: Benzocaine/Menthol (Cepacol) Lozenge MT PRN (08:56)
[2018-06-26] MEDS: cefTRIAXone 2 GM IN NS 2 GM/100 ML BAG IVPB SCH (09:39)
[2018-06-26] MEDS: MethylPREDNISolone 40 mg Vial IVP SCH ×2 (09:41→23:19)
[2018-06-26] MEDS: Enoxaparin 40 mg Syringe SC SCH (09:44)
--- NOTE | 2018-06-26 18:57 | PN ---
DATE: 06/26/2018 SUBJECTIVE: The patient is seen sitting up in the bed in room 570, bed 1 today. The patient is having breakfast. The patient denies any chest pain or shortness of breath. According to the nurses' notes, the patient has been noncompliant with diet and the patient has been having episodic desaturation and the patient is refusing to use oxygen despite my recommendation and nurses recommendation, but the patient has been noncompliant. In addition, the patient is also not compliant with the hospital diet. The patient was found to be alert, awake, and oriented x3. The patient refuses ARISTIDES stockings and SCDs. OBJECTIVE: VITAL SIGNS: T-max 97.9, heart rate 75, 78, and 79, blood pressure 135/85, 124/80, and 117/78, respirations 20, and O2 sat 96%. HEENT: Head; normocephalic and atraumatic. HEENT examination shows pink conjunctivae. Anicteric sclerae. No oropharyngeal lesion. NECK: No neck rigidity. CHEST: Kyphosis. LUNGS: Shows decreased breath sounds. Decreasing rhonchi and wheezing. CARDIOVASCULAR: S1 and S2, regular rhythm. Questionable soft systolic murmur left sternal border, right second intercostal space, left second intercostal space. ABDOMEN: Protuberant, distended, and obese. Positive midline incisional hernia. GENITALIA: Male. RECTAL: Deferred. EXTREMITIES: Shows trace swelling of the lower extremity. MUSCULOSKELETAL: Shows a body mass index of 25.8. NEUROLOGIC: The patient is alert, awake, oriented x3, responsive, and is able to move upper and lower extremity without assistance. Gait examination is independent. Motor strength is 5/5. Cranial nerves II through XII intact. VASCULAR: Palpable pulses. DIAGNOSTIC DATA: On 06/26/2018; WBC 6.2, hemoglobin/hematocrit 12.7 and 38.8, and platelet 198. Sodium 140, potassium 3.7, chloride 103, CO2 of 29, anion gap 12, BUN 27, creatinine 0.8, GFR greater than 60, glucose 82, calcium 8.8, phosphorus 4.2, and magnesium 2.1. LFTs are normal. Blood cultures, no growth after 3 days. IMPRESSION AND PLAN: 1. Acute exacerbation of chronic obstructive pulmonary disease and emphysema. 2. Asthmatic bronchitis. 3. Extremely poor compliance and noncompliance. 4. Hypertension. 5. Bilateral lower extremity venous stasis. 6. Anterior abdominal wall midline incisional and ventral hernia. 7. Normocytic anemia. 8. Granulocytosis. 9. Hypoxemia. 10. Mild prerenal kidney injury. 11. Urine drug screen positive for opiates. 12. Seizure disorder. 13. History of nicotine, alcohol and polysubstance abuse and dependence. 14. Bilateral lower extremity venous stasis (resolved). 15. History of alcoholic dilated cardiomyopathy. 16. Right axis deviation. 17. Sore throat. 18. Constipation. 19. Hypovitaminosis D. 20. Anxiety disorder. Plan at this time, the patient will be continued on the following medications as per the MAR Mucomyst nebulizer 20% 4 mL every 6 hours to be mixed with Xopenex nebulizer 0.63 mg every 6 hours, Cepacol lozenges every 2 hours p.r.n., Colace 100 mg three times a day, Dilantin 200 mg twice a day, doxycycline 100 mg p.o. every 12 hours, Drisdol 50,000 units weekly, folic acid 1 mg daily, Keppra 500 mg three times a day, Lipitor 40 mg daily, Lovenox 40 mg subcutaneously daily, Protonix 40 mg daily, Pulmicort nebulizer 0.5 mg every 12 hours, Rocephin 2 g IV daily, Solu-Medrol is to be maintained at 30 mg IV every 12 hours today, we will consider decreasing it tomorrow if the patient stays stable, Tylenol p.r.n., thiamine 100 mg daily, Xanax 0.5 mg at bedtime, Xopenex nebulizer, Zofran 4 mg IV every 4 hours p.r.n., incentive spirometry, chest PT, oxygen 2 L, out of bed to chair, ARISTIDES stockings, SCDs, physical therapy, and occupational therapy. Dictated and electronically signed, not read. Trevro iYn MD
[2018-06-27] MEDS: Levalbuterol 0.63 MG/3 ML Inhal Soln UD IH SCH ×4 (01:22→19:41)
[2018-06-27] MEDS: Acetylcysteine 20% Inhal Soln (4ml) IH SCH ×4 (01:22→19:39)
[2018-06-27] MEDS: Pantoprazole 40 mg EC Tab PO SCH (06:00)
[2018-06-27] MEDS: Budesonide 0.5 mg/2 ml Inhal Susp UD IH SCH ×3 (07:30→19:41)
[2018-06-27] MEDS: Cefpodoxime (Vantin) 200 mg Tab PO SCH ×2 (10:09→21:41)
[2018-06-27] MEDS: MethylPREDNISolone 40 mg Vial IVP SCH ×2 (10:09→21:41)
[2018-06-27] MEDS: Enoxaparin 40 mg Syringe SC SCH ×2 (10:09→10:26)
--- NOTE | 2018-06-27 11:40 | CP.PCM.PN ---
Subjective - Date & Time of Evaluation Date of Evaluation: 06/27/18 Time of Evaluation: 11:35 - Subjective Subjective: Patient seen and examined at bedside in no acute distress. States his breathing has improved but is however not to baseline as of yet. No complaints overnight. Objective - Vital Signs/Intake and Output Vital Signs (last 24 hours): Temp Pulse Resp BP Pulse Ox 98.3 F 80 20 105/63 93 L 06/27/18 06:00 06/27/18 06:00 06/27/18 06:00 06/27/18 06:00 06/27/18 06:00 - Medications Medications: Current Medications Acetaminophen (Tylenol 325mg Tab) 650 mg PO Q6 PRN PRN Reason: TEMP>=99.5F Acetaminophen (Tylenol 650 Mg Supp) 650 mg RC Q6H PRN PRN Reason: TEMP>=99.5F Acetylcysteine (Acetylcysteine 20%) 4 ml IH [id number] [facility] Last Admin: 06/27/18 07:29 Dose: Not Given Alprazolam (Xanax) 0.5 mg PO HS [facility]; Protocol Last Admin: 06/26/18 22:11 Dose: 0.5 mg Atorvastatin Calcium (Lipitor) 40 mg PO DAILY [facility] Last Admin: 06/27/18 10:09 Dose: 40 mg Benzocaine/Menthol (Cepacol Sore Throat) 1 james MT Q2H PRN PRN Reason: Sore Throat Last Admin: 06/26/18 09:42 Dose: 1 james Benzonatate (Tessalon Perles) 200 mg PO TID [facility] Last Admin: 06/27/18 10:09 Dose: 200 mg Budesonide (Pulmicort Respules) 0.5 mg IH [id number] [facility] Last Admin: 06/27/18 07:30 Dose: Not Given Cefpodoxime Proxetil (Vantin) 200 mg PO Q12 [facility] Last Admin: 06/27/18 10:09 Dose: 200 mg Docusate Sodium (Colace) 100 mg PO TID [facility] Last Admin: 06/27/18 10:20 Dose: Not Given Doxycycline Hyclate (Doryx) 100 mg PO Q12 [facility] Last Admin: 06/27/18 10:09 Dose: 100 mg Enoxaparin Sodium (Lovenox) 40 mg SC DAILY [facility]; Protocol Last Admin: 06/27/18 10:26 Dose: Not Given Ergocalciferol (Drisdol 50,000 Intl Units Cap) 1 cap PO WED [facility] Folic Acid (Folic Acid) 1 mg PO DAILY [facility] Last Admin: 06/27/18 10:09 Dose: 1 mg Levalbuterol HCl (Xopenex) 0.63 mg IH [id number] [facility] Last Admin: 06/27/18 07:30 Dose: Not Given Levalbuterol HCl (Xopenex) 0.63 mg IH Q2H PRN PRN Reason: SOB/WHEEZING Last Admin: 06/24/18 05:01 Dose: 0.63 mg Levetiracetam (Keppra) 500 mg PO TID [facility] Last Admin: 06/27/18 10:09 Dose: 500 mg Methylprednisolone (Solu-Medrol) 30 mg IVP Q12 [facility] Last Admin: 06/27/18 10:09 Dose: 30 mg Ondansetron HCl (Zofran Inj) 4 mg IVP Q4H PRN PRN Reason: Nausea/Vomiting Pantoprazole Sodium (Protonix Ec Tab) 40 mg PO 0600 [facility] Last Admin: 06/27/18 06:00 Dose: 40 mg Phenytoin Sodium (Dilantin) 200 mg PO Q12 [facility] Last Admin: 06/27/18 10:09 Dose: 200 mg Thiamine HCl (Vitamin B1 Tab) 100 mg PO DAILY [facility] Last Admin: 06/27/18 10:09 Dose: 100 mg - Labs Labs: 06/26/18 07:30 06/26/18 07:30 - Constitutional Appears: Non-toxic, No Acute Distress - Head Exam Head Exam: ATRAUMATIC, NORMAL INSPECTION, NORMOCEPHALIC - Eye Exam Eye Exam: EOMI - ENT Exam ENT Exam: Mucous Membranes Moist - Respiratory Exam Respiratory Exam: Wheezes (present however improved since admission). absent: Clear to Ausculation Bilateral - Cardiovascular Exam Cardiovascular Exam: REGULAR RHYTHM, +S1, +S2 - GI/Abdominal Exam GI & Abdominal Exam: Soft, Normal Bowel Sounds - Extremities Exam Extremities Exam: Normal Inspection - Back Exam Back Exam: NORMAL INSPECTION - Neurological Exam Neurological Exam: Alert, Awake, Oriented x3 - Psychiatric Exam Psychiatric exam: Normal Affect, Normal Mood - Skin Skin Exam: Normal Color, Warm Assessment and Plan - Assessment and Plan (Free Text) Assessment: Patient is a 57 M with history of tobacco abuse x 40 years, COPD, abdominal hernia, previous alcohol abuse who presents with complaints of productive cough and shortness of breath found to be in COPD exacerbation. Plan: COPD exacerbation -Continue with xopenex and mucomyst, budesonide, and solumedrol -Tessalon perles for cough -Doxycycline and Rocephin started -Solumedrol tapered down to 30 mg q12 Anxiety -Continue with xanax Hyperlipidemia -Continue lipitor Seizure history -Continue with dilantin and keppra DVTGI ppx: Lovenox/Protonix
[2018-06-27 14:46] VITALS: TEMP 98.2
--- NOTE | 2018-06-27 23:59 | PN ---
DATE: 06/27/2018 SUBJECTIVE: The patient is seen sitting up in the bed in room 570, bed 1. The patient according to the nurses have been intermittently refusing nebulizer medications, and not compliant with hospital food, has been walking around, refuses nebulizer medication, refuses medications at time. PHYSICAL EXAMINATION: VITAL SIGNS: T-max 98.2, pulse 75, blood pressure 115/67, respiration 20, O2 sat 91% on room air. HEENT: Head is normocephalic, atraumatic. HEENT examination shows pink conjunctivae. Anicteric sclerae. No oropharyngeal lesion. NECK: No neck rigidity. CHEST: Kyphosis. CARDIOPULMONARY: S1, S2, regular rhythm. LUNGS: Shows no audible crackle, rales, occasional wheezing noted. Occasional rhonchi noted in the anterior lung dimas. Questionable decreased breath sounds. ABDOMEN: Soft. Positive bowel sounds. The patient's abdomen is protuberant. Positive midline anterior abdominal wall incisional hernia. GENITALIA: Male. RECTAL: Deferred. EXTREMITIES: Shows no pitting edema. No calf tenderness. No Homans' sign. NEUROLOGIC: The patient is alert, awake, responsive. He is able to move upper and lower extremity without assistance. Gait examination is deferred. VASCULAR: Palpable pulses. Lower extremity shows no pitting edema. Trace swelling of the legs noted. Musculoskeletal: Shows a body mass index of 28. Motor strength is 5/5. Gait examination is independent. PSYCHIATRIC: Positive for history of anxiety. IMPRESSION: 1. Acute exacerbation of chronic obstructive pulmonary disease. 2. Asthmatic bronchitis. 3. Hypoxemia. 4. Noncompliant patient. 5. History of severe noncompliance and poor compliance. 6. Normocytic anemia with granulocytosis. 7. Urine drug screen positive for opiate. 8. History of seizure disorder. 9. Anterior abdominal wall incisional ventral hernia. 10. History of nicotine addiction, alcoholism and drug use. 11. Constipation. 12. History of seizure disorder. 13. Hypovitaminosis D. 14. Vitamin B12 deficiency. 15. Seizure disorder. 16. Hyperlipidemia. 17. Anxiety disorder. PLAN: At this time, the patient is to be continued on Mucomyst nebulizer 20% 4 mL every 6 hours with Xopenex nebulizer 0.63 mg. The patient is on Cepacol lozenges, Colace 100 mg three times a day, Dilantin 200 mg twice a day, doxycycline 100 mg p.o. twice a day, Drisdol 50,000 units weekly, folic acid 1 mg daily, Keppra 500 mg three times a day, Lipitor 40 mg daily, Lovenox 40 mg subcutaneously daily, Protonix 40 mg daily, Pulmicort nebulizer 0.5 mg twice a day, Solu-Medrol 30 mg IV every 12, Tessalon Perles 200 three times a day, Tylenol 650 mg every 6 p.r.n. Ventin 200 mg twice a day, thiamine 100 mg daily, vitamin B12 1000 mcg IM, Xanax 0.5 mg at bedtime, Xopenex nebulizer, Zofran 4 mg IV every 4 p.r.n., out of bed to chair, occupational therapy, physical therapy ordered. The patient will be continued on therapeutic intervention. Dictated and electronically signed, not read. Trevor Yin MD
[2018-06-28] MEDS: Levalbuterol 0.63 MG/3 ML Inhal Soln UD IH SCH ×2 (01:34→07:44)
[2018-06-28] MEDS: Acetylcysteine 20% Inhal Soln (4ml) IH SCH ×2 (01:34→07:44)
[2018-06-28] MEDS: Pantoprazole 40 mg EC Tab PO SCH (05:38)
[2018-06-28] MEDS: Budesonide 0.5 mg/2 ml Inhal Susp UD IH SCH (07:44)
[2018-06-28 08:48] VITALS: BP 132/77; PULSE 78; RESP 18; O2SAT 94
[2018-06-28] MEDS: MethylPREDNISolone 40 mg Vial IVP SCH (09:37)
[2018-06-28] MEDS: Cefpodoxime (Vantin) 200 mg Tab PO SCH (09:37)
--- NOTE | 2018-06-29 02:21 | DS ---
FINAL PROGRESS NOTE/DISCHARGE SUMMARY SUBJECTIVE: The patient is seen sitting up in the bed, in room 570, bed 1. The patient is alert, awake, responsive, in no distress, watching TV. Overnight nurse's notes were reviewed. The patient was found to be ambulating on the floor. The patient was still not 100% compliant with the nurse's recommendation. The patient refused ARISTIDES stockings, SCDs. The patient was found to be alert, awake, oriented x3. The patient states that his breathing is significantly better since the day of admission. PHYSICAL EXAMINATION: VITAL SIGNS: T-max is 98.2, heart rate 78, blood pressure 132/77, respirations 18, O2 sat 94%. HEENT: Head examination, normocephalic, atraumatic. HEENT examination shows pink conjunctivae. Anicteric sclerae. No oropharyngeal lesion. NECK: No neck rigidity. CHEST: Kyphosis. LUNGS: Examination shows improved air entry. No audible wheezing. No crackle, rales or rhonchi. CARDIOVASCULAR: S1 and S2, regular rhythm. ABDOMEN: Examination shows positive midline anterior abdominal wall incisional hernia. GENITALIA: Male. RECTAL: Examination is deferred. EXTREMITIES: Show no pitting edema. No cough tenderness. No Homans sign. The patient refuses to wear ARISTIDES stockings and SCDs. MUSCULOSKELETAL: Examination shows a body mass index of 27.4. DIAGNOSTICS: From 06/23/2018 and the entire hospitalization were reviewed. Imaging studies were reviewed. Microbiology was reviewed. The patient's imaging studies, EKG, venous Doppler all reviewed. The patient was explained about all the details of his medical condition, diagnostic test results, recommendation by all physicians involved in the care of the patient was explained to the patient at length. FINAL IMPRESSION AND DISCHARGE DIAGNOSES: 1. Acute exacerbation of chronic obstructive pulmonary disease with wheezing and acute exacerbation of asthma with asthmatic bronchitis and shortness of breath and wheezing. 2. History of poor compliance. 3. Tachycardia. 4. Hypoxemia. 5. Mild normocytic anemia with granulocytosis. 6. Mild prerenal kidney injury, probably secondary to steroids. 7. Urine drug screen positive for opioids. 8. Bilateral lower extremity venous stasis (resolved). 9. History of alcoholic dilated cardiomyopathy. 10. History of hypertension. 11. Anterior abdominal wall incisional ventral hernia. 12. Right axis deviation. 13. Anxiety disorder. 14. History of seizure disorder. 15. Hypovitaminosis D. 16. Vitamin B12 deficiency. PLAN: At this time, the patient is to be discharged. The patient is currently on Mucomyst nebulizer with Xopenex nebulizer 4 times a day, Cepacol lozenges, Colace 100 mg 3 times a day, Dilantin 200 mg twice a day, doxycycline 100 mg p.o. every 12 hours, Drisdol 50,000 units weekly, folic acid 1 mg daily, Keppra 500 mg 3 times a day, Lipitor 40 mg daily, Lovenox 40 mg subcutaneous daily, Protonix 40 mg daily, Pulmicort nebulizer 0.5 mg every 12 hours, Solu-Medrol 30 IV every 12 hours, prednisone, Tessalon Perles 200 three times a day, Tylenol p.o. suppository p.r.n., Vantin 200 mg twice a day, thiamine 100 mg daily, vitamin B12 1000 mcg IM, Xanax 0.5 mg at bedtime, Zofran 4 IV every 4 hours p.r.n. At present, the patient will be discharged home. The patient will be advised to be discharged home on the following medications. The patient will be discharged home with updated ambulatory orders and renewal of all medications and new script. DISCHARGE MEDICATIONS: Albuterol, ProAir HFA 2 puffs 4 times daily, allopurinol 100 mg daily, Xanax 0.5 mg at bedtime, Lipitor 40 mg daily, vitamin B12 1000 mcg IM monthly, doxycycline 100 mg p.o. every 12 hours, Drisdol 50,000 units weekly, folic acid 1 mg daily Softgel 1 capsule daily, Xopenex 1.25 mg nebulizer 3 times a day, Keppra 500 mg 3 times a day, magnesium oxide 400 twice a day, Myrbetriq 50 mg daily, Protonix 40 mg daily, Dilantin 200 mg twice a day, prednisone tapering 40 mg daily for 3 days, 30 mg daily for 3 days, 20 mg daily for 3 days, 10 mg daily for 3 days with food, Flomax 0.4 mg daily, and thiamine 100 mg p.o. daily. The patient is to be discharged home. Followup with Dr. Yin within this week with all medications. Discharge medications as per updated ambulatory orders and new prescription, which were given to the patient upon discharge. During this hospitalization, the patient was extensively explained about the details of his medical condition, diagnoses, test results. All recommendations were explained to the patient on a daily basis, which he acknowledged and understand. Time spent in the discharge process, 45 minutes. Dictated and electronically signed, not read. Trevor Yin MD
[2018-06-29] MEDS ORDERED: Ergocalciferol 50,000 Intl Units Cap PO SCH (10:00)
== END 2018-06-28 11:45 | disposition home or self-care (01) | DRG 191 ==
LOC: ED 09:57 → ERH 14:03 → 5RSO 16:40 → OBSVTOIN 06-24 13:04 → 5RSO 06-26 01:27
PROVIDERS: ADMIT Internal Medicine; ATTEND Internal Medicine
DX: J44.1 Chronic obstructive pulmonary disease with (acute) exacerbation (principal); J45.901 Unspecified asthma with (acute) exacerbation; I42.0 Dilated cardiomyopathy; I42.6 Alcoholic cardiomyopathy; J20.9 Acute bronchitis, unspecified; J44.0 Chronic obstructive pulmonary disease with (acute) lower respiratory infection; G40.909 Epilepsy, unspecified, not intractable, without status epilepticus; I10 Essential (primary) hypertension; K43.2 Incisional hernia without obstruction or gangrene; I27.20 Pulmonary hypertension, unspecified; R09.02 Hypoxemia; E53.8 Deficiency of other specified B group vitamins; E55.9 Vitamin D deficiency, unspecified; F41.9 Anxiety disorder, unspecified; N40.0 Benign prostatic hyperplasia without lower urinary tract symptoms; E78.5 Hyperlipidemia, unspecified; E03.9 Hypothyroidism, unspecified; D64.9 Anemia, unspecified; I87.8 Other specified disorders of veins; I25.10 Atherosclerotic heart disease of native coronary artery without angina pectoris; F10.21 Alcohol dependence, in remission; K59.00 Constipation, unspecified; Z87.891 Personal history of nicotine dependence; Z91.11 Patient's noncompliance with dietary regimen; Z91.19 Patient's noncompliance with other medical treatment and regimen; Z93.2 Ileostomy status